=== PATIENT | male | born 1965 | race Caucasian/White ===

== ENCOUNTER → 2017-01-24 | Outpatient (CLI) | payer OTHER ==
--- NOTE | 2017-01-24 23:42 | MR ---
EXAMINATION TYPE: MR abdomen wo/w con DATE OF EXAM: 01/24/2017 COMPARISON: NONE HISTORY: ENCOUNTER FOR EXAMINATION POTENTIAL DONOR, RENAL MASS, INDETERMINATE , NORMAL RENAL FUNCTION CONTRAST: Standard multiplanar, multisequence MRI departmental protocol utilizing 18 mL intravenous MultiHance gadolinium contrast. FINDINGS: Liver shows no focal defect. Bile ducts are not dilated. Spleen has normal size and contour . There is no sign of a pancreatic mass. Gallbladder is somewhat contracted. There is no sign of retr operitoneal adenopathy. There is no sign of ascites. The kidneys have normal size and contour. There is no hydronephrosis. There are rounded fluid signal foci in both kidneys. There is an 8 mm cyst in the upper pole right kidney there is a 10 mm cyst in t he lower pole right kidney. There is a 10 mm cyst in the upper pole left kidney. There is an adjacent 8 mm cyst upper pole left kidney. There are other smaller cysts in both kidneys that measure up to 5 mm. There is no sign of a solid renal mass. There is no adrenal mass. The remainder of exam is unrem arkable. I see no pathologic enhancement. IMPRESSION: The exam shows bilateral multiple relatively small renal cortical cysts. No evidence of a solid renal mass.
== END | disposition home or self-care (01) ==
LOC: RADMRIMAIN 19:28
PROVIDERS: ATTEND Internal Medicine
DX: N28.1 Cyst of kidney, acquired (principal)
CPT/HCPCS: 74183; A9577

== ENCOUNTER 2018-01-17 08:24 | Day surgery (SDC) | payer BC, OTHER ==
[2018-01-16 08:55] VITALS: BMI 26.4
[~2018-01-17 08:24] MED LIST: LACTATED RINGERS 1,000 ML IV SCH
[2018-01-17] MEDS ORDERED: LIDOCAINE 1% 20 ML VIAL (10MG/ML) FOR IV START INTRADERMA ONE (08:36)
[2018-01-17 08:38] VITALS: RESP 16; TEMP 98.1
[2018-01-17] MEDS ORDERED: PROPOFOL 10 MG/ML 20 ML VIAL IV ONE (09:23)
--- NOTE | 2018-01-17 09:40 | P.PCN ---
Date of Procedure: 01/17/18 Procedure(s) Performed: BRIEF HISTORY: Patient is a 52-year-old pleasant pleasant white male scheduled for an elective colonoscopy as a part of screening for colorectal neoplasia. PROCEDURE PERFORMED: Colonoscopy with snare polypectomy. PREOPERATIVE DIAGNOSIS: Screening for colon cancer. IV sedation per Anesthesia. PROCEDURE: After informed consent was obtained, the patient, was brought into the endoscopy unit. IV sedation was administered by Anesthesia under continuous monitoring. Digital rectal examination was normal. Initially the Olympus CF- 160 flexible video colonoscope was then inserted in the rectum, gradually advanced into the cecum without any difficulty. Careful examination was performed as the scope was gradually being withdrawn. Ileocecal valve and the appendiceal orifice were visualized and appeared normal. Prep was excellent. Mucosa of the cecum, ascending colon, transverse colon, descending colon, sigmoid colon,appeared normal. In the rectal sigmoid colon at 20 cm from the anal verge there was a 1 cm broad-based polyp removed by snare polypectomy. Rectum appeared normal. Retroflexion was performed in the rectum and no lesions were seen. The patient tolerated the procedure well. IMPRESSION: 1 cm broad-based rectosigmoid polyp status post polypectomy Rest of the colon appeared normal RECOMMENDATIONS: Findings of this examination were discussed with the patient with as well as his family. He was advised to follow with the biopsy results. If the biopsy shows a tubular adenoma, he can have a repeat colonoscopy in 3 years.
[2018-01-17 10:03] VITALS: BP 116/76; PULSE 76
== END 2018-01-17 10:28 | disposition home or self-care (01) ==
LOC: ORWHC2ENDO 08:24
PROVIDERS: ATTEND Internal Medicine Gastroenterology
DX: Z12.11 Encounter for screening for malignant neoplasm of colon (principal); K63.5 Polyp of colon; Z91.030 Bee allergy status
CPT/HCPCS: 88305; 45385; J2704

== ENCOUNTER → 2019-08-08 | Outpatient (CLI) | payer BC ==
--- NOTE | 2019-08-08 14:37 | CONS ---
CONSULTATION DATE OF SERVICE: 08/08/2019 A 53-year-old gentleman who has been evaluated in the [facility] for possible obstructive sleep apnea-hypopnea syndrome. 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 Subsequently, his sleep schedule may change with relationship to his work schedule. He goes to bed at 6 am and gets up at noon when he is working. On the time when he is not working, he goes to bed at 10 pm and gets up around 7 a.m. No problems with falling asleep. No TV in bedroom. He usually sleeps on the back position with very loud snoring according to his . He wakes up from sleep 2 times with nocturia and dry mouth. During the day, he has problems with memory and difficulties to pay attention. [place] Sleepiness Scale is 7. PAST MEDICAL HISTORY: Positive for a left knee problems. PAST SURGICAL HISTORY: Left knee surgery for torn meniscus in 2014 and nephrectomy. The patient does is not sure what side for donation of the kidney in 2017. MEDICATIONS: Vitamin D3, fish oil, vitamin C, Osteo Bi-Flex. SOCIAL HISTORY: Positive for smoking about 1 pack a day for around 25 years, quit around 8 years ago, but presently sometimes smokes about 1 cigarette a day. Alcohol consumption very rarely. FAMILY HISTORY: Snoring. REVIEW OF SYSTEMS: Snoring, awakenings from sleep. PHYSICAL EXAM: gentleman without distress, BP 129/82, HR 89, RR 16, height 6,0, weight 206.8, body mass index 27.9, temperature 97.9, oxygen saturation at room air 98%. OROPHARYNX: Extremely low position of soft palate. Mallampati 4. NOSE: Asymmetric. Some restriction of nasal breathing; possibly nasal septum deviation. NECK: Supple, no JVD. Thyroid is not palpable. LUNGS: Clear to percussion and to auscultation. Good air exchange. No wheezing or rhonchi. HEART: S1, S2 regular. No murmurs, gallops, or rubs. ABDOMEN: Soft and nontender. Bowel sounds are present. No organomegaly appreciated. EXTREMITIES: No clubbing or cyanosis. BLUEPRINT DUPLICATOR: Awake, alert, and oriented X3. Cranial nerves 2 to 7 intact. There is no fasciculation or atrophy. noted. No focal deficits observed. IMPRESSION: 1. Snoring, awakening from sleep with nocturia, extremely low position of soft palate, Mallampati 4. Some restriction of nasal breathing, wide neck 17 inches in circumference, obstructive sleep apnea-hypopnea syndrome. 2. Loud snoring. 3. Swing-shift worker. 4. Isometric nose, possibly nasal septum deviation. 5. Status post nephrectomy for donation of kidney. 6. Status post left knee surgery for torn meniscus, 2014. PLAN: 1. Home sleep apnea test for evaluation of patient's breathing during sleep. 2. CPAP/BiPAP titration if sleep study confirms obstructive sleep apnea-hypopnea syndrome. 3. Preferable position during sleep on the side. 4. No driving if patient feels any sleepiness. 5. I will see patient for follow up visit to explain results of testing and following plan. Thank you very much for referring this patient for consultation. Sincerely, Vipin De La Garza MD, PhD, FAASM Diplomat of [employer] [employer] [employer] [facility] MMODL / IJN: [id number] /
== END | disposition home or self-care (01) ==
LOC: SLEEP 13:17
PROVIDERS: ATTEND Internal Medicine
DX: G47.33 Obstructive sleep apnea (adult) (pediatric) (principal); Z98.890 Other specified postprocedural states; Z90.5 Acquired absence of kidney
CPT/HCPCS: 99211

== ENCOUNTER 2019-09-24 07:58 | Inpatient (IN) | payer BC ==
[2019-09-24] MEDS ORDERED: HYDROmorphone 0.5 MG/0.5 ML SYRINGE IVP STA (08:12)
[2019-09-24] MEDS ORDERED: SODIUM CHLORIDE 0.9% 1,000 ML IV STA (08:12)
--- NOTE | 2019-09-24 08:14 | ED ---
General Adult HPI - General Chief complaint: Abdominal Pain Stated complaint: acute appendicitis Time Seen by Provider: 09/24/19 08:00 Source: patient, RN notes reviewed, old records reviewed Mode of arrival: ambulatory Limitations: no limitations - History of Present Illness Initial comments: This is a 53-year-old male who presents emergency department with past medical history significant for pancreatitis. Patient comes in today stating for 2 days he's had epigastric abdominal pain feels like his pain continues 8 years ago. Patient states she's not a drinker and is never had any gallbladder issues. Patient denies any fever chills per patient denies any nausea vomiting per patient any diarrhea per patient denies any chest pain difficulty breathing shortness of breath. - Related Data Home Medications Medication Instructions Recorded Confirmed Ascorbic Acid [Vitamin C] 500 mg PO DAILY 01/16/18 01/17/18 Cholecalciferol [Vitamin D3] 2,000 unit PO DAILY 01/16/18 01/17/18 Fish Oil/Dha/Epa [Fish Oil 1,200 1 each PO DAILY 01/16/18 01/17/18 mg Fish Oil] Multivitamins, Thera [Multivitamin 1 tab PO DAILY 01/16/18 01/17/18 (formulary)] Allergies Allergy/AdvReac Type Severity Reaction Status Date / Time venom-honey bee Allergy Unknown Verified 09/24/19 08:04 [bee venom (honey bee)] Childhood Review of Systems ROS Statement: Those systems with pertinent positive or pertinent negative responses have been documented in the HPI. ROS Other: All systems not noted in ROS Statement are negative. Past Medical History Past Medical History: No Reported History Additional Past Medical History / Comment(s): one kidney donated History of Any Multi-Drug Resistant Organisms: None Reported Past Surgical History: Orthopedic Surgery Additional Past Surgical History / Comment(s): nephrectomy-unsure which one, left knee surgergy Past Anesthesia/Blood Transfusion Reactions: No Reported Reaction Past Psychological History: No Psychological Hx Reported Smoking Status: Former smoker Past Alcohol Use History: Rare - Past Family History Brother(s) Family Medical History: Cancer General Exam - General Exam Comments Initial Comments: GENERAL: Patient is well-developed and well-nourished. Patient is nontoxic and well- hydrated and is in moderate distress. ENT: Neck is soft and supple. No significant lymphadenopathy is noted. Oropharynx is clear. Moist mucous membranes. Neck has full range of motion without eliciting any pain. EYES: The sclera were anicteric and conjunctiva were pink and moist. Extraocular movements were intact and pupils were equal round and reactive to light. Eyelids were unremarkable. PULMONARY: Unlabored respirations. Good breath sounds bilaterally. No audible rales rhonchi or wheezing was noted. CARDIOVASCULAR: There is a regular rate and rhythm without any murmurs gallops or rubs. ABDOMEN: Patient has epigastric and right upper quadrant abdominal pain SKIN: Skin is clear with no lesions or rashes and otherwise unremarkable. NEUROLOGIC: Patient is alert and oriented x3. Cranial nerves II through XII are grossly intact. Motor and sensory are also intact. Normal speech, volume and content. Symmetrical smile. MUSCULOSKELETAL: Normal extremities with adequate strength and full range of motion. No lower extremity swelling or edema. No calf tenderness. LYMPHATICS: No significant lymphadenopathy is noted PSYCHIATRIC: Normal psychiatric evaluation. Limitations: no limitations Course Vital Signs 09/24/19 07:59 Temperature 98.0 F Pulse Rate 83 Respiratory 18 Rate Blood Pressure 162/95 O2 Sat by Pulse 98 Oximetry Medical Decision Making - Medical Decision Making EKG shows normal sinus rhythm at 71 bpm WA interval is 136 dresses 88 QT interval 38 QTC is 421. Patient's EKG shows no ST segment elevation or depression. Patient was feeling much better after the medications were given. Ultrasound showed no acute cholecystitis - Lab Data Result diagrams: 09/24/19 08:30 09/24/19 08:30 Lab Results 09/24/19 09/24/19 Range/Units 08:30 08:30 WBC 15.3 H (3.8-10.6) k/uL RBC 5.40 (4.30-5.90) m/uL Hgb 16.8 (13.0-17.5) gm/dL Hct 48.4 (39.0-53.0) % MCV 89.6 (80.0-100.0) fL MCH 31.0 (25.0-35.0) pg MCHC 34.6 (31.0-37.0) g/dL RDW 12.3 (11.5-15.5) % Plt Count 295 (150-450) k/uL Neutrophils % 84 % Lymphocytes % 7 % Monocytes % 5 % Eosinophils % 2 % Basophils % 1 % Neutrophils # 12.8 H (1.3-7.7) k/uL Lymphocytes # 1.1 (1.0-4.8) k/uL Monocytes # 0.8 (0-1.0) k/uL Eosinophils # 0.2 (0-0.7) k/uL Basophils # 0.1 (0-0.2) k/uL Sodium 135 L (137-145) mmol/L Potassium 4.6 (3.5-5.1) mmol/L Chloride 102 (98-107) mmol/L Carbon Dioxide 22 (22-30) mmol/L Anion Gap 11 mmol/L BUN 14 (9-20) mg/dL Creatinine 0.90 (0.66-1.25) mg/dL Est GFR (CKD-EPI)AfAm >90 (>60 ml/min/1.73 sqM) Est GFR (CKD-EPI)NonAf >90 (>60 ml/min/1.73 sqM) Glucose 118 H (74-99) mg/dL Calcium 9.5 (8.4-10.2) mg/dL Total Bilirubin 1.3 (0.2-1.3) mg/dL AST 27 (17-59) U/L ALT 25 (4-49) U/L Alkaline Phosphatase 107 (38-126) U/L Total Protein 7.8 (6.3-8.2) g/dL Albumin 4.3 (3.5-5.0) g/dL Amylase 1706 H* (30-110) U/L Lipase (23-300) U/L Disposition Clinical Impression: Pancreatitis Disposition: ADMITTED IP TO THIS HOSP Referrals: Benjamin De MD [Primary Care Provider] - 1-2 days Time of Disposition: 09:39
[2019-09-24 08:58] LABS: ALT 25 U/L (4-49); AST 27 U/L (17-59); African American GFR (CKD) >90 (>60 ml/min/1.73 sqM); Albumin 4.3 g/dL (3.5-5.0); Alkaline Phosphatase 107 U/L (38-126); Anion Gap 11 mmol/L; Basophils # (A) 0.1 k/uL (0-0.2); Basophils % (A) 1 %; Blood Urea Nitrogen 14 mg/dL (9-20); Calcium 9.5 mg/dL (8.4-10.2); Carbon Dioxide 22 mmol/L (22-30); Chloride 102 mmol/L (98-107); Eosinophils # (A) 0.2 k/uL (0-0.7); Eosinophils % (A) 2 %; Glucose 118 mg/dL (74-99); HCT 48.4 % (39.0-53.0); HGB 16.8 gm/dL (13.0-17.5); Lymphocytes # (A) 1.1 k/uL (1.0-4.8); Lymphocytes % (A) 7 %; MCHC 34.6 g/dL (31.0-37.0); MCV 89.6 fL (80.0-100.0); Mean Platelet Volume 6.9; Monocytes # (A) 0.8 k/uL (0-1.0); Monocytes % (A) 5 %; Neutrophils # (A) 12.8 k/uL (1.3-7.7); Neutrophils % (A) 84 %; Non-African American GFR(CKD) >90 (>60 ml/min/1.73 sqM); Platelet Count 295 k/uL (150-450); Potassium 4.6 mmol/L (3.5-5.1); RDW 12.3 % (11.5-15.5); Sodium 135 mmol/L (137-145); Total Bilirubin 1.3 mg/dL (0.2-1.3); Total Protein 7.8 g/dL (6.3-8.2); WBC 15.3 k/uL (3.8-10.6)
--- NOTE | 2019-09-24 09:28 | US ---
EXAMINATION TYPE: US gallbladder DATE OF EXAM: 09/24/2019 COMPARISON: MRI abdomen January 24, 2017 CLINICAL HISTORY: Right upper quadrant abdominal pain . Pain. EXAM MEASUREMENTS: Liver Length: 18.2 cm Gallbladder Wall: 0.3 cm CBD: 0.4 cm Right Kidney: 10.8 x 5.6 x 5.4 cm Limited due to overlying bowel gas Pancreas: Head and tail obscured by bowel gas. Main pancreatic duct = 4.3 mm. Body appears echogen ic. Liver: Appears slightly enlarged Gallbladder: wnl Evidence for sonographic Robles's sign: neg CBD: wnl Right Kidney: No hydronephrosis or masses seen Visualized pancreas is slightly heterogeneous with pancreatic duct mildly dilated at 4 mm towards the proximal body. Portions are obscured by overlying bowel gas. Prominent right hepatic lobe redemonstr ated. Liver is heterogeneous without intrahepatic ductal dilatation. Evaluation for focal masses subo ptimal due to the heterogeneity. No surrounding ascites. Gallbladder appears within normal limits. Li mited images right kidney show no hydronephrosis. Tiny thin-walled cysts on MRI less well-seen on ult rasound images. IMPRESSION: 1. No gallstones or ultrasound evidence for acute cholecystitis. 2. Mild diffuse fatty infiltration of liver is suspected. Correlate clinically. 3. Mild the minimal dilatation of visualized portion of the pancreatic duct in the proximal body. Adv ise pancreatic protocol contrast-enhanced CT or MRI to rule out pancreatic head mass.
[2019-09-24] MEDS ORDERED: SODIUM CHLORIDE 0.9% 1,000 ML IV ONE (09:40)
[2019-09-24] MEDS ORDERED: ONDANSETRON 4 MG/2 ML VIAL IVP PRN (09:41)
[2019-09-24 09:42] LABS: Amylase 1724 U/L (30-110)
[2019-09-24 12:26] LABS: Appearance,Urine Clear (Clear); Bilirubin,Urine Negative (Negative); Blood,Urine Small (Negative); Color,Urine Yellow; Glucose,Urine (UA) Negative (Negative); Ketones,Urine 1+ (Negative); Leukocyte Esterase,Urine Negative (Negative); Mucus,Urine Rare /hpf; Nitrite,Urine Negative (Negative); Protein,Urine 1+ (Negative); RBC,Urine 25 /hpf (0-5); Specific Gravity,Urine 1.018 (1.001-1.035); Urobilinogen,Urine <2.0 mg/dL (<2.0); WBC,Urine 1 /hpf (0-5)
[2019-09-24] MEDS ORDERED: IOPAMIDOL CONTRAST (ORAL USE) VIAL PO PRN (12:51)
[2019-09-24] MEDS: HYDROmorphone 0.5 MG/0.5 ML SYRINGE IVP PRN ×3 (13:04→22:22)
--- NOTE | 2019-09-24 16:36 | CT ---
EXAMINATION TYPE: CT abdomen pelvis w con DATE OF EXAM: 09/24/2019 COMPARISON: Gallbladder ultrasound earlier today. MRI abdomen January 24, 2017 HISTORY: pancreatitis CT DLP: 966.2 mGycm, Automated Exposure Control for Dose Reduction was Utilized. CONTRAST: CT scan of the abdomen and pelvis is performed with oral water and with IV Contrast, patient injected with 100 mL of Isovue 300. FINDINGS: LUNG BASES: Left greater than right bibasilar linear scarring and/or atelectasis LIVER/GB: Liver is heterogeneously hypodense suggesting mild diffuse fatty infiltration. PANCREAS: Pancreas shows visualized duct which is measured upper limits of normal. There is mild diff use prominence with mild to moderate diffuse surrounding fluid and fat stranding. No well-formed flui d collection. No areas of nonenhancement. SPLEEN: No significant abnormality is seen. ADRENALS: Nonspecific slight nodular thickening to left adrenal gland. KIDNEYS: Left kidney is surgically absent. Right kidney shows a few scattered simple thin-walled cyst s throughout. BOWEL: No significant abnormality is seen. PROSTATE/SEMINAL VESICLES: No gross abnormality seen. LYMPH NODES: No greater than 1cm abdominal or pelvic lymph nodes are appreciated. OSSEOUS STRUCTURES: Moderate disc space narrowing and vacuum disc phenomenon lumbosacral junction. OTHER: There is ventral wall hernia near umbilicus containing fat and tiny mesenteric vessels, cortic al scars superior to this is noted in the midline of the anterior abdomen. IMPRESSION: CT findings consistent with a fairly moderate uncomplicated acute pancreatitis. No suspic ious pancreatic masses.
[2019-09-24] MEDS: SODIUM CHLORIDE 0.9% 1,000 ML IV SCH (17:27)
--- NOTE | 2019-09-24 18:30 | CONS ---
CONSULTATION DATE OF DICTATION: 09/24/2019 REASON FOR CONSULTATION: Acute recurrent pancreatitis. HISTORY OF PRESENT ILLNESS: The patient is a 53-year-old pleasant white male who was admitted to the hospital when he presented with severe epigastric pain that started on Monday morning. The pain continued to progressively get worse. He became nauseated and came into the emergency room and subsequently was admitted to the hospital with acute pancreatitis. The patient had a similar episode in July of 2018 and was admitted to [facility] for one week. He has no history of alcohol use. He did have ultrasound of the gallbladder done in the past, which was negative for any gallstones. No family history of acute pancreatitis. During this hospitalization he was noted to have elevated amylase and lipase at 1724 and 9666 consistent with acute pancreatitis. Serum transaminases are within normal limits. PAST MEDICAL HISTORY: Acute pancreatitis in July of 2018. PAST SURGICAL HISTORY: Nephrectomy. HOME MEDICATIONS: Medications at home include vitamin C, vitamin D3, fish oil and multivitamin. SOCIAL HISTORY: No smoking. No alcohol use. FAMILY HISTORY: Unremarkable. REVIEW OF SYSTEMS: CARDIOPULMONARY: No chest pain or shortness of breath. GENITOURINARY: No dysuria or hematuria. MUSCULOSKELETAL: Unremarkable. SKIN: Unremarkable. ENDOCRINE: Unremarkable. PSYCHIATRIC: Unremarkable. NEUROLOGY: Unremarkable. ENT/VISION: Unremarkable. CONSTITUTIONAL: No recent weight loss. No fever, chills, night sweats. HEMATOLOGY: Unremarkable. PHYSICAL EXAMINATION: He appears comfortable. No apparent distress. VITAL SIGNS: Stable. Blood pressure 150/96, pulse rate 80, temperature 96. HEENT examination unremarkable. Conjunctivae pink. Sclerae anicteric. Oral cavity no lesions. NECK: No JVD or lymph node enlargement. CHEST: Clear to auscultation. HEART: Regular rate and rhythm. ABDOMEN: Soft. Bowel sounds are positive. Mild tenderness in the epigastric area. EXTREMITIES: No pedal edema. SKIN: No rashes. NEUROLOGIC: Alert and oriented x3. No focal deficits. LABS/IMAGING: WBC 15.3, hemoglobin 16.8, platelets normal. Basic metabolic panel is within normal limits. Amylase 1724, lipase 9664. ALT, AST, T-bilirubin and alkaline phosphatase are normal. Ultrasound of the abdomen was done this morning that showed slightly dilated pancreatic duct. No gallstones. CT of the abdomen was recommended, which was done this afternoon and revealed findings consistent with fairly moderate uncomplicated acute pancreatitis. No suspicious pancreatic masses or ductal dilation seen. IMPRESSION: Acute recurrent pancreatitis, this being the second episode. The last episode was in July of 2018, at which time he had a hospitalization of one week. No history of alcohol use. Gallbladder ultrasound does not show any evidence of gallstones. His serum transaminases are normal, which makes it unlikely we are dealing with biliary pancreatitis. We will investigate him for autoimmune pancreatitis and also for metabolic causes. RECOMMENDATIONS: 1. N.p.o. 2. Aggressive IV hydration. 3. Repeat labs in the morning. 4. Obtain serum triglycerides and IgG4 levels. 5. The patient will be scheduled for endoscopic ultrasound of the pancreas on an outpatient basis to investigate the etiology. The plan was discussed with him. He is agreeable to it. Thank you for this consultation. MMODL / IJN: [id number] /
[2019-09-24] MEDS: PANTOPRAZOLE 40 MG/10 ML VIAL IVP SCH (20:43)
[2019-09-24] MEDS ORDERED: ENOXAPARIN 40 MG/0.4 ML SYRINGE SQ SCH (23:45)
--- NOTE | 2019-09-24 23:45 | P.HPIM ---
History of Present Illness H&P Date: 09/24/19 Chief Complaint: Abdominal pain History of presenting complaint: This is a very pleasant 53-year-old patient of Dr. griffiths. Normally in fairly good health. Back in July 2018 did have an episode of pancreatitis of [facility]. Patient does complete a course of antibiotics for pneumonia. Now presents with increasing abdominal pain that progressively bec lupe worse in the upper abdomen. No nausea vomiting no fever no chills. Normally has 1 or 2 bowel movements a day. Pain is localized to the upper abdomen did not radiate. No obvious exacerbating or relieving factors. Review of systems: GEN.: Tired EYES: None HEENT: None NECK: None RESPIRATORY: None CARDIOVASCULAR: None GASTROINTESTINAL: As above GENITOURINARY: None MUSCULOSKELETAL: None LYMPHATICS: None HEMATOLOGICAL: None PSYCHIATRY: None NEUROLOGICAL: None. Past medical history to include: Patient has snoring but not been diagnosed with LACHO, no arthritis no reflux Social history: Patient smoked for about 30 years stopped in 2010. Alcohol rarely. 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 . Physical examination: VITAL SIGNS: 98, 83, 18, 162/95, 98% room air GENERAL: BMI 27.8, laying in bed not in distress]. EYES: Pupils equal. Conjunctiva normal. HEENT: External appearance of nose and ears normal, oral cavity grossly normal. NECK: JVD not raised; masses not palpable. HEART: First and second heart sounds are normal; no edema. LUNGS: Respiratory rate normal; clear to auscultation. ABDOMEN: Soft, epigastric tenderness, no guarding or rigidity, liver spleen not palpable, no masses palpable. PSYCH: Alert and oriented x3; mood and affect normal. NEUROLOGICAL: Cranial nerves grossly intact; no facial asymmetry, power and sensation grossly intact. LYMPHATICS: No lymph nodes palpable in the axilla and neck INVESTIGATIONS, reviewed in the clinical context: White count 15.3 hemoglobin 16.8 potassium 4.6 creatinine 0.90 Amylase 1724, lipase 9664 Abdominal ultrasound-no gallstones, mild diffuse fatty infiltration of the liver, minimally titrated pancreatic duct EKG tracing personally reviewed by me-normal sinus rhythm Assessment: -Likely idiopathic pancreatitis could be viral. Patient has no obvious gallstones and no history of any alcoholism. -Leukocytosis from pancreatitis Plan: GI was consulted. Patient put on IV fluids. Was made nothing by mouth. Patient's less significant tenderness. If better by tomorrow morning. The patient clear liquids. Repeat pancreatic enzymes in the morning. Lovenox for DVT prophylaxis. Care was discussed in detail with the patient question were answered. Past Medical History Past Medical History: No Reported History, GERD/Reflux, Pneumonia Additional Past Medical History / Comment(s): Recently diagnosed 09/18/19 with bronchial pneumonia, 08/13/18 pancreatitis, being worked up for LACHO, bilateral knees worn cartlidge-receives injections. History of Any Multi-Drug Resistant Organisms: None Reported Past Surgical History: Orthopedic Surgery Additional Past Surgical History / Comment(s): L nephrectomy (donor), L knee surgery for meniscus tear, L thumb injury with tendon repair, colonoscopy, bilateral eye lasik surgery for vision correction. Past Anesthesia/Blood Transfusion Reactions: No Reported Reaction Smoking Status: Former smoker - Past Family History Brother(s) Family Medical History: Cancer Father Family Medical History: COPD Additional Family Medical History / Comment(s): Father lived to be 89yrs old. He was a smoker. Mother Family Medical History: CVA/TIA Additional Family Medical History / Comment(s): Mother has heart issues and CVA. She is 89yrs old. Medications and Allergies Home Medications Medication Instructions Recorded Confirmed Type Famotidine [Pepcid] 20 mg PO BID 09/24/19 09/24/19 History Glycopyrrolate/Formoterol Fum 2 puff INHALATION RT-BID 09/24/19 09/24/19 History [Bevespi Aerosphere Inhaler] Levofloxacin [Levaquin] 500 mg PO DAILY 09/24/19 09/24/19 History Magnesium Citrate [Citrate of 296 ml PO ONCE 09/24/19 09/24/19 History Magnesia] Psyllium Husk [Metamucil] 0.4 gm PO DAILY 09/24/19 09/24/19 History Allergies Allergy/AdvReac Type Severity Reaction Status Date / Time venom-honey bee Allergy Unknown Verified 09/24/19 08:04 [bee venom (honey bee)] Childhood Physical Exam Vitals: Vital Signs Temp Pulse Resp BP Pulse Ox 09/24/19 10:44 18 09/24/19 09:52 80 18 150/96 96 09/24/19 07:59 98.0 F 83 18 162/95 98 Intake and Output 09/23/19 09/24/19 09/24/19 22:59 06:59 14:59 Other: Voiding Method Toilet Weight 92.986 kg Results CBC & Chem 7: 09/24/19 08:30 09/24/19 08:30 Labs: Abnormal Lab Results - Last 24 Hours (Table) 09/24/19 09/24/19 Range/Units 08:30 08:30 WBC 15.3 H (3.8-10.6) k/uL Neutrophils # 12.8 H (1.3-7.7) k/uL Sodium 135 L (137-145) mmol/L Glucose 118 H (74-99) mg/dL Amylase 1724 H* (30-110) U/L Lipase 9664 H (23-300) U/L Thrombosis Risk Factor Assmnt - Choose All That Apply Any of the Below Risk Factors Present?: Yes Each Factor Represents 1 point: Age 41-60 years, Obesity (BMI >25) Other Risk Factors: No Other congenital or acquired thrombophilia - If yes, enter type in comment: No Thrombosis Risk Factor Assessment Total Risk Factor Score: 2 Thrombosis Risk Factor Assessment Level: Low Risk
[2019-09-25] MEDS: HYDROmorphone 0.5 MG/0.5 ML SYRINGE IVP PRN (03:16)
[2019-09-25] MEDS: SODIUM CHLORIDE 0.9% 1,000 ML IV SCH ×3 (03:18→13:57)
[2019-09-25 08:06] LABS: Cholesterol 169 mg/dL (<200); HDL Cholesterol 56 mg/dL (40-60); LDL Cholesterol,Calculated 92 mg/dL (0-99); Triglycerides 107 mg/dL (<150)
[2019-09-25 08:23] LABS: Amylase 364 U/L (30-110)
[2019-09-25] MEDS ORDERED: ACETAMINOPHEN TAB 325 MG TAB PO PRN (08:27)
[2019-09-25] MEDS ORDERED: ENOXAPARIN 40 MG/0.4 ML SYRINGE SQ SCH (09:00)
[2019-09-25] MEDS: PANTOPRAZOLE 40 MG/10 ML VIAL IVP SCH (10:14)
[2019-09-25 11:27] LABS: IgG Subclass 3 12.6 mg/dL (11.0-85.0); IgG Subclass 4 36.8 mg/dL (3.0-175.0)
[2019-09-25 12:31] VITALS: BP 149/77; PULSE 74; RESP 16; TEMP 98.3
--- NOTE | 2019-09-30 21:15 | P.DS ---
Providers Date of admission: 09/24/19 09:40 Expected date of discharge: 09/25/19 Attending physician: Gurdeep Tracy Consults: 09/24/19 09:40 Consult Physician Urgent Consulting Provider: Brittanie Silveira Consult Reason/Comments: Acute pancreatitis Do you want consulting provider notified?: Yes Primary care physician: Benjamin De [facility] Course: Chief Complaint: Abdominal pain History of presenting complaint: This is a very pleasant 53-year-old patient of Dr. de. Normally in fairly good health. Back in July 2018 did have an episode of pancreatitis of [facility]. Patient does complete a course of antibiotics for pneumonia. Now presents with increasing abdominal pain that progressively became worse in the upper abdomen. No nausea vomiting no fever no chills. Normally has 1 or 2 bowel movements a day. Pain is localized to the upper abdomen did not radiate. No obvious exacerbating or relieving factors. Admit callum with with acute pancreatitis. Patient was made nothing by mouth. Given IV fluids. Improved. Before discharge started tolerating a diet. Consultation: Dr. Noemí Silveira from GI Physical examination: VITAL SIGNS: 37.5, 70, 18, 149/77, 98% on room air GENERAL: Laying in bed, comfortable EYES: Pupils equal. Conjunctiva normal. HEENT: External appearance of nose and ears normal, oral cavity grossly normal. NECK: JVD not raised; masses not palpable. HEART: First and second heart sounds are normal; no edema. LUNGS: Respiratory rate normal; clear to auscultation. ABDOMEN: Soft, no tenderness, no guarding or rigidity, liver spleen not palpable, no masses palpable. PSYCH: Alert and oriented x3; mood and affect normal. INVESTIGATIONS, reviewed in the clinical context: Amylase 364, lipase 639 Previous testing White count 15.3 hemoglobin 16.8 potassium 4.6 creatinine 0.90 Amylase 1724, lipase 9664 Abdominal ultrasound-no gallstones, mild diffuse fatty infiltration of the liver, minimally titrated pancreatic duct EKG tracing personally reviewed by me-normal sinus rhythm Assessment: -Likely idiopathic pancreatitis could be viral. Patient has no obvious gallstones and no history of any alcoholism. -Leukocytosis from pancreatitis -Ketonuria from decreased by mouth intake Disposition: Home Plan - Discharge Summary Discharge Rx Participant: No New Discharge Prescriptions: Continue Famotidine [Pepcid] 20 mg PO BID Psyllium Husk [Metamucil] 0.4 gm PO DAILY Glycopyrrolate/Formoterol Fum [Bevespi Aerosphere Inhaler] 2 puff INHALATION RT-BID Discontinued Magnesium Citrate [Citrate of Magnesia] 296 ml PO ONCE Levofloxacin [Levaquin] 500 mg PO DAILY Discharge Medication List Famotidine [Pepcid] 20 mg PO BID 09/24/19 [History] Glycopyrrolate/Formoterol Fum [Bevespi Aerosphere Inhaler] 2 puff INHALATION RT- BID 09/24/19 [History] Psyllium Husk [Metamucil] 0.4 gm PO DAILY 09/24/19 [History] Follow up Appointment(s)/Referral(s): Brittanie Silveira MD [STAFF PHYSICIAN] - 10/09/19 4:00 pm Benjamin De MD [Primary Care Provider] - 09/27/19 2:00 pm Patient Instructions/Handouts: Pancreatitis (DC), Low Fat Diet (DC) Activity/Diet/Wound Care/Special Instructions: Low fat diet Discharge later today if tolerates lunch. Discharge Disposition: HOME SELF-CARE
== END 2019-09-25 15:12 | disposition home or self-care (01) | DRG 440 ==
LOC: EC 07:58 → 5NMEDONC 09:40
PROVIDERS: ADMIT Hospitalist; ATTEND Hospitalist
DX: K85.90 Acute pancreatitis without necrosis or infection, unspecified (principal); K86.1 Other chronic pancreatitis; Z87.891 Personal history of nicotine dependence; Z90.5 Acquired absence of kidney; Z91.030 Bee allergy status; Z87.01 Personal history of pneumonia (recurrent); Z82.3 Family history of stroke; Z82.5 Family history of asthma and other chronic lower respiratory diseases; Z80.9 Family history of malignant neoplasm, unspecified
CPT/HCPCS: 36415; 74177; 76705; 80053; 80061; 81001; 82150; 82787; 83690; 85025; 93005; 96361; 96374; 99285

== ENCOUNTER → 2020-03-02 | Outpatient (CLI) | payer BC ==
--- NOTE | 2020-03-02 22:26 | MR ---
EXAMINATION TYPE: MR MRCP DATE OF EXAM: 03/02/2020 COMPARISON: CT abdomen and pelvis September 24, 2019. MRI abdomen January 24, 2017. HISTORY: chronic pancreatitis. Two bouts over last 14months Standard multiplanar, multisequence MRI departmental protocol Multiplanar, multisequence images of the abdomen were acquired. Thin and thick slice MRCP imaging per formed on MRI scanner. FINDINGS: Liver/gallbladder/pancreas/biliary system: The liver remains normal in size without concerning solid or cystic mass. Gallbladder folds within normal limits without intraluminal gallstones. Pancreas size slightly diminished from most recent CT felt upper limits of normal in size. No concerning new solid or cystic mass identified. MRCP imaging shows no suspicious intrahepatic or extrahepatic biliary dil atation. No suspicious pancreatic ductal dilatation. There is persistent thin-walled cyst or cystic lesion adjacent to the pancreas measuring 12 mm axial image 17 series 501 adjacent to the SMA and uncinate process. This lesion appears to communication to a side minor pancreatic duct which has direct communication to the main pancreatic duct seen best on MRCP imaging. Lesion not within are surrounded by pancreatic tissue. Other: Simple-appearing thin-walled cysts scattered throughout the right kidney redemonstrated. Left kidney surgically absent. Lung bases are clear. Adrenal glands and spleen within normal limits. No frederick spicious bowel dilatation. No abdominal ascites. Visualized osseous structures are intact. IMPRESSION: MRCP imaging demonstrates 1.2 cm thin-walled cyst with ductal communication to the main p ancreatic duct favoring pseudocyst with complication as appears adjacent to the uncinate process of t he pancreas.
== END | disposition home or self-care (01) ==
LOC: RADMRIMAIN 15:17
PROVIDERS: ATTEND Internal Medicine
DX: K86.2 Cyst of pancreas (principal); K86.1 Other chronic pancreatitis
CPT/HCPCS: 74181

== ENCOUNTER 2020-03-10 07:56 | Inpatient (IN) | payer BC ==
[2020-03-10] MEDS ORDERED: SODIUM CHLORIDE 0.9% 500 ML 500 ML IV STA (08:10)
--- NOTE | 2020-03-10 08:24 | ED ---
General Adult HPI - General Chief complaint: Abdominal Pain Stated complaint: abd pain Time Seen by Provider: 03/10/20 08:02 Source: patient, RN notes reviewed, old records reviewed Mode of arrival: ambulatory Limitations: no limitations - History of Present Illness Initial comments: 55-year-old male history of pancreatitis presenting for evaluation of epigastric abdominal pain. Patient is otherwise quite healthy. He reports over the past 24 hours he developed an epigastric pain which is similar to previous episodes of pancreatitis. No vomiting. He had a normal bowel movement today. No dysuria or hematuria. He is currently following with gastroenterology regarding this recurrent pancreatitis. He does state that he had an MRCP approximately one week ago, he is uncertain of the results of this test. He denies heavy alcohol consumption, states he had 2 beers 48 hours ago. No history of gallstones. - Related Data Home Medications Medication Instructions Recorded Confirmed Ascorbic Acid [Vitamin C] 500 mg PO DAILY 03/10/20 03/10/20 Glucosamine/Chondr Zayas A Sod [Osteo 1 tab PO DAILY 03/10/20 03/10/20 Bi-Flex Caplet] Multivitamins, Thera [Multivitamin 1 tab PO DAILY 03/10/20 03/10/20 (formulary)] [place]-3 Fatty Acids/Fish Oil [Fish 1 cap PO DAILY 03/10/20 03/10/20 Oil 1,000 mg Softgel] Allergies Allergy/AdvReac Type Severity Reaction Status Date / Time venom-honey bee Allergy Unknown Verified 03/10/20 08:43 [bee venom (honey bee)] Childhood Review of Systems ROS Statement: Those systems with pertinent positive or pertinent negative responses have been documented in the HPI. ROS Other: All systems not noted in ROS Statement are negative. Past Medical History Past Medical History: GERD/Reflux, Pneumonia Additional Past Medical History / Comment(s): Recently diagnosed 09/18/19 with bronchial pneumonia, 08/13/18 pancreatitis, being worked up for LACHO, bilateral knees worn cartlidge-receives injections. History of Any Multi-Drug Resistant Organisms: None Reported Past Surgical History: Orthopedic Surgery Additional Past Surgical History / Comment(s): L nephrectomy (donor), L knee surgery for meniscus tear, L thumb injury with tendon repair, colonoscopy, bilateral eye lasik surgery for vision correction. Past Anesthesia/Blood Transfusion Reactions: No Reported Reaction Past Psychological History: No Psychological Hx Reported Smoking Status: Current some day smoker Past Alcohol Use History: Occasional Past Drug Use History: None Reported - Past Family History Brother(s) Family Medical History: Cancer Father Family Medical History: COPD Additional Family Medical History / Comment(s): Father lived to be 89yrs old. He was a smoker. Mother Family Medical History: CVA/TIA Additional Family Medical History / Comment(s): Mother has heart issues and CVA. She is 89yrs old. General Exam Limitations: no limitations General appearance: alert, in no apparent distress Head exam: Present: atraumatic, normocephalic Eye exam: Present: normal appearance, PERRL ENT exam: Present: normal exam Neck exam: Present: normal inspection. Absent: tenderness, meningismus Respiratory exam: Present: normal lung sounds bilaterally. Absent: respiratory distress, wheezes Cardiovascular Exam: Present: regular rate, normal rhythm GI/Abdominal exam: Present: soft, tenderness (Minimal epigastric tenderness). Absent: distended, guarding, rebound Extremities exam: Present: normal inspection, normal capillary refill. Absent: pedal edema, calf tenderness Neurological exam: Present: alert, oriented X3, CN II-XII intact. Absent: motor sensory deficit Psychiatric exam: Present: normal affect, normal mood Skin exam: Present: warm, dry, intact. Absent: cyanosis, diaphoretic Course Vital Signs 03/10/20 03/10/20 07:59 09:10 Temperature 98.1 F Pulse Rate 70 61 Respiratory 16 18 Rate Blood Pressure 159/91 121/75 O2 Sat by Pulse 98 98 Oximetry Medical Decision Making - Medical Decision Making 54-year-old male presenting for evaluation of epigastric abdominal pain, history of pancreatitis. Patient has stable vitals, he has tenderness in the epigastrium. Normal CBC, CMP unremarkable, amylase and lipase are critically high. Given the severity of enzyme elevation patient will be admitted for IV fluids, kept nothing by mouth, will be evaluated by gastroenterology. - Lab Data Result diagrams: 03/10/20 08:14 03/10/20 08:14 Lab Results 03/10/20 03/10/20 03/10/20 Range/Units 08:14 08:14 08:14 WBC 8.3 (3.8-10.6) k/uL RBC 5.07 (4.30-5.90) m/uL Hgb 16.2 (13.0-17.5) gm/dL Hct 46.2 (39.0-53.0) % MCV 91.0 (80.0-100.0) fL MCH 31.9 (25.0-35.0) pg MCHC 35.0 (31.0-37.0) g/dL RDW 12.6 (11.5-15.5) % Plt Count 267 (150-450) k/uL Neutrophils % 68 % Lymphocytes % 16 % Monocytes % 5 % Eosinophils % 8 % Basophils % 1 % Neutrophils # 5.7 (1.3-7.7) k/uL Lymphocytes # 1.3 (1.0-4.8) k/uL Monocytes # 0.5 (0-1.0) k/uL Eosinophils # 0.6 (0-0.7) k/uL Basophils # 0.1 (0-0.2) k/uL PT 9.7 (9.0-12.0) sec INR 0.9 (<1.2) APTT 24.8 (22.0-30.0) sec Sodium 137 (137-145) mmol/L Potassium 4.4 (3.5-5.1) mmol/L Chloride 106 (98-107) mmol/L Carbon Dioxide 21 L (22-30) mmol/L Anion Gap 10 mmol/L BUN 24 H (9-20) mg/dL Creatinine 0.94 (0.66-1.25) mg/dL Est GFR (CKD-EPI)AfAm >90 (>60 ml/min/1.73 sqM) Est GFR (CKD-EPI)NonAf >90 (>60 ml/min/1.73 sqM) Glucose 106 H (74-99) mg/dL Calcium 8.9 (8.4-10.2) mg/dL Total Bilirubin 0.6 (0.2-1.3) mg/dL AST 38 (17-59) U/L ALT 28 (4-49) U/L Alkaline Phosphatase 114 (38-126) U/L Troponin I (0.000-0.034) ng/mL Total Protein 7.3 (6.3-8.2) g/dL Albumin 4.5 (3.5-5.0) g/dL Amylase 3239 H* (30-110) U/L Lipase >79144 H (23-300) U/L Urine Color Urine Appearance (Clear) Urine pH (5.0-8.0) Ur Specific [place] (1.001-1.035) Urine Protein (Negative) Urine Glucose (UA) (Negative) Urine Ketones (Negative) Urine Blood (Negative) Urine Nitrite (Negative) Urine Bilirubin (Negative) Urine Urobilinogen (<2.0) mg/dL Ur Leukocyte Esterase (Negative) Urine RBC (0-5) /hpf Urine WBC (0-5) /hpf Urine Bacteria (None) /hpf Urine Mucus (None) /hpf 03/10/20 03/10/20 Range/Units 08:14 08:22 WBC (3.8-10.6) k/uL RBC (4.30-5.90) m/uL Hgb (13.0-17.5) gm/dL Hct (39.0-53.0) % MCV (80.0-100.0) fL MCH (25.0-35.0) pg MCHC (31.0-37.0) g/dL RDW (11.5-15.5) % Plt Count (150-450) k/uL Neutrophils % % Lymphocytes % % Monocytes % % Eosinophils % % Basophils % % Neutrophils # (1.3-7.7) k/uL Lymphocytes # (1.0-4.8) k/uL Monocytes # (0-1.0) k/uL Eosinophils # (0-0.7) k/uL Basophils # (0-0.2) k/uL PT (9.0-12.0) sec INR (<1.2) APTT (22.0-30.0) sec Sodium (137-145) mmol/L Potassium (3.5-5.1) mmol/L Chloride (98-107) mmol/L Carbon Dioxide (22-30) mmol/L Anion Gap mmol/L BUN (9-20) mg/dL Creatinine (0.66-1.25) mg/dL Est GFR (CKD-EPI)AfAm (>60 ml/min/1.73 sqM) Est GFR (CKD-EPI)NonAf (>60 ml/min/1.73 sqM) Glucose (74-99) mg/dL Calcium (8.4-10.2) mg/dL Total Bilirubin (0.2-1.3) mg/dL AST (17-59) U/L ALT (4-49) U/L Alkaline Phosphatase (38-126) U/L Troponin I <0.012 (0.000-0.034) ng/mL Total Protein (6.3-8.2) g/dL Albumin (3.5-5.0) g/dL Amylase (30-110) U/L Lipase (23-300) U/L Urine Color Yellow Urine Appearance Clear (Clear) Urine pH 5.5 (5.0-8.0) Ur Specific [place] 1.017 (1.001-1.035) Urine Protein Negative (Negative) Urine Glucose (UA) Negative (Negative) Urine Ketones Negative (Negative) Urine Blood Trace H (Negative) Urine Nitrite Negative (Negative) Urine Bilirubin Negative (Negative) Urine Urobilinogen <2.0 (<2.0) mg/dL Ur Leukocyte Esterase Negative (Negative) Urine RBC 1 (0-5) /hpf Urine WBC <1 (0-5) /hpf Urine Bacteria Rare H (None) /hpf Urine Mucus Rare H (None) /hpf Disposition Clinical Impression: Pancreatitis Disposition: ADMITTED IP TO THIS [facility] Condition: Stable Is patient prescribed a controlled substance at d/c from ED?: No Referrals: Benjamin De MD [Primary Care Provider] - 1-2 days Decision to Admit Reason: Admit from EC Decision Date: 03/10/20 Decision Time: 09:46
[2020-03-10 08:33] LABS: Basophils # (A) 0.1 k/uL (0-0.2); Basophils % (A) 1 %; Eosinophils # (A) 0.6 k/uL (0-0.7); Eosinophils % (A) 8 %; HCT 46.2 % (39.0-53.0); HGB 16.2 gm/dL (13.0-17.5); Lymphocytes # (A) 1.3 k/uL (1.0-4.8); Lymphocytes % (A) 16 %; MCH 31.9 pg (25.0-35.0); Mean Platelet Volume 7.1; Monocytes # (A) 0.5 k/uL (0-1.0); Monocytes % (A) 5 %; Neutrophils # (A) 5.7 k/uL (1.3-7.7); Neutrophils % (A) 68 %; Platelet Count 267 k/uL (150-450); RBC 5.07 m/uL (4.30-5.90); RDW 12.6 % (11.5-15.5); WBC 8.3 k/uL (3.8-10.6)
--- NOTE | 2020-03-10 08:38 | XR ---
KUB HISTORY: Abdominal pain Frontal KUB and 2 images Lung bases are clear. Surgical clips present in left upper and lower quadrants. No evident bowel obst ruction or pneumoperitoneum. Degenerative disc changes are present in the visualized spine. Possible vascular calcifications within the pelvis. IMPRESSION: Nonspecific bowel gas pattern. Postop changes.
[2020-03-10 08:41] LABS: Appearance,Urine Clear (Clear); Bacteria,Urine Rare /hpf; Bilirubin,Urine Negative (Negative); Blood,Urine Trace (Negative); Color,Urine Yellow; Glucose,Urine (UA) Negative (Negative); Ketones,Urine Negative (Negative); Leukocyte Esterase,Urine Negative (Negative); Mucus,Urine Rare /hpf; Nitrite,Urine Negative (Negative); PH, Urine 5.5 (5.0-8.0); Protein,Urine Negative (Negative); RBC,Urine 1 /hpf (0-5); Specific Gravity,Urine 1.017 (1.001-1.035); Urobilinogen,Urine <2.0 mg/dL (<2.0); WBC,Urine <1 /hpf (0-5)
[2020-03-10 08:46] LABS: INR 0.9 (<1.2); Prothrombin Time 9.7 sec (9.0-12.0)
[2020-03-10 08:47] LABS: Partial Thromboplastin Time 24.8 sec (22.0-30.0)
[2020-03-10 08:56] LABS: ALT 28 U/L (4-49); AST 38 U/L (17-59); African American GFR (CKD) >90 (>60 ml/min/1.73 sqM); Albumin 4.5 g/dL (3.5-5.0); Alkaline Phosphatase 114 U/L (38-126); Anion Gap 10 mmol/L; Blood Urea Nitrogen 24 mg/dL (9-20); Calcium 8.9 mg/dL (8.4-10.2); Carbon Dioxide 21 mmol/L (22-30); Chloride 106 mmol/L (98-107); Glucose 106 mg/dL (74-99); Non-African American GFR(CKD) >90 (>60 ml/min/1.73 sqM); Potassium 4.4 mmol/L (3.5-5.1); Sodium 137 mmol/L (137-145); Total Bilirubin 0.6 mg/dL (0.2-1.3); Total Protein 7.3 g/dL (6.3-8.2)
[2020-03-10 09:34] LABS: Amylase 3239 U/L (30-110)
[2020-03-10] MEDS ORDERED: NALOXONE 0.4 MG/ML 1 ML VIAL IV PRN (09:43)
[2020-03-10] MEDS ORDERED: MORPHINE SULFATE 4 MG/ML SYRINGE IV PRN (09:43)
[2020-03-10] MEDS: SODIUM CHLORIDE 0.9% 1,000 ML IV SCH ×2 (10:12→20:20)
[2020-03-10] MEDS ORDERED: MORPHINE SULFATE 2 MG/ML SYRINGE IV PRN (12:29)
[2020-03-10] MEDS: ONDANSETRON 4 MG/2 ML VIAL IVP PRN ×2 (12:37→20:30)
--- NOTE | 2020-03-10 12:41 | US ---
EXAMINATION TYPE: US gallbladder DATE OF EXAM: 03/10/2020 COMPARISON: US, CT 09/24/2019 CLINICAL HISTORY: pancreatitis. Pancreatitis, pain EXAM MEASUREMENTS: Liver Length: 17.9 cm Gallbladder Wall: 0.2 cm CBD: 0.3 cm Right Kidney: 11.8 x 5.4 x 6.0 cm Pancreas: Body wnl, head and tail obscured by overlying bowel gas Liver: Upper limits for size, difficult to penetrate Gallbladder: wnl Evidence for sonographic Robles's sign: No CBD: wnl Right Kidney: wnl IMPRESSION: Findings consistent with hepatic steatosis. Some limitations of the exam.
--- NOTE | 2020-03-10 13:14 | P.HPIM ---
History of Present Illness H&P Date: 03/10/20 Chief Complaint: Abdominal pain This is a 54-year-old male with history of idiopathic recurrent acute pancreatitis who presented to the emergency room with epigastric pain. Patient said that his pain started all of a sudden last night and he was anywhere between 7-10 out of 10 in severity. He denies any radiation. No nausea or vomiting. He is having normal bowel movement. He was evaluated in the ER and was found to have a lipase greater than 20,000. He is currently admitted to the hospital for further management. Patient denies any alcohol use. He is not sure if he has been evaluated for hypertriglyceridemia or autoimmune pancreatitis. He recently had an MRCP showing a small pseudocyst. He is currently following with GI in the clinic in that regard. Review of Systems Review of system: 14 points review of systems were obtained and were negative except to what were mentioned in the HPI. Past Medical History Past Medical History: GERD/Reflux, Pneumonia Additional Past Medical History / Comment(s): Recently diagnosed 09/18/19 with bronchial pneumonia, 08/13/18 pancreatitis, being worked up for LACHO, bilateral knees worn cartlidge-receives injections. History of Any Multi-Drug Resistant Organisms: None Reported Past Surgical History: Orthopedic Surgery Additional Past Surgical History / Comment(s): L nephrectomy (donor), L knee surgery for meniscus tear, L thumb injury with tendon repair, colonoscopy, bilateral eye lasik surgery for vision correction. Past Anesthesia/Blood Transfusion Reactions: No Reported Reaction Smoking Status: Current some day smoker - Past Family History Brother(s) Family Medical History: Cancer Father Family Medical History: COPD Additional Family Medical History / Comment(s): Father lived to be 89yrs old. He was a smoker. Mother Family Medical History: CVA/TIA Additional Family Medical History / Comment(s): Mother has heart issues and CVA. She is 89yrs old. Medications and Allergies Home Medications Medication Instructions Recorded Confirmed Type Ascorbic Acid [Vitamin C] 500 mg PO DAILY 03/10/20 03/10/20 History Glucosamine/Chondr Zayas A Sod [Osteo 1 tab PO DAILY 03/10/20 03/10/20 History Bi-Flex Caplet] Multivitamins, Thera [Multivitamin 1 tab PO DAILY 03/10/20 03/10/20 History (formulary)] [place]-3 Fatty Acids/Fish Oil [Fish 1 cap PO DAILY 03/10/20 03/10/20 History Oil 1,000 mg Softgel] Allergies Allergy/AdvReac Type Severity Reaction Status Date / Time venom-honey bee Allergy Unknown Verified 03/10/20 08:43 [bee venom (honey bee)] Childhood Physical Exam Vitals: Vital Signs Temp Pulse Pulse Resp BP BP Pulse Ox 03/10/20 11:05 97.7 F 67 16 121/85 96 03/10/20 09:10 61 18 121/75 98 03/10/20 07:59 98.1 F 70 16 159/91 98 Intake and Output 03/09/20 03/10/20 03/10/20 22:59 06:59 14:59 Other: Weight 90.718 kg General: The patient is awake and alert, in no distress Eye: there is normal conjunctiva bilaterally. Neck: The neck is supple, there is no JVD. Cardiovascular: Normal S1-S2, no S3-S4, no murmurs. Respiratory: Lungs clear to auscultation bilaterally Gastrointestinal: Abdomen is soft, there is mild tenderness to palpation in the epigastric area Musculoskeletal: There is no pedal edema. Neurological:. Speech is normal. Skin: Skin is warm and dry Results CBC & Chem 7: 03/10/20 08:14 03/10/20 08:14 Labs: Abnormal Lab Results - Last 24 Hours (Table) 03/10/20 03/10/20 Range/Units 08:14 08:22 Carbon Dioxide 21 L (22-30) mmol/L BUN 24 H (9-20) mg/dL Glucose 106 H (74-99) mg/dL Amylase 3239 H* (30-110) U/L Lipase >95935 H (23-300) U/L Urine Blood Trace H (Negative) Urine Bacteria Rare H (None) /hpf Urine Mucus Rare H (None) /hpf Assessment and Plan Assessment: 1. Acute pancreatitis, recurrent unknown etiology. Patient denies alcohol abuse. Triglyceride level was normal in September during last episode. No history of gallstones. Repeat ultrasound done in the ER awaiting report. Awaiting GI evaluation. Continue IV fluid hydration, nothing by mouth, pain control with IV morphine as needed. Recent MRCP showed small pseudocyst 2. DVT prophylaxis with subcu heparin
[2020-03-10] MEDS: HEPARIN SODIUM,PORCINE 5,000 UNIT/ML 1 ML VIAL SQ SCH (20:25)
--- NOTE | 2020-03-11 01:55 | CONS ---
CONSULTATION DATE OF DICTATION: 03/10/2020. REASON FOR CONSULTATION: Acute recurrent pancreatitis. HISTORY OF PRESENT ILLNESS: The patient is a 54-year-old pleasant white male admitted to the hospital with acute onset of severe epigastric pain that started last night. The pain continued to progressively get worse associated with some nausea but no emesis, came into the emergency room, was noted to have elevated lipase more than 20,000. The patient had 2 other episodes of acute pancreatitis. The first one was 14 months ago and the second one was 3 months ago. He did have workup done including workup for autoimmune pancreatitis, which was negative. The patient was seen at [facility] and recently had an MRCP done on outpatient basis a week ago that revealed a small pancreatic pseudocyst. He is feeling much better this morning. Abdominal pain has improved. No nausea, no vomiting. No fever, chills, night sweats. PAST MEDICAL HISTORY: GERD, acute recurrent pancreatitis, degenerative joint disease. PAST SURGICAL HISTORY: Left knee surgery, left nephrectomy was a kidney donor, colonoscopy in the past, LASIK surgery. MEDICATIONS: Medications at home include vitamin C, Osteo Bi-Flex, multivitamin, fish oil. ALLERGIES: BEE VENOM. FAMILY HISTORY: Father had COPD. Mother had CVA. SOCIAL HISTORY: Chronic smoker. No alcohol use. REVIEW OF SYSTEMS: CARDIOPULMONARY: No chest pain, shortness of breath. GENITOURINARY: No dysuria or hematuria. MUSCULOSKELETAL: Unremarkable. SKIN: Unremarkable. ENDOCRINE: Unremarkable. PSYCHIATRIC: Unremarkable. NEUROLOGY: Unremarkable. ENT/VISION: Unremarkable. CONSTITUTIONAL: No recent weight loss. No fever, chills, or night sweats. PHYSICAL EXAMINATION: He appears comfortable. No apparent distress. Vital signs are stable. Blood pressure is 121/85, pulse rate is 67, temperature 97.7. HEENT EXAMINATION: Unremarkable. Conjunctivae pink. Sclerae anicteric. Oral cavity no lesions. NECK: No JVD or lymph node enlargement. CHEST: Clear to auscultation. HEART: Regular rate and rhythm. ABDOMEN: Soft. There was tenderness in the epigastric area. Bowel sounds are positive. No organomegaly. EXTREMITIES: No pedal edema. SKIN: No rashes. NEUROLOGIC: Alert and oriented x3. No focal deficits. Ultrasound of the abdomen done today did not show any evidence of gallstones. There was evidence of hepatic steatosis. LABS: Labs at the time of admission to the hospital: WBC 8.3, hemoglobin 16.2, platelets normal. Amylase 3239, lipase more than 20,000. ALT, AST, T-bilirubin and alkaline phosphatase are within normal limits. IMPRESSION: 1. Acute recurrent pancreatitis this being the third episode. The patient presented with severe epigastric pain, nausea, vomiting. Lipase more than 20,000. Serum transaminases are within normal limits. Ultrasound of the abdomen did not show evidence of gallstones. The patient has no history of alcohol abuse. During his previous episode of pancreatitis in September of this year, he did have workup and fasting triglycerides, serum IgG4 levels are all within normal limits. Recently he was seen at [facility] for further evaluation of acute recurrent pancreatitis. He was scheduled for an MRCP that was done a week ago that showed a small pancreatic pseudocyst. RECOMMENDATION: 1. Continue symptomatic and supportive care. 2. Aggressive IV hydration. 3. Pain medications, as needed. 4. Repeat labs in the morning. If they are improving he can be started on clear liquid diet tomorrow. 5. Following discharge from the hospital, he can follow up with the pancreatic specialist at [facility]. Thank you for this consultation. MMODL / IJN: [id number] /
[2020-03-11] MEDS: ACETAMINOPHEN TAB 325 MG TAB PO PRN ×2 (03:42→23:21)
[2020-03-11] MEDS: SODIUM CHLORIDE 0.9% 1,000 ML IV SCH ×4 (03:47→23:22)
[2020-03-11 08:35] LABS: ALT 24 U/L (4-49); AST 34 U/L (17-59); African American GFR (CKD) >90 (>60 ml/min/1.73 sqM); Albumin 3.9 g/dL (3.5-5.0); Alkaline Phosphatase 92 U/L (38-126); Anion Gap 5 mmol/L; Blood Urea Nitrogen 15 mg/dL (9-20); Calcium 8.7 mg/dL (8.4-10.2); Carbon Dioxide 26 mmol/L (22-30); Chloride 107 mmol/L (98-107); Glucose 77 mg/dL (74-99); Non-African American GFR(CKD) >90 (>60 ml/min/1.73 sqM); Potassium 4.7 mmol/L (3.5-5.1); Sodium 138 mmol/L (137-145); Total Protein 6.6 g/dL (6.3-8.2)
[2020-03-11 08:36] LABS: Amylase 673 U/L (30-110)
[2020-03-11 08:37] LABS: Basophils # (A) 0.1 k/uL (0-0.2); Basophils % (A) 1 %; Eosinophils # (A) 0.6 k/uL (0-0.7); Eosinophils % (A) 11 %; HCT 46.3 % (39.0-53.0); HGB 15.2 gm/dL (13.0-17.5); Lymphocytes # (A) 1.5 k/uL (1.0-4.8); Lymphocytes % (A) 30 %; MCHC 32.9 g/dL (31.0-37.0); MCV 94.3 fL (80.0-100.0); Mean Platelet Volume 7.3; Monocytes # (A) 0.3 k/uL (0-1.0); Monocytes % (A) 5 %; Neutrophils # (A) 2.5 k/uL (1.3-7.7); Neutrophils % (A) 49 %; Platelet Count 235 k/uL (150-450); RBC 4.91 m/uL (4.30-5.90); RDW 12.6 % (11.5-15.5)
[2020-03-11] MEDS: HEPARIN SODIUM,PORCINE 5,000 UNIT/ML 1 ML VIAL SQ SCH ×2 (08:47→20:06)
--- NOTE | 2020-03-11 11:47 | P.PN ---
Subjective Progress Note Date: 03/11/20 Patient is doing better today. Abdominal pain is improved significantly. No nausea or vomiting. Objective - Vital Signs Vital signs: Vital Signs Temp 97.6 F 03/11/20 04:10 Pulse 54 L 03/11/20 04:10 Resp 16 03/11/20 04:10 BP 123/69 03/11/20 04:10 Pulse Ox 96 03/11/20 04:10 Intake & Output 03/10/20 03/11/20 03/11/20 18:59 06:59 18:59 Intake Total 0 Balance 0 Weight 90.718 kg Intake: Oral 0 Other: Voiding Method Urinal # Voids 3 - Exam General: The patient is awake and alert, in no distress Eye: there is normal conjunctiva bilaterally. Neck: The neck is supple, there is no JVD. Cardiovascular: Normal S1-S2, no S3-S4, no murmurs. Respiratory: Lungs clear to auscultation bilaterally Gastrointestinal: Abdomen is soft, nontender Musculoskeletal: There is no pedal edema. Neurological:. Speech is normal. Skin: Skin is warm and dry - Labs CBC & Chem 7: 03/11/20 07:27 03/11/20 07:27 Labs: Abnormal Lab Results - Last 24 Hours (Table) 03/11/20 Range/Units 07:27 Amylase 673 H* (30-110) U/L Lipase 1857 H (23-300) U/L Assessment and Plan Assessment: 1. Acute pancreatitis, recurrent unknown etiology. Patient denies alcohol abuse. Triglyceride level was normal in September during last episode. No history of gallstones. Autoimmune pancreatitis workup negative in the past. Repeat ultrasound done in the ER showed no acute findings. Seen and evaluated by GI. Started on clear liquids today for lunch. pain control with IV morphine as needed. Recent MRCP showed small pseudocyst 2. DVT prophylaxis with subcu heparin
--- NOTE | 2020-03-11 16:09 | PN ---
PROGRESS NOTE DATE OF DICTATION: 03/11/2020 This patient is a 54-year-old pleasant white male admitted to the hospital with acute recurrent pancreatitis. He is feeling much better. Has some epigastric discomfort but overall feeling much better compared to yesterday. Nausea and vomiting have resolved. PHYSICAL EXAMINATION: Blood pressure is 123/69, pulse rate 54, temperature 97.6. HEENT examination unremarkable. Conjunctivae pink. Sclerae anicteric. Oral cavity no lesions. NECK: No JVD or lymph node enlargement. CHEST: Clear to auscultation. HEART: Regular rate and rhythm. ABDOMEN: Mild tenderness in the epigastric area. Bowel sounds are positive. No organomegaly. EXTREMITIES: No pedal edema. SKIN: No rashes. NEUROLOGIC: Alert and oriented x3. No focal deficits. LABS: Labs from today show WBC 5, hemoglobin 15.2, platelets normal. Amylase and lipase are down to 673 and 1857, respectively. Total bilirubin and alkaline phosphatase are within normal limits. ALT and AST are normal. IMPRESSION: Acute recurrent pancreatitis, this being the third episode. Etiology remains unclear. All workup so far has been negative. Amylase and lipase are gradually improving. Abdominal pain has improved. RECOMMENDATIONS: 1. Start him on a clear liquid diet. 2. Continue pain medications as needed. 3. If his labs continue to improve, he can be advanced to a low-fat diet tomorrow and can be discharged home with outpatient followup at the [facility], which has already been scheduled. Thank you for this consultation. MMMAEL / LEATHAN: [id number] /
[2020-03-11 20:35] VITALS: RESP 18
[2020-03-12] MEDS: HEPARIN SODIUM,PORCINE 5,000 UNIT/ML 1 ML VIAL SQ SCH (07:39)
[2020-03-12 08:00] LABS: Basophils # (A) 0.1 k/uL (0-0.2); Basophils % (A) 1 %; Eosinophils # (A) 0.5 k/uL (0-0.7); Eosinophils % (A) 12 %; HCT 45.4 % (39.0-53.0); HGB 15.4 gm/dL (13.0-17.5); Lymphocytes # (A) 1.3 k/uL (1.0-4.8); Lymphocytes % (A) 35 %; MCH 31.2 pg (25.0-35.0); MCHC 33.9 g/dL (31.0-37.0); MCV 92.2 fL (80.0-100.0); Mean Platelet Volume 7.2; Monocytes # (A) 0.3 k/uL (0-1.0); Monocytes % (A) 7 %; Neutrophils # (A) 1.6 k/uL (1.3-7.7); Neutrophils % (A) 41 %; Platelet Count 258 k/uL (150-450); RBC 4.93 m/uL (4.30-5.90); RDW 12.5 % (11.5-15.5); WBC 3.8 k/uL (3.8-10.6)
[2020-03-12 08:21] LABS: ALT 29 U/L (4-49); AST 37 U/L (17-59); African American GFR (CKD) >90 (>60 ml/min/1.73 sqM); Alkaline Phosphatase 88 U/L (38-126); Amylase 199 U/L (30-110); Anion Gap 6 mmol/L; Blood Urea Nitrogen 12 mg/dL (9-20); Calcium 8.9 mg/dL (8.4-10.2); Carbon Dioxide 26 mmol/L (22-30); Chloride 106 mmol/L (98-107); Glucose 95 mg/dL (74-99); Non-African American GFR(CKD) >90 (>60 ml/min/1.73 sqM); Potassium 4.7 mmol/L (3.5-5.1); Sodium 138 mmol/L (137-145); Total Bilirubin 0.9 mg/dL (0.2-1.3); Total Protein 6.8 g/dL (6.3-8.2)
[2020-03-12 11:44] VITALS: BP 139/88; PULSE 60; TEMP 97.5
--- NOTE | 2020-03-12 13:18 | P.DS ---
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 In the ER patient was found to have elevated lipase. Patient was admitted for management of acute pancreatitis. In past admissions patient has had extensive workup done for his pancreatitis. Patient denies alcohol abuse. His triglycerides within normal limits. Autoimmune panel was also within normal limits. MRCP showed small pseudocyst. During this admission patient was started on IV fluids. Once his pain improved he was started on a diet. At the time of discharge patient was able to tolerate a diet. Patient was told to follow-up at [facility] for further workup to find the etiology office pancreatitis. I spent greater than 30 minutes completing all discharge tasks Patient Condition at Discharge: Stable Plan - Discharge Summary Discharge Rx Participant: Yes New Discharge Prescriptions: Continue Multivitamins, Thera [Multivitamin (formulary)] 1 tab PO DAILY Ascorbic Acid [Vitamin C] 500 mg PO DAILY [place]-3 Fatty Acids/Fish Oil [Fish Oil 1,000 mg Softgel] 1 cap PO DAILY Glucosamine/Chondr Zayas A Sod [Osteo Bi-Flex Caplet] 1 tab PO DAILY Discharge Medication List Ascorbic Acid [Vitamin C] 500 mg PO DAILY 03/10/20 [History] Glucosamine/Chondr Zayas A Sod [Osteo Bi-Flex Caplet] 1 tab PO DAILY 03/10/20 [History] Multivitamins, Thera [Multivitamin (formulary)] 1 tab PO DAILY 03/10/20 [History] [place]-3 Fatty Acids/Fish Oil [Fish Oil 1,000 mg Softgel] 1 cap PO DAILY 03/10/20 [History] Follow up Appointment(s)/Referral(s): Benjamin De MD [Primary Care Provider] - 1-2 days (patient requesting to call and make his own appointment) Patient Instructions/Handouts: Pancreatitis (DC) Discharge Disposition: HOME SELF-CARE
--- NOTE | 2020-03-12 17:24 | PN ---
PROGRESS NOTE DATE OF DICTATION: 03/12/2020 Patient is a 54-year-old pleasant white male admitted to the hospital with acute recurrent pancreatitis. He is feeling much better. Amylase and lipase have improved. He is on a low-fat diet, tolerating well, and he wants to be discharged home. PHYSICAL EXAMINATION: Appears comfortable. VITAL SIGNS: Stable. Blood pressure 133/75, temperature 97.7 and pulse rate 55. HEENT examination unremarkable. Conjunctivae pink. Sclerae anicteric. Oral cavity no lesions. NECK: No JVD or lymph node enlargement. CHEST: Clear to auscultation. HEART: Regular rate and rhythm. ABDOMEN: Soft. Very minimal tenderness in the epigastric area. Rest of the abdomen benign. EXTREMITIES: No pedal edema. NEUROLOGIC: Alert and oriented x3. No focal deficits. LABS: CBC with differential count is within normal limits. Amylase 199, lipase 214. IMPRESSION: Acute recurrent pancreatitis, this being the third episode. Patient being evaluated at [facility]. He recently had an MRCP done a week ago that showed a small cyst in the pancreatic head. In the past he did have workup with IgG4 levels are that were normal. Serum fasting triglycerides were normal. No history of alcohol use. RECOMMENDATIONS: 1. Continue with low-fat diet. 2. He can be discharged home today. 3. He was advised to follow up at [facility]. 4. Follow up in the office after all workup is done. Thank you for this consultation. SAMUELL / LEATHAN: [id number] /
== END 2020-03-12 13:19 | disposition home or self-care (01) | DRG 439 ==
LOC: EC 07:56 → 5NMEDONC 09:43
PROVIDERS: ADMIT Internal Medicine; ATTEND Internal Medicine
DX: K85.90 Acute pancreatitis without necrosis or infection, unspecified (principal); K86.3 Pseudocyst of pancreas; K86.1 Other chronic pancreatitis; F17.200 Nicotine dependence, unspecified, uncomplicated; K21.9 Gastro-esophageal reflux disease without esophagitis; M19.90 Unspecified osteoarthritis, unspecified site; Z11.59 Encounter for screening for other viral diseases; Z52.4 Kidney donor; Z87.01 Personal history of pneumonia (recurrent); Z91.030 Bee allergy status; Z82.3 Family history of stroke; Z82.5 Family history of asthma and other chronic lower respiratory diseases; Z80.9 Family history of malignant neoplasm, unspecified
CPT/HCPCS: 36415; 74018; 76705; 80053; 81001; 82150; 83690; 84484; 85025; 85610; 85730; 96360; 99285

== ENCOUNTER 2020-05-10 00:26 | Inpatient (IN) | payer BC ==
[2020-05-10] MEDS ORDERED: SODIUM CHLORIDE 0.9% 1,000 ML IV STA ×2 (00:54)
[2020-05-10] MEDS ORDERED: MORPHINE SULFATE 4 MG/ML SYRINGE IV STA (00:54)
[2020-05-10] MEDS ORDERED: ONDANSETRON 4 MG/2 ML VIAL IVP STA (00:54)
[2020-05-10] MEDS ORDERED: PANTOPRAZOLE 40 MG/10 ML VIAL IVP STA (00:54)
[2020-05-10] MEDS ORDERED: SODIUM CHLORIDE 0.9% 500 ML 500 ML IV STA (00:54)
--- NOTE | 2020-05-10 00:55 | ED ---
Abdominal Pain HPI - General Chief Complaint: Abdominal Pain Stated Complaint: Pancreatitis Time Seen by Provider: 05/10/20 00:50 Source: patient, RN notes reviewed, old records reviewed Mode of arrival: ambulatory Limitations: no limitations - History of Present Illness Initial Comments: This is a 54-year-old male DF for evaluation of abdominal pain. Epigastric right upper quadrant abdominal pain. Patient has a history of pain sectors. Patient had upper GI with no complication being pancreatitis. Patient was seen at [facility] for prior surgery, no recent other travel history or sick contacts denies any alcohol abuse. No fevers MD Complaint: abdominal pain -: hour(s) Location: RUQ, epigastric Radiation: epigastric Migration to: bilateral flank Severity: moderate Severity scale (1-10): 7 Quality: stabbing, sharp Consistency: constant Improves With: nothing Worsens With: nothing Context: recent surgery/procedure Associated Symptoms: nausea - Related Data Home Medications Medication Instructions Recorded Confirmed Ascorbic Acid [Vitamin C] 500 mg PO DAILY 03/10/20 03/10/20 Glucosamine/Chondr Zayas A Sod [Osteo 1 tab PO DAILY 03/10/20 03/10/20 Bi-Flex Caplet] Multivitamins, Thera [Multivitamin 1 tab PO DAILY 03/10/20 03/10/20 (formulary)] [place]-3 Fatty Acids/Fish Oil [Fish 1 cap PO DAILY 03/10/20 03/10/20 Oil 1,000 mg Softgel] Allergies Allergy/AdvReac Type Severity Reaction Status Date / Time venom-honey bee Allergy Unknown Verified 05/10/20 00:49 [bee venom (honey bee)] Childhood Review of Systems ROS Statement: Those systems with pertinent positive or pertinent negative responses have been documented in the HPI. ROS Other: All systems not noted in ROS Statement are negative. Past Medical History Past Medical History: Pneumonia Additional Past Medical History / Comment(s): Recently diagnosed 09/18/19 with bronchial pneumonia, 08/13/18 pancreatitis ( 4 times ), being worked up for LACHO, bilateral knees worn cartlidge-receives injections. History of Any Multi-Drug Resistant Organisms: None Reported Past Surgical History: Orthopedic Surgery Additional Past Surgical History / Comment(s): L nephrectomy (donor), L knee surgery for meniscus tear, L thumb injury with tendon repair, colonoscopy, bilat eral eye lasik surgery for vision correction. ERCP Past Anesthesia/Blood Transfusion Reactions: No Reported Reaction Past Psychological History: No Psychological Hx Reported Smoking Status: Former smoker Past Alcohol Use History: None Reported Past Drug Use History: None Reported - Past Family History Brother(s) Family Medical History: Cancer Father Family Medical History: COPD Additional Family Medical History / Comment(s): Father lived to be 89yrs old. He was a smoker. Mother Family Medical History: CVA/TIA Additional Family Medical History / Comment(s): Mother has heart issues and CVA. She is 89yrs old. General Exam Limitations: no limitations General appearance: alert, in no apparent distress Head exam: Present: atraumatic, normocephalic, normal inspection Eye exam: Present: normal appearance, PERRL, EOMI. Absent: scleral icterus, conjunctival injection, periorbital swelling ENT exam: Present: normal exam, mucous membranes moist Neck exam: Present: normal inspection. Absent: tenderness, meningismus, lymphadenopathy Respiratory exam: Present: normal lung sounds bilaterally. Absent: respiratory distress, wheezes, rales, rhonchi, stridor Cardiovascular Exam: Present: regular rate, normal rhythm, normal heart sounds. Absent: systolic murmur, diastolic murmur, rubs, gallop, clicks GI/Abdominal exam: Present: soft, tenderness (epigastric), normal bowel sounds. Absent: distended, guarding, rebound, rigid Extremities exam: Present: normal inspection, full ROM, normal capillary refill. Absent: tenderness, pedal edema, joint swelling, calf tenderness Back exam: Present: normal inspection Neurological exam: Present: alert, oriented X3, CN II-XII intact Psychiatric exam: Present: normal affect, normal mood Skin exam: Present: warm, dry, intact, normal color. Absent: rash Course Vital Signs 05/10/20 05/10/20 00:44 02:00 Temperature 98.6 F Pulse Rate 73 60 Respiratory 18 18 Rate Blood Pressure 156/72 134/70 O2 Sat by Pulse 100 99 Oximetry - Reevaluation(s) Reevaluation #1: 05/10/20 00:55 Medical record is reviewed Reevaluation #2: 05/10/20 03:02 Patient has pain that is controlled Medical Decision Making - Medical Decision Making 54 male DF for evaluation of severe pain. Patient's pain is well-controlled, will admit for acute pancreatitis secondary to procedure - Lab Data Result diagrams: 05/10/20 01:06 05/10/20 01:06 Lab Results 05/10/20 05/10/20 05/10/20 Range/Units 01:06 01:06 01:06 WBC 9.8 (3.8-10.6) k/uL RBC 5.23 (4.30-5.90) m/uL Hgb 15.9 (13.0-17.5) gm/dL Hct 47.1 (39.0-53.0) % MCV 90.0 (80.0-100.0) fL MCH 30.3 (25.0-35.0) pg MCHC 33.7 (31.0-37.0) g/dL RDW 12.0 (11.5-15.5) % Plt Count 251 (150-450) k/uL Neutrophils % 76 % Lymphocytes % 12 % Monocytes % 5 % Eosinophils % 5 % Basophils % 1 % Neutrophils # 7.4 (1.3-7.7) k/uL Lymphocytes # 1.2 (1.0-4.8) k/uL Monocytes # 0.5 (0-1.0) k/uL Eosinophils # 0.5 (0-0.7) k/uL Basophils # 0.1 (0-0.2) k/uL Sodium 138 (137-145) mmol/L Potassium 4.7 (3.5-5.1) mmol/L Chloride 103 (98-107) mmol/L Carbon Dioxide 27 (22-30) mmol/L Anion Gap 8 mmol/L BUN 27 H (9-20) mg/dL Creatinine 1.22 (0.66-1.25) mg/dL Est GFR (CKD-EPI)AfAm 79 (>60 ml/min/1.73 sqM) Est GFR (CKD-EPI)NonAf 68 (>60 ml/min/1.73 sqM) Glucose 109 H (74-99) mg/dL Plasma Lactic Acid Tenzin 0.8 (0.7-2.0) mmol/L Calcium 9.5 (8.4-10.2) mg/dL Total Bilirubin 0.9 (0.2-1.3) mg/dL AST 41 (17-59) U/L ALT 26 (4-49) U/L Alkaline Phosphatase 91 (38-126) U/L Total Protein 7.6 (6.3-8.2) g/dL Albumin 4.6 (3.5-5.0) g/dL Amylase 4837 H* (30-110) U/L Lipase >63116 H (23-300) U/L - Radiology Data Radiology results: report reviewed (X-ray KUB is negative for acute disease), image reviewed Disposition Clinical Impression: Pancreatitis, Abdominal pain, Acute pancreatitis Disposition: ADMITTED IP TO THIS [facility] Condition: Good Is patient prescribed a controlled substance at d/c from ED?: No Referrals: Benjamin De MD [REFERRING] - 1-2 days
[2020-05-10 01:19] LABS: Basophils # (A) 0.1 k/uL (0-0.2); Basophils % (A) 1 %; Eosinophils # (A) 0.5 k/uL (0-0.7); Eosinophils % (A) 5 %; HCT 47.1 % (39.0-53.0); HGB 15.9 gm/dL (13.0-17.5); Lymphocytes # (A) 1.2 k/uL (1.0-4.8); Lymphocytes % (A) 12 %; MCH 30.3 pg (25.0-35.0); MCHC 33.7 g/dL (31.0-37.0); Mean Platelet Volume 6.9; Monocytes # (A) 0.5 k/uL (0-1.0); Monocytes % (A) 5 %; Neutrophils # (A) 7.4 k/uL (1.3-7.7); Neutrophils % (A) 76 %; Platelet Count 251 k/uL (150-450); RBC 5.23 m/uL (4.30-5.90); WBC 9.8 k/uL (3.8-10.6)
[2020-05-10 01:39] LABS: ALT 26 U/L (4-49); AST 41 U/L (17-59); African American GFR (CKD) 79 (>60 ml/min/1.73 sqM); Albumin 4.6 g/dL (3.5-5.0); Alkaline Phosphatase 91 U/L (38-126); Anion Gap 8 mmol/L; Blood Urea Nitrogen 27 mg/dL (9-20); Calcium 9.5 mg/dL (8.4-10.2); Carbon Dioxide 27 mmol/L (22-30); Chloride 103 mmol/L (98-107); Glucose 109 mg/dL (74-99); Non-African American GFR(CKD) 68 (>60 ml/min/1.73 sqM); Potassium 4.7 mmol/L (3.5-5.1); Sodium 138 mmol/L (137-145); Total Bilirubin 0.9 mg/dL (0.2-1.3); Total Protein 7.6 g/dL (6.3-8.2)
--- NOTE | 2020-05-10 01:39 | XR ---
EXAMINATION TYPE: XR KUB DATE OF EXAM: 05/10/2020 COMPARISON: 03/10/2020 HISTORY: Pain TECHNIQUE: 2 views upright FINDINGS: There is no sign of intestinal obstruction or pneumoperitoneum. Fecal pattern is normal. Th ere are no pathologic calcifications. Lung bases are clear. There is no evidence of abdominal mass. IMPRESSION: Nonacute abdomen. No change.
[2020-05-10 02:28] LABS: Amylase 4837 U/L (30-110)
[2020-05-10] MEDS ORDERED: ONDANSETRON 4 MG/2 ML VIAL IVP PRN (03:00)
[2020-05-10] MEDS ORDERED: SODIUM CHLORIDE 0.9% 1,000 ML IV ONE (03:08)
[2020-05-10] MEDS: MORPHINE SULFATE 4 MG/ML SYRINGE IVP PRN ×3 (03:42→19:47)
[2020-05-10] MEDS: PANTOPRAZOLE 40 MG/10 ML VIAL IVP SCH (08:36)
[2020-05-10] MEDS: LACTATED RINGERS 1,000 ML IV SCH ×3 (13:16→23:22)
[2020-05-10] MEDS: ENOXAPARIN 40 MG/0.4 ML SYRINGE SQ SCH (13:16)
--- NOTE | 2020-05-10 17:19 | P.HPIM ---
History of Present Illness H&P Date: 05/10/20 Chief Complaint: Abdominal pain History of presenting complaint: This is a very pleasant 54-year-old patient of Dr. griffiths. Patient prior to today, his had 3 bouts of pancreatitis. Patient underwent endoscopic ultrasound and he was to [place] 2 days ago. Grossly no obvious abnormality was found. Patient came home doing okay. Last night patient started having increasing progressive epigastric pain. Progressed to become rather severe. Patient had nausea followed by vomiting. No fever no chills. Became with severe. Decided to come to the ER. Patient found to have acute pancreatitis. With amylase of 4837, lipase greater than 20,000. Started IV fluids. Nothing by mouth given pain medications but to bedrest. Review of systems: GEN.: Tired EYES: None HEENT: None NECK: None RESPIRATORY: None CARDIOVASCULAR: None GASTROINTESTINAL: As above GENITOURINARY: None MUSCULOSKELETAL: None LYMPHATICS: None HEMATOLOGICAL: None PSYCHIATRY: None NEUROLOGICAL: None. Past medical history to include: Patient has snoring but not been diagnosed with LACHO, no arthritis no reflux, recurrent pancreatitis Social history: Patient smoked for about 30 years stopped in 2010. Alcohol rarely. 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 . Physical examination: VITAL SIGNS: 97.7, 60, 18, 117/72, 98% room air GENERAL: BMI 27.1, laying in bed, tired EYES: Pupils equal. Conjunctiva normal. HEENT: External appearance of nose and ears normal, oral cavity grossly normal. NECK: JVD not raised; masses not palpable. HEART: First and second heart sounds are normal; no edema. LUNGS: Respiratory rate normal; clear to auscultation. ABDOMEN: Soft, epigastric tenderness, no guarding or rigidity, liver spleen not palpable, no masses palpable. PSYCH: Alert and oriented x3; mood and affect normal. NEUROLOGICAL: Cranial nerves grossly intact; no facial asymmetry, power and sensation grossly intact. LYMPHATICS: No lymph nodes palpable in the axilla and neck INVESTIGATIONS, reviewed in the clinical context: White count 9.8 hemoglobin 15.9 platelets 251 potassium 4.7 creatinine 1.22 Amylase 43 7, lipase greater than 20,000 EKG tracing personally reviewed by me-normal sinus rhythm KUB-unremarkable Recent endoscopic ultrasound was to [place] reportedly negative Assessment: -Acute recurrent severe pancreatitis -workup in [facility] at [facility]. Plan: Patient's admitted nothing by mouth. Started IV fluids. Lovenox for DVT prophylaxis. We'll start the patient on clear liquids this evening. Advance to full liquids in the morning as tolerated. Repeat labs in the morning. Care was discussed with the patient. Questions answered. Past Medical History Past Medical History: Pneumonia Additional Past Medical History / Comment(s): Recently diagnosed 09/18/19 with bronchial pneumonia, 08/13/18 pancreatitis ( 4 times ), being worked up for LACHO, bilateral knees worn cartlidge-receives injections. History of Any Multi-Drug Resistant Organisms: None Reported Past Surgical History: Orthopedic Surgery Additional Past Surgical History / Comment(s): L nephrectomy (donor), L knee surgery for meniscus tear, L thumb injury with tendon repair, colonoscopy, bilateral eye lasik surgery for vision correction. ERCP Past Anesthesia/Blood Transfusion Reactions: No Reported Reaction Past Psychological History: No Psychological Hx Reported Additional Psychological History / Comment(s): Pt resides with his spouse. He is independent. Smoking Status: Former smoker Past Alcohol Use History: None Reported Additional Past Alcohol Use History / Comment(s): Pt started smoking in 1979 and basically quit in 2010 but will occasionally bum a cigarettewhen out with frie nds. Past Drug Use History: None Reported - Past Family History Brother(s) Family Medical History: Cancer Father Family Medical History: COPD Additional Family Medical History / Comment(s): Father lived to be 89yrs old. He was a smoker. Mother Family Medical History: CVA/TIA Additional Family Medical History / Comment(s): Mother has heart issues and CVA. She is 89yrs old. Medications and Allergies Home Medications Medication Instructions Recorded Confirmed Type Ascorbic Acid [Vitamin C] 500 mg PO DAILY 03/10/20 05/10/20 History Glucosamine/Chondr Zayas A Sod [Osteo 1 tab PO DAILY 03/10/20 05/10/20 History Bi-Flex Caplet] Multivitamins, Thera [Multivitamin 1 tab PO DAILY 03/10/20 05/10/20 History (formulary)] [place]-3 Fatty Acids/Fish Oil [Fish 1 cap PO DAILY 03/10/20 05/10/20 History Oil 1,000 mg Softgel] Allergies Allergy/AdvReac Type Severity Reaction Status Date / Time venom-honey bee Allergy Unknown Verified 05/10/20 07:35 [bee venom (honey bee)] Childhood Physical Exam Vitals: Vital Signs Temp Pulse Pulse Resp BP BP Pulse Ox 05/10/20 05:00 97.7 F 60 18 117/72 98 05/10/20 03:00 98.0 F 58 L 18 125/65 99 05/10/20 02:00 60 18 134/70 99 05/10/20 00:44 98.6 F 73 18 156/72 100 Intake and Output 05/09/20 05/10/20 05/10/20 22:59 06:59 14:59 Other: # Voids 1 Weight 90.764 kg Results CBC & Chem 7: 05/10/20 01:06 05/10/20 01:06 Labs: Abnormal Lab Results - Last 24 Hours (Table) 05/10/20 Range/Units 01:06 BUN 27 H (9-20) mg/dL Glucose 109 H (74-99) mg/dL Amylase 4837 H* (30-110) U/L Lipase >48133 H (23-300) U/L Thrombosis Risk Factor Assmnt - Choose All That Apply Any of the Below Risk Factors Present?: Yes Each Factor Represents 1 point: Age 41-60 years, Obesity (BMI >25) Thrombosis Risk Factor Assessment Total Risk Factor Score: 2 Thrombosis Risk Factor Assessment Level: Low Risk
[2020-05-10] MEDS ORDERED: ACETAMINOPHEN TAB 325 MG TAB PO PRN (21:59)
[2020-05-11] MEDS: PANTOPRAZOLE 40 MG/10 ML VIAL IVP SCH (09:06)
[2020-05-11] MEDS: ENOXAPARIN 40 MG/0.4 ML SYRINGE SQ SCH (09:07)
[2020-05-11] MEDS: LACTATED RINGERS 1,000 ML IV SCH ×2 (09:09→15:47)
[2020-05-11 11:08] LABS: Amylase 1450 U/L (23-121)
[2020-05-11 11:51] VITALS: BP 130/79; PULSE 64; RESP 17; TEMP 97.9
[2020-05-11 13:03] LABS: ALT 19 U/L (4-49); AST 31 U/L (17-59); African American GFR (CKD) >90 (>60 ml/min/1.73 sqM); Albumin 3.9 g/dL (3.5-5.0); Albumin/Globulin Ratio 1.4; Alkaline Phosphatase 82 U/L (38-126); Anion Gap 7 mmol/L; Blood Urea Nitrogen 14 mg/dL (9-20); Carbon Dioxide 28 mmol/L (22-30); Chloride 102 mmol/L (98-107); Globulin 2.8 g/dL; Glucose 78 mg/dL (74-99); Non-African American GFR(CKD) >90 (>60 ml/min/1.73 sqM); Potassium 4.4 mmol/L (3.5-5.1); Sodium 137 mmol/L (137-145); Total Bilirubin 0.8 mg/dL (0.2-1.3); Total Protein 6.7 g/dL (6.3-8.2)
[2020-05-11 13:29] LABS: Amylase 660 U/L (30-110)
--- NOTE | 2020-05-11 16:49 | P.DS ---
Providers Date of admission: 05/10/20 03:01 Expected date of discharge: 05/11/20 Attending physician: Gurdeep Tracy Primary care physician: Benjamin De [facility] Course: Chief Complaint: Abdominal pain History of presenting complaint: This is a very pleasant 54-year-old patient of Dr. de. Patient prior to today, his had 3 bouts of pancreatitis. Patient underwent endoscopic ultrasound and he was to [place] 2 days ago. Grossly no obvious abnormality was found. Patient came home doing okay. Last night patient started having increasing progressive epigastric pain. Progressed to become rather severe. Patient had nausea followed by vomiting. No fever no chills. Became with severe. Decided to come to the ER. Patient found to have acute pancreatitis. With amylase of 4837, lipase greater than 20,000. Started IV fluids. Nothing by mouth given pain medications but to bedrest. Today-doing much better. No nausea vomiting. No abdominal pain. Tolerating full liquids. Pancreatic enzymes have come down significantly. Keen to go home. Patient to go home on full liquid diet advanced to low-fat as tolerated. Follow-up plan with his physicians at [place] Physical examination: VITAL SIGNS: 97.9, 64, 17, 130/79, 97% room air GENERAL: Sitting on bed, comfortable eating EYES: Pupils equal. Conjunctiva normal. HEENT: External appearance of nose and ears normal, oral cavity grossly normal. NECK: JVD not raised; masses not palpable. HEART: First and second heart sounds are normal; no edema. LUNGS: Respiratory rate normal; clear to auscultation. ABDOMEN: Soft, no tenderness, no guarding or rigidity, liver spleen not palpable, no masses palpable. PSYCH: Alert and oriented x3; mood and affect normal. INVESTIGATIONS, reviewed in the clinical context: Potassium 4.4 creatinine 0.96 amylase 660, lipase 1263 Admission testing White count 9.8 hemoglobin 15.9 platelets 251 potassium 4.7 creatinine 1.22 Amylase 43 7, lipase greater than 20,000 EKG tracing personally reviewed by me-normal sinus rhythm KUB-unremarkable Recent endoscopic ultrasound was to [place] reportedly negative Assessment: -Acute severe pancreatitis secondary to endoscopic ultrasound procedure on the pancreas. Disposition: Home Patient Condition at Discharge: Stable Plan - Discharge Summary New Discharge Prescriptions: No Action Multivitamins, Thera [Multivitamin (formulary)] 1 tab PO DAILY Ascorbic Acid [Vitamin C] 500 mg PO DAILY [place]-3 Fatty Acids/Fish Oil [Fish Oil 1,000 mg Softgel] 1 cap PO DAILY Glucosamine/Chondr Zayas A Sod [Osteo Bi-Flex Caplet] 1 tab PO DAILY Discharge Medication List Ascorbic Acid [Vitamin C] 500 mg PO DAILY 03/10/20 [History] Glucosamine/Chondr Zayas A Sod [Osteo Bi-Flex Caplet] 1 tab PO DAILY 03/10/20 [History] Multivitamins, Thera [Multivitamin (formulary)] 1 tab PO DAILY 03/10/20 [History] [place]-3 Fatty Acids/Fish Oil [Fish Oil 1,000 mg Softgel] 1 cap PO DAILY 03/10/20 [History] Follow up Appointment(s)/Referral(s): Sherry Drummond dr [Other] - 1 Week Benjamin De MD [REFERRING] - 1-2 days Activity/Diet/Wound Care/Special Instructions: low fat - full liqiuds advance as tolerated
== END 2020-05-11 17:19 | disposition home or self-care (01) | DRG 440 ==
LOC: EC 00:26 → 6NMEDSUR 03:01
PROVIDERS: ADMIT Hospitalist; ATTEND Hospitalist
DX: K85.90 Acute pancreatitis without necrosis or infection, unspecified (principal); G47.33 Obstructive sleep apnea (adult) (pediatric); E66.9 Obesity, unspecified; Z68.27 Body mass index [BMI] 27.0-27.9, adult; Z79.899 Other long term (current) drug therapy; Z90.5 Acquired absence of kidney; Z98.890 Other specified postprocedural states; Z87.01 Personal history of pneumonia (recurrent); Z87.891 Personal history of nicotine dependence; Z87.828 Personal history of other (healed) physical injury and trauma; Z91.030 Bee allergy status; Z82.5 Family history of asthma and other chronic lower respiratory diseases; Z82.3 Family history of stroke; Z80.9 Family history of malignant neoplasm, unspecified
CPT/HCPCS: 36415; 74018; 80053; 82150; 83605; 83690; 85025; 96361; 96374; 96375; 99285

== ENCOUNTER 2020-08-16 10:48 | Inpatient (IN) | payer BC ==
[2020-08-16] MEDS ORDERED: SODIUM CHLORIDE 0.9% 1,000 ML IV ONE (11:07)
--- NOTE | 2020-08-16 11:10 | ED ---
General Adult HPI - General Chief complaint: Abdominal Pain Stated complaint: Abd Pain Time Seen by Provider: 08/16/20 11:02 Source: patient, RN notes reviewed, old records reviewed Mode of arrival: ambulatory Limitations: no limitations - History of Present Illness Initial comments: 54-year-old male patient to ED for evaluation. Patient has history of pa ncreatitis. Patient reports that he does not drink alcohol per the current thought why he is having recurrent pancreatitis is that he has sludge in gallbladder which occasionally will migrate down. Patient is being followed by [facility] and is scheduled to have a cholecystectomy performed in early August. For the last 2 days he has been having some very mild epigastric discomfort. Patient reports that is not severe however he states he normally waits too long and by the time he presents to hospital he is in significant distress. He requests to have his lipase checked. His symptoms are similar to his early pancreatitis of the past. Systemic: Pt denies fatigue, fever/chills, rash. Pt denies weakness, night sweats, weight loss. Neuro: Pt denies headache, visual disturbances, syncope or pre-syncope. HEENT: Pt denies ocular discharge or irritation, otalgia, rhinorrhea, ph aryngitis or notable lymphadenopathy. Cardiopulmonary: Pt denies chest pain, SOB, heart palpitations, dyspnea on exertion. Abdominal/GI: Pt denies n/v/d. : Pt denies dysuria, burning w/ urination, frequency/urgency. Denies new onset urinary or bowel incontinence. MSK: Pt denies myalgia, loss of strength or function in extremities. Neuro: Pt denies new onset weakness, paresthesias. - Related Data Home Medications Medication Instructions Recorded Confirmed Ascorbic Acid [Vitamin C] 500 mg PO DAILY 03/10/20 08/16/20 Glucosamine/Chondr Zayas A Sod [Osteo 1 tab PO DAILY 03/10/20 08/16/20 Bi-Flex Caplet] Multivitamins, Thera [Multivitamin 1 tab PO DAILY 03/10/20 08/16/20 (formulary)] [place]-3 Fatty Acids/Fish Oil [Fish 1 cap PO DAILY 03/10/20 08/16/20 Oil 1,000 mg Softgel] Acetaminophen [Tylenol] 500 mg PO Q4-6H PRN 08/16/20 08/16/20 Cholecalciferol [Vitamin D3 (25 1,000 unit PO DAILY 08/16/20 08/16/20 Mcg = 1000 Iu)] Allergies Allergy/AdvReac Type Severity Reaction Status Date / Time venom-honey bee Allergy Unknown Verified 08/16/20 12:37 [bee venom (honey bee)] Childhood Review of Systems ROS Statement: Those systems with pertinent positive or pertinent negative responses have been documented in the HPI. ROS Other: All systems not noted in ROS Statement are negative. Past Medical History Past Medical History: Pneumonia Additional Past Medical History / Comment(s): Recently diagnosed 09/18/19 with bronchial pneumonia, 08/13/18 pancreatitis ( 4 times ), being worked up for LACHO, bilateral knees worn cartlidge-receives injections. History of Any Multi-Drug Resistant Organisms: None Reported Past Surgical History: Orthopedic Surgery Additional Past Surgical History / Comment(s): L nephrectomy (donor), L knee surgery for meniscus tear, L thumb injury with tendon repair, colonoscopy, bilateral eye lasik surgery for vision correction. ERCP Past Anesthesia/Blood Transfusion Reactions: No Reported Reaction Past Psychological History: No Psychological Hx Reported Smoking Status: Former smoker Past Alcohol Use History: None Reported Past Drug Use History: None Reported - Past Family History Brother(s) Family Medical History: Cancer Father Family Medical History: COPD Additional Family Medical History / Comment(s): Father lived to be 89yrs old. He was a smoker. Mother Family Medical History: CVA/TIA Additional Family Medical History / Comment(s): Mother has heart issues and CVA. She is 89yrs old. General Exam - General Exam Comments Initial Comments: Constitutional: NAD, AOX3, Pt has pleasant affect. HEENT: NC/AT, trachea midline, neck supple, no lymphadenopathy. External ears appear normal, without discharge. Mucous membranes moist. Eyes PERRLA, EOM intact. There is no scleral icterus. No pallor noted. Cardiopulmonary: RRR, no murmurs, rubs or gallops, no JVD noted. Lungs CTAB in anterior and posterior blackman. No peripheral edema. Abdominal exam: Abdomen soft and non-distended. Abdomen mildly tender to palpation in epigastric region. No hepatosplenomegaly. No ecchymosis Neuro: CN II-XII grossly intact. No nuchal rigidity. MSK: Full active ROM in upper and lower extremities, 5/5 stregnth. Limitations: no limitations Course Vital Signs 08/16/20 10:58 Temperature 98.6 F Pulse Rate 76 Respiratory 18 Rate Blood Pressure 159/88 O2 Sat by Pulse 98 Oximetry Medical Decision Making - Medical Decision Making 54-year-old male patient to ED for evaluation of very mild epigastric discomfort. Symptoms are consistent patient's pancreatitis in the past. Patient denies alcohol user. Vital signs stable, afebrile. Physical exam did not epigastric tenderness. Laboratory investigations confirmed pancreatitis. KUB displayed mild stool in the right side. Patient nothing by mouth will be admitted , discomfort is minimal this time. Case discussed with Dr. Long. Admitting physician Dr. Kowalski accepts case. - Lab Data Result diagrams: 08/16/20 11:12 08/16/20 11:12 Lab Results 08/16/20 08/16/20 08/16/20 Range/Units 11:12 11:12 11:30 WBC 11.7 H (3.8-10.6) k/uL RBC 5.37 (4.30-5.90) m/uL Hgb 16.8 (13.0-17.5) gm/dL Hct 47.9 (39.0-53.0) % MCV 89.1 (80.0-100.0) fL MCH 31.3 (25.0-35.0) pg MCHC 35.2 (31.0-37.0) g/dL RDW 12.4 (11.5-15.5) % Plt Count 265 (150-450) k/uL MPV 6.7 Neutrophils % 76 % Lymphocytes % 11 % Monocytes % 6 % Eosinophils % 4 % Basophils % 1 % Neutrophils # 8.9 H (1.3-7.7) k/uL Lymphocytes # 1.3 (1.0-4.8) k/uL Monocytes # 0.7 (0-1.0) k/uL Eosinophils # 0.5 (0-0.7) k/uL Basophils # 0.1 (0-0.2) k/uL Sodium 138 (137-145) mmol/L Potassium 4.1 (3.5-5.1) mmol/L Chloride 103 (98-107) mmol/L Carbon Dioxide 27 (22-30) mmol/L Anion Gap 8 mmol/L BUN 19 (9-20) mg/dL Creatinine 1.02 (0.66-1.25) mg/dL Est GFR (CKD-EPI)AfAm >90 (>60 ml/min/1.73 sqM) Est GFR (CKD-EPI)NonAf 84 (>60 ml/min/1.73 sqM) Glucose 101 H (74-99) mg/dL Calcium 10.0 (8.4-10.2) mg/dL Total Bilirubin 0.6 (0.2-1.3) mg/dL AST 35 (17-59) U/L ALT 30 (4-49) U/L Alkaline Phosphatase 98 (38-126) U/L Total Protein 8.0 (6.3-8.2) g/dL Albumin 4.6 (3.5-5.0) g/dL Amylase 3579 H* (30-110) U/L Lipase >93550 H (23-300) U/L Urine Color Light Yellow Urine Appearance Clear (Clear) Urine pH 6.0 (5.0-8.0) Ur Specific [place] 1.011 (1.001-1.035) Urine Protein Negative (Negative) Urine Glucose (UA) Negative (Negative) Urine Ketones Negative (Negative) Urine Blood Negative (Negative) Urine Nitrite Negative (Negative) Urine Bilirubin Negative (Negative) Urine Urobilinogen <2.0 (<2.0) mg/dL Ur Leukocyte Esterase Negative (Negative) Disposition Clinical Impression: Pancreatitis Disposition: ADMITTED IP TO THIS [facility] Condition: Serious Is patient prescribed a controlled substance at d/c from ED?: No Referrals: Benjamin De MD [Primary Care Provider] - 1-2 days
[2020-08-16 11:22] LABS: Basophils # (A) 0.1 k/uL (0-0.2); Basophils % (A) 1 %; Eosinophils # (A) 0.5 k/uL (0-0.7); Eosinophils % (A) 4 %; HCT 47.9 % (39.0-53.0); HGB 16.8 gm/dL (13.0-17.5); Lymphocytes # (A) 1.3 k/uL (1.0-4.8); Lymphocytes % (A) 11 %; MCH 31.3 pg (25.0-35.0); MCHC 35.2 g/dL (31.0-37.0); MCV 89.1 fL (80.0-100.0); Mean Platelet Volume 6.7; Monocytes # (A) 0.7 k/uL (0-1.0); Monocytes % (A) 6 %; Neutrophils # (A) 8.9 k/uL (1.3-7.7); Neutrophils % (A) 76 %; Platelet Count 265 k/uL (150-450); RBC 5.37 m/uL (4.30-5.90); RDW 12.4 % (11.5-15.5); WBC 11.7 k/uL (3.8-10.6)
--- NOTE | 2020-08-16 11:31 | XR ---
EXAMINATION TYPE: XR KUB DATE OF EXAM: 08/16/2020 Comparison: 05/10/2020 Clinical History: 54-year-old male abdominal pain Findings: Lung bases are clear. No evidence for free intraperitoneal air. No dilated small bowel or fluid levels. Surgical clip noted in the left paramedian epigastric region. Mild stool within the right side of the abdomen. Small pelvic phleboliths redemonstrated. Impression: No evidence for free air or bowel obstruction. Mild stool within the right side of the abdomen.
[2020-08-16 11:34] LABS: ALT 30 U/L (4-49); AST 35 U/L (17-59); African American GFR (CKD) >90 (>60 ml/min/1.73 sqM); Albumin 4.6 g/dL (3.5-5.0); Alkaline Phosphatase 98 U/L (38-126); Anion Gap 8 mmol/L; Blood Urea Nitrogen 19 mg/dL (9-20); Carbon Dioxide 27 mmol/L (22-30); Chloride 103 mmol/L (98-107); Glucose 101 mg/dL (74-99); Non-African American GFR(CKD) 84 (>60 ml/min/1.73 sqM); Potassium 4.1 mmol/L (3.5-5.1); Sodium 138 mmol/L (137-145); Total Bilirubin 0.6 mg/dL (0.2-1.3)
[2020-08-16 11:36] LABS: Appearance,Urine Clear (Clear); Bilirubin,Urine Negative (Negative); Blood,Urine Negative (Negative); Color,Urine Light Yellow; Glucose,Urine (UA) Negative (Negative); Ketones,Urine Negative (Negative); Leukocyte Esterase,Urine Negative (Negative); Nitrite,Urine Negative (Negative); Protein,Urine Negative (Negative); Specific Gravity,Urine 1.011 (1.001-1.035); Urobilinogen,Urine <2.0 mg/dL (<2.0)
[2020-08-16 12:27] LABS: Amylase 3579 U/L (30-110)
[2020-08-16 12:39] LABS: Lipase >20000 U/L (23-300)
[2020-08-16] MEDS ORDERED: SODIUM CHLORIDE 0.9% 500 ML 500 ML IV ONE (12:43)
[2020-08-16] MEDS ORDERED: ONDANSETRON 4 MG/2 ML VIAL IVP PRN (12:45)
[2020-08-16] MEDS ORDERED: NALOXONE 0.4 MG/ML 1 ML VIAL IV PRN (12:45)
[2020-08-16] MEDS: SODIUM CHLORIDE 0.9% 1,000 ML IV SCH ×2 (12:54→16:36)
[2020-08-16] MEDS ORDERED: MORPHINE SULFATE 4 MG/ML SYRINGE IVP STA (12:56)
--- NOTE | 2020-08-16 13:47 | US ---
EXAMINATION TYPE: US gallbladder DATE OF EXAM: 08/16/2020 COMPARISON: 03/10/2020 CLINICAL HISTORY: 54-year-old male with Pancreatitis, pt states scheduled for GB removal Aug 28 TECHNIQUE: Multiple sonographic images of the right upper quadrant are obtained. FINDINGS: EXAM MEASUREMENTS: Liver Length: 18.0 cm Gallbladder Wall: 0.2 cm CBD: 0.4 cm Right Kidney: 12.0 x 5.1 x 5.2 cm Pancreas: Obscured by bowel gas Liver: Mildly enlarged, slightly heterogeneous appearance may be on a technical basis. Heterogeneous Gallbladder: There may be some layering sludge. No abnormal distention, wall thickening, pericholecy stic fluid, or shadowing calculi. Evidence for sonographic Robles's sign: No CBD: wnl Right Kidney: wnl IMPRESSION: 1. There may be some gallbladder sludge. No ancillary findings of acute or chronic cholecystitis. 2. Mild hepatomegaly at 18.0 cm. 3. No biliary ductal dilatation. 4. The pancreas is obscured and not assessed.
--- NOTE | 2020-08-16 14:41 | P.HPIM ---
History of Present Illness H&P Date: 08/16/20 Chief Complaint: CC: Abdominal pain found to have acute pancreatitis Patient is a 54-year-old male with a past medical history of recurrent pancreatitis who presents to the ED with abdominal pain consistent with his previous episodes of pancreatitis. Patient states that about a week ago he had Ag's and over the holidays he may have been eating food that was high in fat. Patient denies any alcohol. He states that he was worked up at [facility] for the etiology of his pancreatitis. He was told that due to gallbladder sludge may be causing him to have these recurrent episodes of pancreatitis. He states that he is scheduled for a cholecystectomy on August 27 at [facility]. Patient states that he would like to get over this episode of acute pancreatitis and then follow-up at [facility] for cholecystectomy. In the ED patient's amylase and lipase were elevated. Review of Systems 10 ROS reviewed and are negative except as noted in HPI Past Medical History Past Medical History: Pneumonia Additional Past Medical History / Comment(s): Recently diagnosed 09/18/19 with bronchial pneumonia, 08/13/18 pancreatitis ( 4 times ), being worked up for LACHO, bilateral knees worn cartlidge-receives injections. History of Any Multi-Drug Resistant Organisms: None Reported Past Surgical History: Orthopedic Surgery Additional Past Surgical History / Comment(s): L nephrectomy (donor), L knee surgery for meniscus tear, L thumb injury with tendon repair, colonoscopy, bilateral eye lasik surgery for vision correction. ERCP Past Anesthesia/Blood Transfusion Reactions: No Reported Reaction Past Psychological History: No Psychological Hx Reported Smoking Status: Former smoker Past Alcohol Use History: None Reported Past Drug Use History: None Reported - Past Family History Brother(s) Family Medical History: Cancer Father Family Medical History: COPD Additional Family Medical History / Comment(s): Father lived to be 89yrs old. He was a smoker. Mother Family Medical History: CVA/TIA Additional Family Medical History / Comment(s): Mother has heart issues and CVA. She is 89yrs old. Medications and Allergies Home Medications Medication Instructions Recorded Confirmed Type Ascorbic Acid [Vitamin C] 500 mg PO DAILY 03/10/20 08/16/20 History Glucosamine/Chondr Zayas A Sod [Osteo 1 tab PO DAILY 03/10/20 08/16/20 History Bi-Flex Caplet] Multivitamins, Thera [Multivitamin 1 tab PO DAILY 03/10/20 08/16/20 History (formulary)] [place]-3 Fatty Acids/Fish Oil [Fish 1 cap PO DAILY 03/10/20 08/16/20 History Oil 1,000 mg Softgel] Acetaminophen [Tylenol] 500 mg PO Q4-6H PRN 08/16/20 08/16/20 History Cholecalciferol [Vitamin D3 (25 1,000 unit PO DAILY 08/16/20 08/16/20 History Mcg = 1000 Iu)] Allergies Allergy/AdvReac Type Severity Reaction Status Date / Time venom-honey bee Allergy Unknown Verified 08/16/20 12:37 [bee venom (honey bee)] Childhood Physical Exam Osteopathic Statement: *. No significant issues noted on an osteopathic structural exam other than those noted in the History and Physical/Consult. Vitals: Vital Signs Temp Pulse Resp BP Pulse Ox 08/16/20 10:58 98.6 F 76 18 159/88 98 Intake and Output 08/15/20 08/16/20 08/16/20 22:59 06:59 14:59 Other: Weight 90.718 kg General: [Alert and oriented, well nourished, no acute distress]. Eye: [PERRL, EOMI, normal conjunctiva]. HENT: [Normocephalic, clear tympanic membranes, normal hearing, moist oral mucosa, no scleral icterus, no sinus tenderness]. Neck: [Supple, non-tender, no carotid bruits, no JVD, no lymphadenopathy]. Lungs: [Clear to auscultation and percussion, non-labored respiration]. Heart: [Normal rate, regular rhythm, no murmur, gallop or edema]. Abdomen: [Soft, tenderness to palpate in the epigastric area, non-distended, normal bowel sounds, no masses]. Musculoskeletal: [Normal range of motion and strength, no tenderness or swelling]. Skin: [Skin is warm, dry and pink, no rashes or lesions]. Neurologic: [Awake, alert, and oriented X3, CN II-XII intact]. Psychiatric: [Cooperative, appropriate mood and affect]. Results CBC & Chem 7: 08/16/20 11:12 08/16/20 11:12 Labs: Abnormal Lab Results - Last 24 Hours (Table) 08/16/20 08/16/20 Range/Units 11:12 11:12 WBC 11.7 H (3.8-10.6) k/uL Neutrophils # 8.9 H (1.3-7.7) k/uL Glucose 101 H (74-99) mg/dL Amylase 3579 H* (30-110) U/L Lipase >99620 H (23-300) U/L Assessment and Plan Assessment: Acute recurrent pancreatitis likely due to gallbladder sludge -Nothing by mouth -Aggressive IV fluids -Pain control -Right upper quadrant ultrasound shows gallbladder sludge and no bile duct dilation -Patient states he is scheduled for cholecystectomy at [facility] on August 27 and he would like to get this procedure done over there -Trend lipase daily CODE STATUS:full code DVT prophylaxis: mechanical Discussed with: Patient, ER, rn Anticipated length of stay < than [address]: home A total of 75 minutes was spent on the care of this complex patient more than 50% of the time was spent in counseling and care coordination.
[2020-08-16] MEDS: MORPHINE SULFATE 4 MG/ML SYRINGE IV PRN ×2 (16:34→23:37)
[2020-08-17] MEDS: SODIUM CHLORIDE 0.9% 1,000 ML IV SCH (01:38)
[2020-08-17 06:37] LABS: Basophils # (A) 0.1 k/uL (0-0.2); Basophils % (A) 1 %; Eosinophils # (A) 0.5 k/uL (0-0.7); Eosinophils % (A) 8 %; HCT 43.6 % (39.0-53.0); HGB 14.8 gm/dL (13.0-17.5); Lymphocytes # (A) 1.6 k/uL (1.0-4.8); Lymphocytes % (A) 24 %; MCH 31.2 pg (25.0-35.0); MCHC 34.1 g/dL (31.0-37.0); MCV 91.6 fL (80.0-100.0); Mean Platelet Volume 6.8; Monocytes # (A) 0.4 k/uL (0-1.0); Monocytes % (A) 6 %; Neutrophils # (A) 3.9 k/uL (1.3-7.7); Neutrophils % (A) 59 %; Platelet Count 223 k/uL (150-450); RBC 4.76 m/uL (4.30-5.90); RDW 12.4 % (11.5-15.5); WBC 6.6 k/uL (3.8-10.6)
[2020-08-17 07:32] VITALS: RESP 17
[2020-08-17] MEDS ORDERED: ACETAMINOPHEN TAB 325 MG TAB PO PRN (08:01)
[2020-08-17 10:08] LABS: African American GFR (CKD) 99.8 (60.0-200.0); Albumin 3.9 g/dL (3.80-4.90); Albumin/Globulin Ratio 1.77 (1.60-3.17); Anion Gap 3.7 mmol/L (4.00-12.00); Calcium 8.5 mg/dL (8.7-10.3); Carbon Dioxide 29.3 mmol/L (21.6-31.8); Globulin 2.2 g/dL (1.6-3.3); Non-African American GFR(CKD) 86.2 (60.0-200.0); Potassium 4.3 mmol/L (3.5-5.5); Total Bilirubin 0.8 mg/dL (0.2-1.2); Total Protein 6.1 g/dL (6.2-8.2)
[2020-08-17 14:35] VITALS: BP 129/80; PULSE 65; TEMP 97.8
--- NOTE | 2020-08-17 14:51 | P.DS ---
Providers Date of admission: 08/16/20 12:58 Expected date of discharge: 08/17/20 Attending physician: Kimberly Wang DO Primary care physician: Benjamin De MD Hospital Course: Patient is 54-year-old male with a PMH of recurrent pancreatitis who had presented to the emergency room with complaints of epigastric abdominal pain, consistent with his previous episodes of pancreatitis. The patient had reported that he had not been compliant to his dietary restrictions and had been consuming large amounts of fatty food over the week prior to presentation. The patient also reported that he has been following at [facility] for his pancreatitis, which is believed to be secondary to biliary sludge, for which he is scheduled to undergo cholecystectomy on August 28/2021. The patient was admitted to the medicine service and was seen on the day of discharge at the bedside. He reported complete resolution of his pain, rated 0 out of 10 at the time of interview. The patient was also started on a full liquid diet which was tolerated very well with no pain. The patient is eager to be discharged and noted that he is going to adhere to his dietary restrictions until his cholecystectomy at [facility]. Strongly advised the patient on the importance of his follow-up and the dangers of recurrent episodes of pancreatitis. The patient's lipase improved significantly from greater than 20,000 to 1347. The patient verbalized understanding. The patient is eager, and ready for discharge to home. Physical Examination General: Non-toxic, in no acute distress, appears stated age, normal weight HEENT: NC/AT, anicteric sclerae, moist conjunctiva, no lid-lag, PERRLA Cardiovascular: S1/S2 wnl, no murmurs, rubs, or gallops Lungs: Clear to auscultation, normal respiratory effort, no accessory muscle use Abdominal: Soft, non-tender, non-distended, no guarding, rebound, or rigidity Skin: Warm, dry Extremities: No edema or contractures Psychiatric: Alert and oriented to person, place and time, appropriate affect Neuro: CN II-XII grossly intact, Strength 5/5 in all 4 extremities, Speech intact, Sensation to light touch grossly intact throughout Discharge diagnosis: Acute pancreatitis; leukocytosis, resolved A total of 35 minutes of time were spent preparing this complex discharge summary. Patient Condition at Discharge: Stable Plan - Discharge Summary Discharge Rx Participant: No New Discharge Prescriptions: Continue Multivitamins, Thera [Multivitamin (formulary)] 1 tab PO DAILY Ascorbic Acid [Vitamin C] 500 mg PO DAILY [place]-3 Fatty Acids/Fish Oil [Fish Oil 1,000 mg Softgel] 1 cap PO DAILY Glucosamine/Chondr Zayas A Sod [Osteo Bi-Flex Caplet] 1 tab PO DAILY Cholecalciferol [Vitamin D3 (25 Mcg = 1000 Iu)] 1,000 unit PO DAILY Acetaminophen [Tylenol] 500 mg PO Q4-6H PRN PRN Reason: Pain Or Fever > 100.5 Discharge Medication List Ascorbic Acid [Vitamin C] 500 mg PO DAILY 03/10/20 [History] Glucosamine/Chondr Zayas A Sod [Osteo Bi-Flex Caplet] 1 tab PO DAILY 03/10/20 [History] Multivitamins, Thera [Multivitamin (formulary)] 1 tab PO DAILY 03/10/20 [History] [place]-3 Fatty Acids/Fish Oil [Fish Oil 1,000 mg Softgel] 1 cap PO DAILY 03/10/20 [History] Acetaminophen [Tylenol] 500 mg PO Q4-6H PRN 08/16/20 [History] Cholecalciferol [Vitamin D3 (25 Mcg = 1000 Iu)] 1,000 unit PO DAILY 08/16/20 [History] Follow up Appointment(s)/Referral(s): Benjamin De MD [Primary Care Provider] - 1-2 days Discharge Disposition: HOME SELF-CARE
== END 2020-08-17 16:05 | disposition home or self-care (01) | DRG 440 ==
LOC: EC 10:48 → 4SSUR 12:58
PROVIDERS: ADMIT Internal Medicine; ATTEND Internal Medicine
DX: K85.90 Acute pancreatitis without necrosis or infection, unspecified (principal); K86.1 Other chronic pancreatitis; K82.8 Other specified diseases of gallbladder; Z90.5 Acquired absence of kidney; Z52.4 Kidney donor; Z91.030 Bee allergy status; Z87.01 Personal history of pneumonia (recurrent); Z87.891 Personal history of nicotine dependence; Z82.5 Family history of asthma and other chronic lower respiratory diseases; Z82.3 Family history of stroke; Z82.49 Family history of ischemic heart disease and other diseases of the circulatory system; Z98.890 Other specified postprocedural states
CPT/HCPCS: 36415; 74018; 76705; 80053; 81003; 82150; 83690; 85025; 96361; 96374; 99285

== ENCOUNTER 2021-07-17 19:43 | Observation (INO) | payer BC ==
[2021-07-17] MEDS ORDERED: PANTOPRAZOLE 40 MG/10 ML VIAL IVP STA (23:10)
[2021-07-17] MEDS ORDERED: SODIUM CHLORIDE 0.9% 1,000 ML IV STA ×2 (23:10)
[2021-07-17] MEDS ORDERED: MORPHINE SULFATE 4 MG/ML SYRINGE IV STA (23:16)
[2021-07-17] MEDS ORDERED: ONDANSETRON 4 MG/2 ML VIAL IVP STA (23:16)
[2021-07-17 23:58] LABS: Basophils # (A) 0.1 k/uL (0-0.2); Basophils % (A) 1 %; Eosinophils # (A) 0.6 k/uL (0-0.7); Eosinophils % (A) 6 %; HCT 45.2 % (39.0-53.0); HGB 16.1 gm/dL (13.0-17.5); Lymphocytes # (A) 1.5 k/uL (1.0-4.8); Lymphocytes % (A) 16 %; MCH 31.3 pg (25.0-35.0); MCHC 35.7 g/dL (31.0-37.0); MCV 87.7 fL (80.0-100.0); Mean Platelet Volume 7.3; Monocytes # (A) 0.6 k/uL (0-1.0); Monocytes % (A) 6 %; Neutrophils # (A) 6.8 k/uL (1.3-7.7); Neutrophils % (A) 69 %; Platelet Count 240 k/uL (150-450); RBC 5.15 m/uL (4.30-5.90); WBC 9.8 k/uL (3.8-10.6)
--- NOTE | 2021-07-17 23:58 | ED ---
Abdominal Pain HPI - General Chief Complaint: Abdominal Pain Stated Complaint: Abdominal Pain Time Seen by Provider: 07/17/21 22:53 Source: patient, RN notes reviewed, old records reviewed Mode of arrival: ambulatory Limitations: no limitations - History of Present Illness Initial Comments: This is a 55-year-old male DF for evaluation. Patient has a for evaluation of nausea vomiting abdominal pain. History of pancreatitis has had his gallbladder removed with sudden [place] contacts. Patient's pain is severe in nature with nausea vomiting. No other complaints no fevers. Denies drugs or alcohol. MD Complaint: abdominal pain -: hour(s) Location: epigastric Radiation: epigastric Migration to: bilateral flank Severity: severe Severity scale (1-10): 10 Consistency: constant Improves With: nothing Worsens With: nothing Associated Symptoms: nausea, vomiting Treatments Prior to Arrival: NSAIDs - Related Data Home Medications Medication Instructions Recorded Confirmed Ascorbic Acid [Vitamin C] 500 mg PO DAILY 03/10/20 08/16/20 Glucosamine/Chondr Zayas A Sod [Osteo 1 tab PO DAILY 03/10/20 08/16/20 Bi-Flex Caplet] Multivitamins, Thera [Multivitamin 1 tab PO DAILY 03/10/20 08/16/20 (formulary)] [place]-3 Fatty Acids/Fish Oil [Fish 1 cap PO DAILY 03/10/20 08/16/20 Oil 1,000 mg Softgel] Acetaminophen [Tylenol] 500 mg PO Q4-6H PRN 08/16/20 08/16/20 Cholecalciferol [Vitamin D3 (25 1,000 unit PO DAILY 08/16/20 08/16/20 Mcg = 1000 Iu)] Allergies Allergy/AdvReac Type Severity Reaction Status Date / Time venom-honey bee Allergy Unknown Verified 07/17/21 20:13 [bee venom (honey bee)] Childhood Review of Systems ROS Statement: Those systems with pertinent positive or pertinent negative responses have been documented in the HPI. ROS Other: All systems not noted in ROS Statement are negative. Past Medical History Past Medical History: Pneumonia Additional Past Medical History / Comment(s): bronchial pneumonia, 08/13/18 pancreatitis ( 4 times ), being worked up for LACHO, bilateral knees worn cartlidge-receives injections. History of Any Multi-Drug Resistant Organisms: None Reported Past Surgical History: Orthopedic Surgery Additional Past Surgical History / Comment(s): L nephrectomy (donor), L knee surgery for meniscus tear, L thumb injury with tendon repair, colonoscopy, bilateral eye lasik surgery for vision correction. ERCP Past Anesthesia/Blood Transfusion Reactions: No Reported Reaction Past Psychological History: No Psychological Hx Reported Smoking Status: Former smoker Past Alcohol Use History: None Reported Past Drug Use History: None Reported - Past Family History Father Family Medical History: COPD Additional Family Medical History / Comment(s): Father lived to be 89yrs old. He was a smoker. Mother Family Medical History: CVA/TIA Additional Family Medical History / Comment(s): Mother has heart issues and CVA. She is 89yrs old. General Exam Limitations: no limitations General appearance: alert, in no apparent distress, anxious Head exam: Present: atraumatic, normocephalic, normal inspection Eye exam: Present: normal appearance, PERRL, EOMI. Absent: scleral icterus, conjunctival injection, periorbital swelling ENT exam: Present: normal exam, mucous membranes moist Neck exam: Present: normal inspection. Absent: tenderness, meningismus, lymphadenopathy Respiratory exam: Present: normal lung sounds bilaterally. Absent: respiratory distress, wheezes, rales, rhonchi, stridor Cardiovascular Exam: Present: regular rate, normal rhythm, normal heart sounds. Absent: systolic murmur, diastolic murmur, rubs, gallop, clicks GI/Abdominal exam: Present: soft, tenderness (Severe epigastric tenderness), normal bowel sounds. Absent: distended, guarding, rebound, rigid Extremities exam: Present: normal inspection, full ROM, normal capillary refill. Absent: tenderness, pedal edema, joint swelling, calf tenderness Back exam: Present: normal inspection Neurological exam: Present: alert, oriented X3, CN II-XII intact Psychiatric exam: Present: normal affect, normal mood Skin exam: Present: warm, dry, intact, normal color. Absent: rash Course Vital Signs 07/17/21 07/18/21 07/18/21 20:09 00:42 02:47 Temperature 98.5 F Pulse Rate 85 70 78 Respiratory 20 18 17 Rate Blood Pressure 146/84 179/105 142/72 O2 Sat by Pulse 99 98 98 Oximetry - Reevaluation(s) Reevaluation #1: 07/18/21 03:50 Record is reviewed Reevaluation #2: 07/18/21 03:50 symptoms are improved although still with nausea and recurrent pain Reevaluation #3: 07/18/21 03:51 Patient is informed of results and questions have been answered - Consultations Consultation #1: Spoke with Sound Dr. Almazan agreed to admit this patient Medical Decision Making - Medical Decision Making 55 male to the emergency department was severe recurrent pancreatitis. Patient will be admitted for abdominal pain, pain control and IV hydration and nothing by mouth status - Lab Data Result diagrams: 07/17/21 23:29 07/17/21 23:29 Lab Results 07/17/21 07/17/21 Range/Units 23:29 23:29 WBC 9.8 (3.8-10.6) k/uL RBC 5.15 (4.30-5.90) m/uL Hgb 16.1 (13.0-17.5) gm/dL Hct 45.2 (39.0-53.0) % MCV 87.7 (80.0-100.0) fL MCH 31.3 (25.0-35.0) pg MCHC 35.7 (31.0-37.0) g/dL RDW 12.0 (11.5-15.5) % Plt Count 240 (150-450) k/uL MPV 7.3 Neutrophils % 69 % Lymphocytes % 16 % Monocytes % 6 % Eosinophils % 6 % Basophils % 1 % Neutrophils # 6.8 (1.3-7.7) k/uL Lymphocytes # 1.5 (1.0-4.8) k/uL Monocytes # 0.6 (0-1.0) k/uL Eosinophils # 0.6 (0-0.7) k/uL Basophils # 0.1 (0-0.2) k/uL Sodium 135 L (137-145) mmol/L Potassium 4.2 (3.5-5.1) mmol/L Chloride 103 (98-107) mmol/L Carbon Dioxide 25 (22-30) mmol/L Anion Gap 7 mmol/L BUN 17 (9-20) mg/dL Creatinine 0.91 (0.66-1.25) mg/dL Est GFR (CKD-EPI)AfAm >90 (>60 ml/min/1.73 sqM) Est GFR (CKD-EPI)NonAf >90 (>60 ml/min/1.73 sqM) Glucose 91 (74-99) mg/dL Calcium 9.2 (8.4-10.2) mg/dL Total Bilirubin 0.8 (0.2-1.3) mg/dL AST 38 (17-59) U/L ALT 29 (4-49) U/L Alkaline Phosphatase 95 (38-126) U/L Total Protein 7.6 (6.3-8.2) g/dL Albumin 4.3 (3.5-5.0) g/dL Amylase 2299 H* (30-110) U/L Lipase 7725 H (23-300) U/L Serum Alcohol <10 mg/dL Disposition Clinical Impression: Pancreatitis, Acute pancreatitis, Abdominal pain Disposition: ADMITTED IP TO THIS HOSP Condition: Good Is patient prescribed a controlled substance at d/c from ED?: No
[2021-07-18 00:08] LABS: ALT 29 U/L (4-49); AST 38 U/L (17-59); African American GFR (CKD) >90 (>60 ml/min/1.73 sqM); Albumin 4.3 g/dL (3.5-5.0); Alcohol <10 mg/dL; Alkaline Phosphatase 95 U/L (38-126); Anion Gap 7 mmol/L; Blood Urea Nitrogen 17 mg/dL (9-20); Calcium 9.2 mg/dL (8.4-10.2); Carbon Dioxide 25 mmol/L (22-30); Chloride 103 mmol/L (98-107); Glucose 91 mg/dL (74-99); Non-African American GFR(CKD) >90 (>60 ml/min/1.73 sqM); Potassium 4.2 mmol/L (3.5-5.1); Sodium 135 mmol/L (137-145); Total Bilirubin 0.8 mg/dL (0.2-1.3); Total Protein 7.6 g/dL (6.3-8.2)
[2021-07-18] MEDS ORDERED: HYDROmorphone 1 MG/ML 1 ML SYRINGE IVP STA ×2 (00:37→01:50)
[2021-07-18 00:43] LABS: Amylase 2299 U/L (30-110)
[2021-07-18 01:06] LABS: Lipase 7725 U/L (23-300)
[2021-07-18] MEDS ORDERED: NALOXONE 0.4 MG/ML 1 ML VIAL IV PRN (01:54)
[2021-07-18] MEDS ORDERED: HYDROmorphone 1 MG/ML 1 ML SYRINGE IVP PRN (01:54)
[2021-07-18] MEDS ORDERED: LORazepam 2 MG/ML INJ IV PRN (01:54)
[2021-07-18] MEDS ORDERED: ONDANSETRON 4 MG/2 ML VIAL IVP PRN (01:54)
[2021-07-18] MEDS: SODIUM CHLORIDE 0.9% 1,000 ML IV SCH ×3 (02:00→16:24)
--- NOTE | 2021-07-18 05:01 | P.HPIM ---
History of Present Illness H&P Date: 07/18/21 Chief Complaint: Abdominal pain 55-year-old male with history of gallbladder sludge status post cholecystectomy August 2020, recurrent pancreatitis Patient is to have recurrent episodes of pancreatitis with heavy meals however since he had his cholecystectomy done in August 2020 he hadn't had any episodes of acute pancreatitis. Today July 17 he woke up having some abdominal discomfort he thought he might be having gastritis he went about his day normally however he noticed that the pain was getting worse until it got really severe by around dinnertime feeling nauseous with pain sharp and severe in the epigastric region radiating straight to the back 7 out of 10 in severity for which she decided to come in for evaluation upon arrival to the ED he reports that the pain got worse and he started throwing up. He denies any GI bleeding denies any fevers or chills denies any trauma to the abdomen denies any changes in his medication denies any recent travel denies any upper respiratory infection symptoms denies any changes in his bowel habits or urinary habits He's been eating normal food since surgery and he's been fine In the ED blood work showed elevated lipase and amylase with clinical picture fits recurrent acute pancreatitis Review of Systems Pertinent positives as noted in HPI. All other systems were reviewed and are negative Past Medical History Past Medical History: Pneumonia Additional Past Medical History / Comment(s): bronchial pneumonia, 08/13/18 pancreatitis ( 4 times ), being worked up for LACHO, bilateral knees worn cartlidge-receives injections. History of Any Multi-Drug Resistant Organisms: None Reported Past Surgical History: Orthopedic Surgery Additional Past Surgical History / Comment(s): L nephrectomy (donor), L knee surgery for meniscus tear, L thumb injury with tendon repair, colonoscopy, bilateral eye lasik surgery for vision correction. ERCP Past Anesthesia/Blood Transfusion Reactions: No Reported Reaction Past Psychological History: No Psychological Hx Reported Smoking Status: Former smoker Past Alcohol Use History: None Reported Past Drug Use History: None Reported - Past Family History Father Family Medical History: COPD Additional Family Medical History / Comment(s): Father lived to be 89yrs old. He was a smoker. Mother Family Medical History: CVA/TIA Additional Family Medical History / Comment(s): Mother has heart issues and CVA. She is 89yrs old. Medications and Allergies Home Medications Medication Instructions Recorded Confirmed Type Ascorbic Acid [Vitamin C] 500 mg PO DAILY 07/21/20 12/27/20 History Glucosamine/Chondr Zayas A Sod [Osteo 1 tab PO DAILY 03/10/20 08/16/20 History Bi-Flex Caplet] Multivitamins, Thera [Multivitamin 1 tab PO DAILY 03/10/20 08/16/20 History (formulary)] [place]-3 Fatty Acids/Fish Oil [Fish 1 cap PO DAILY 03/10/20 08/16/20 History Oil 1,000 mg Softgel] Acetaminophen [Tylenol] 500 mg PO Q4-6H PRN 08/16/20 08/16/20 History Cholecalciferol [Vitamin D3 (25 1,000 unit PO DAILY 08/16/20 08/16/20 History Mcg = 1000 Iu)] Allergies Allergy/AdvReac Type Severity Reaction Status Date / Time venom-honey bee Allergy Unknown Verified 07/17/21 20:13 [bee venom (honey bee)] Childhood Physical Exam Vitals: Vital Signs Temp Pulse Resp BP Pulse Ox 07/18/21 02:47 78 17 142/72 98 07/18/21 00:42 70 18 179/105 98 07/17/21 20:09 98.5 F 85 20 146/84 99 Intake and Output 07/17/21 07/17/21 07/18/21 14:59 22:59 06:59 Other: Weight 90.718 kg Constitutional: No acute distress, conversant, pleasant Eyes: Anicteric sclerae, moist conjunctiva, Pupils equal round reactive to light ENMT: NC/AT Oropharynx clear, no erythema, or exudates Neck: Supple, FROM, no masses, or JVD No carotid bruits No thyromegaly Lungs: Clear to auscultation Clear to percussion Normal respiratory effort, no accessory muscle use Cardiovascular: Heart regular in rate and rhythm, No murmurs, gallops, or rubs No peripheral edema Abdominal: Soft Tenderness to deep palpation of the epigastric region with voluntary guarding, no rebound or rigidity Abdomen moving with respiration Normoactive bowel sounds No hepatomegaly, No splenomegaly No palpable mass No abdominal wall hernia noted Skin: Normal temperature, tone, texture, turgor No induration No subcutaneous nodules No rash, lesions No ulcers Extremities: No digital cyanosis No clubbing Pedal pulses intact and symmetrical Radial pulses intact and symmetrical No calf tenderness Psychiatric: Alert and oriented to person, place and time Appropriate affect fair judgement Neuro Muscles Strength 5/5 in all 4 extremities Sensation to light touch grossly present throughout Cranial nerves II-XII grossly intact No focal sensory deficits Lymphatics: no palpable cervical or supraclavicular , or inguinal lymph nodes Results CBC & Chem 7: 07/17/21 23:29 07/17/21 23:29 Labs: Abnormal Lab Results - Last 24 Hours (Table) 07/17/21 Range/Units 23:29 Sodium 135 L (137-145) mmol/L Amylase 2299 H* (30-110) U/L Lipase 7725 H (23-300) U/L Assessment and Plan Assessment: Acute recurrent pancreatitis unknown underlying cause Check liver ultrasound patient status post cholecystectomy for history of low blood of sludge Check IgG subtype 4, check lipid profile for triglyceride Nothing by mouth IV fluid hydration aggressive Pain control with opiates Supportive care Monitor vital signs Monitor hemoglobin and renal function DVT prophylaxis heparin subcu 3 times a day Patient is full code Anticipated length of stay more than 2 midnights
[2021-07-18] MEDS: HEPARIN SODIUM,PORCINE/PF 5,000 UNIT/0.5 ML SYRINGE SQ SCH ×3 (09:03→23:21)
[2021-07-18] MEDS: PANTOPRAZOLE 40 MG/10 ML VIAL IV SCH (09:03)
[2021-07-18 11:55] LABS: Chol/HDL Ratio 4.99 Ratio; LDL Cholesterol,Calculated 135.7 mg/dL (0.0-131.0)
--- NOTE | 2021-07-18 13:19 | US ---
EXAMINATION TYPE: US liver DATE OF EXAM: 07/18/2021 COMPARISON: 08/16/2020 gallbladder ultrasound CLINICAL HISTORY: s/p cholecystectomy, recurrent pancreatitis. EXAM MEASUREMENTS: Liver Length: 17.5 cm Gallbladder Wall: Surgically absent CBD: 0.7 cm Right Kidney: 12.5 x 5.6 x 5.5 cm Pancreas: Obscured by bowel gas Liver: upper limits of normal in size Gallbladder: Surgically absent Evidence for sonographic Robles's sign: No CBD: wnl Right Kidney: No renal collecting system dilatation or shadowing calculi. Heterogeneous hepatic parenchyma with mild increase in echogenicity. Cannot exclude small hepatic mas ses. IMPRESSION: 1. Nonvisualized pancreas due to bowel gas. 2. Heterogeneous hepatic parenchyma mildly increased in echogenicity. 3. Surgically absent gallbladder. Overall limited evaluation, CT of the abdomen and pelvis with contrast is recommended.
[2021-07-19] MEDS: SODIUM CHLORIDE 0.9% 1,000 ML IV SCH ×2 (02:36→14:40)
[2021-07-19 05:47] LABS: Basophils % (A) 1 %; Eosinophils # (A) 0.5 k/uL (0-0.7); Eosinophils % (A) 11 %; HCT 44.1 % (39.0-53.0); HGB 15.2 gm/dL (13.0-17.5); Lymphocytes # (A) 1.4 k/uL (1.0-4.8); Lymphocytes % (A) 31 %; MCH 31.6 pg (25.0-35.0); MCHC 34.6 g/dL (31.0-37.0); MCV 91.5 fL (80.0-100.0); Mean Platelet Volume 7.1; Monocytes # (A) 0.3 k/uL (0-1.0); Monocytes % (A) 6 %; Neutrophils # (A) 2.2 k/uL (1.3-7.7); Neutrophils % (A) 47 %; Platelet Count 239 k/uL (150-450); RBC 4.82 m/uL (4.30-5.90); RDW 12.6 % (11.5-15.5); WBC 4.6 k/uL (3.8-10.6)
[2021-07-19] MEDS: HEPARIN SODIUM,PORCINE/PF 5,000 UNIT/0.5 ML SYRINGE SQ SCH ×2 (08:53→17:01)
[2021-07-19] MEDS: PANTOPRAZOLE 40 MG/10 ML VIAL IV SCH (08:53)
[2021-07-19 11:02] LABS: African American GFR (CKD) 102.9 (60.0-200.0); Albumin 3.8 g/dL (3.8-4.9); Albumin/Globulin Ratio 1.64 (1.60-3.17); Anion Gap 12.6 mmol/L (10.00-18.00); BUN/Creat Ratio 15.15 Ratio (12.00-20.00); Blood Urea Nitrogen 14.7 mg/dL (9.0-27.0); Calcium 8.5 mg/dL (8.7-10.3); Carbon Dioxide 21.2 mmol/L (20.0-27.5); Globulin 2.3 g/dL (1.6-3.3); Magnesium 1.7 mg/dL (1.5-2.4); Non-African American GFR(CKD) 88.8 (60.0-200.0); Phosphorus 2.2 mg/dL (2.4-5.1); Potassium 4.4 mmol/L (3.5-5.5); Total Bilirubin 0.8 mg/dL (0.30-1.20); Total Protein 6.2 g/dL (6.2-8.2)
[2021-07-19 13:03] VITALS: BP 145/69; PULSE 71; RESP 15; TEMP 98.4
--- NOTE | 2021-07-19 13:18 | P.PN ---
<Remi Adams - Last Filed: 07/19/21 12:57> Subjective Progress Note Date: 07/19/21 Hospital course: Patient is a 55-year-old male with history of gallbladder sludge status post c holecystectomy August 2020 and recurrent pancreatitis. Patient presented to the emergency department on 07/17/21 with a chief complaint of abdominal pain. Patient reports waking to sudden onset severe epigastric pain and nausea which was shortly after followed by episodes of vomiting. Patient was found to have acute pancreatitis with amylase of 2299 and lipase of 7725. Patient was made NPO and started on aggressive IV fluid hydration. Patient admitted under our services. Physical exam: Patient seen and fully evaluated at the bedside this morning. Lipase significantly improving from previous 7725 down to 175 this morning. Patient reports pain has significantly improved and has been tolerating ice chips and clear liquids throughout the night. We will advance diet to full liquid and monitor how patient tolerates with plans to further advance to a low-fat diet again as patient tolerates. Patient with transaminitis this morning with AST of 100, ALT of 157, and alkaline phosphatase of 140. Labs otherwise stable. Vital signs unremarkable. Patient denies having any chest pain, palpitations, shortness of breath, nausea, vomiting, or any other complaints at this time. Vital signs reviewed and stable. General: Nontoxic, no distress and appears stated age. Derm: Skin warm and dry, normal coloration for ethnicity. Head: Atraumatic, normocephalic and symmetric. Eyes: EOMs intact, no lid lag, and anicteric sclera Mouth: no lip lesions, mucus membranes moist Cardiovascular: regular rate and rhythm with normal S1S2, no murmur, positive posterior tibial pulses bilaterally, and cap refill < 2 seconds. Lungs: Respirations even, regular, and unlabored on room air. Lungs CTA bilaterally, no rhonchi, no rales, no wheezing, and no accessory muscle usage. Abdominal: soft, nontender to palpation, no guarding, no appreciable organomegaly Ext: ROM intact. No gross muscle atrophy, no edema, no contractures Neuro: Speech clear, face symmetrical and CN II-XII grossly intact with no noted focal neuro deficits Psych: Alert and oriented to person, place, time, and situation. Appropriate and pleasant affect. Assessment and Plan of Care: Acute recurrent pancreatitis of unknown underlying cause Transaminitis -Amylase 2002 199, lipase 7725 -AST 100, ALT 157, and alkaline phosphatase of 140. -Liver ultrasound revealing nonvisualized pancreas secondary to bowel gases, heterogenous hepatic parenchyma with mildly increased and echogenicity, and surgically absent gallbladder -CT abdomen and pelvis with contrast to be completed. -Lipid profile revealing hypertriglyceridemia with triglycerides of 193, elevated total cholesterol of 218, an elevated LDL of 135.7 -Check IgG subtype 4 -Patient tolerated clear liquid diet we will Advance diet to full liquid at this time -Symptomatic care and pain management CODE STATUS: Full code DVT prophylaxis: heparin Discussed with: patient and RN Anticipated discharge date: Clinical course to determine Anticipated discharge place: home A total of 40 minutes was spent on the care of this complex patient more than 50% of the time was spent in counseling and care coordination. Objective - Vital Signs Vital signs: Vital Signs Temp 97.6 F 07/19/21 04:22 Pulse 69 07/19/21 04:22 Resp 18 07/19/21 04:22 BP 135/73 07/19/21 04:22 Pulse Ox 98 07/19/21 04:22 Intake & Output 07/18/21 07/19/21 07/19/21 18:59 06:59 18:59 Intake Total 0 Balance 0 Weight 90.718 kg Intake: Oral 0 Other: # Voids 1 2 - Labs CBC & Chem 7: 07/19/21 04:54 07/19/21 04:54 Labs: Abnormal Lab Results - Last 24 Hours (Table) 07/17/21 07/19/21 Range/Units 23:29 04:54 Glucose 60 L (70-110) mg/dL Calcium 8.5 L (8.7-10.3) mg/dL Phosphorus 2.2 L (2.4-5.1) mg/dL AST 100 H (14-35) U/L ALT 157 H (10-49) U/L Alkaline Phosphatase 140 H (41-126) U/L Triglycerides 193.00 H (0.00-149.00) mg/dL Cholesterol 218.00 H (0.00-200.00) mg/dL LDL Cholesterol, Calc 135.7 H (0.0-131.0) mg/dL Lipase 175 H (14-60) U/L <Kimberly Wang - Last Filed: 07/19/21 13:39> Subjective Remi Adams NP rendered care for this patient independently, reviewed the findings and plan as documented in the note above. I did not physically speak with or examine the patient on this date. Objective - Vital Signs Vital signs: Vital Signs Temp 98.4 F 07/19/21 12:20 Pulse 71 07/19/21 12:20 Resp 15 07/19/21 12:20 BP 145/69 07/19/21 12:20 Pulse Ox 97 07/19/21 12:20 Intake & Output 07/18/21 07/19/21 07/19/21 18:59 06:59 18:59 Intake Total 0 Balance 0 Weight 90.718 kg Intake: Oral 0 Other: # Voids 1 2 - Labs CBC & Chem 7: 07/19/21 04:54 07/19/21 04:54 Labs: Abnormal Lab Results - Last 24 Hours (Table) 07/19/21 Range/Units 04:54 Glucose 60 L (70-110) mg/dL Calcium 8.5 L (8.7-10.3) mg/dL Phosphorus 2.2 L (2.4-5.1) mg/dL AST 100 H (14-35) U/L ALT 157 H (10-49) U/L Alkaline Phosphatase 140 H (41-126) U/L Lipase 175 H (14-60) U/L
--- NOTE | 2021-07-19 18:55 | P.DS ---
<Remi Adams - Last Filed: 07/19/21 18:54> Providers Expected date of discharge: 07/19/21 Hospital Course: Discharge Diagnosis: Acute recurrent pancreatitis of unknown underlying cause Transaminitis Heterogenous hepatic parenchyma, follow up outpatient with gastroenterology Hospital Course: Patient is a 55-year-old male with history of gallbladder sludge status post cholecystectomy August 2020 and recurrent pancreatitis. Patient presented to the emergency department on 07/17/21 with a chief complaint of abdominal pain. Patient reports waking to sudden onset severe epigastric pain and nausea which was shortly after followed by episodes of vomiting. Patient was found to have acute pancreatitis with amylase of 2299 and lipase of 7725. Patient was made NPO and started on aggressive IV fluid hydration. Patient admitted under our services. After aggressive IV hydration and patient's pain significantly improved and lipase decreased from 7725 down to 175. Patient tolerating clear liquid diet and was advanced to full liquid diet and tolerated well. Patient then advanced to low-fat diet and again tolerated well with no return of pain/discomfort and/or nausea and vomiting. Patient did undergo a liver ultrasound revealing nonvisualized pancreas secondary to bowel gases, heterogenous hepatic parenchyma with mildly increased and echogenicity, and surgically absent gallbladder. A CT abdomen and pelvis with contrast was completed. Patient very anxious regarding discharge and requesting to be discharged home prior to results of computed tomography scan. Patient informed that these results are not available and adamant regarding discharge. Patient instructed he will need to follow up with his primary care doctor to obtain these results. Patient verbalized understanding and stable for discharge home at this time. Patient to follow-up as recommended with PCP as well as gastroenterology. Please refer to progress note written earlier today to review a full detailed assessment. A total of 35 minutes of time were spent preparing this complex discharge summary. Assessment: I agree with the documented assessment and plan by our JEWELS, Remi Adams, as detailed in the note with the following changes: none. Patient Condition at Discharge: Good Plan - Discharge Summary Discharge Rx Participant: No New Discharge Prescriptions: Continue Ascorbic Acid [Vitamin C] 500 mg PO DAILY [place]-3 Fatty Acids/Fish Oil [Fish Oil 1,000 mg Softgel] 1 cap PO DAILY Glucosamine/Chondr Zayas A Sod [Osteo Bi-Flex Caplet] 1 tab PO DAILY Cholecalciferol [Vitamin D3 (25 Mcg = 1000 Iu)] 25 mcg PO DAILY Multivit-Min/Folic/Vit K/Lycop [Men's Multivitamin Tablet] 1 tab PO DAILY Discharge Medication List Ascorbic Acid [Vitamin C] 500 mg PO DAILY 03/10/20 [History] Glucosamine/Chondr Zayas A Sod [Osteo Bi-Flex Caplet] 1 tab PO DAILY 03/10/20 [History] [place]-3 Fatty Acids/Fish Oil [Fish Oil 1,000 mg Softgel] 1 cap PO DAILY 03/10/20 [History] Cholecalciferol [Vitamin D3 (25 Mcg = 1000 Iu)] 25 mcg PO DAILY 08/16/20 [History] Multivit-Min/Folic/Vit K/Lycop [Men's Multivitamin Tablet] 1 tab PO DAILY 07/18/21 [History] Follow up Appointment(s)/Referral(s): Brittanie Silveira MD [STAFF PHYSICIAN] - 1 Week (recurrent pancreatitis ) Benjamin De MD [Primary Care Provider] - 1-2 days Patient Instructions/Handouts: Pancreatitis (DC), Acute Abdominal Pain (DC) Activity/Diet/Wound Care/Special Instructions: Activity: As tolerated. Take breaks as needed. Diet: Low fat Heart healthy and carb consistent diet. Avoid salts, or foods with hidden salts such as canned or boxed foods and frozen dinners. Special Instructions: Take all of your medications as directed and remember to keep all of your doctor's appointments and follow-up as needed. We will discharge you home as you have requested, despite not having CT resullts. Therefore, it is very important for you to follow up outpatient with your primary doctor., Dr. De, as discussed for to obtain these results as they are not available at the time of your discharge. Thank you for allowing us to participate in your care, it was truly a pleasure having you for our patient!!! Discharge Disposition: HOME SELF-CARE <Duc Mack - Last Filed: 07/19/21 22:13> Providers Date of admission: 07/18/21 01:54 Attending physician: Lashonda Bustos MD Primary care physician: Benjamin De
--- NOTE | 2021-07-19 20:04 | CT ---
EXAMINATION TYPE: CT abdomen pelvis w con DATE OF EXAM: 07/19/2021 COMPARISON: CT abdomen pelvis 09/24/2019 HISTORY: Liver US unable to rule out hepatic mass. Elevated liver enzymes. CT DLP: 806.6 mGycm Automated exposure control for dose reduction was used. TECHNIQUE: Helical acquisition of images was performed from the lung bases through the pelvis. CONTRAST: Performed without Oral Contrast and with IV Contrast, patient injected with 100 mL of Isovue M300. FINDINGS: LUNG BASES: No significant abnormality is appreciated. LIVER/GB: Noncirrhotic morphology. No intrahepatic or extrahepatic biliary ductal dilatation. The por krishna veins are patent. The gallbladder is absent. PANCREAS: No significant abnormality is seen. SPLEEN: No significant abnormality is seen. ADRENALS: No significant abnormality is seen. KIDNEYS: Left nephrectomy. Subcentimeter hypodensities of the right kidney are indeterminate. Bladde r is unremarkable. FREE AIR: No free air is visualized. RETROPERITONEAL ADENOPATHY: None visualized REPRODUCTIVE ORGANS: No significant abnormality is seen URINARY BLADDER: No significant abnormality is seen. PELVIC ADENOPATHY: None visualized. OSSEOUS STRUCTURES: No significant abnormality is seen. BOWEL: No significant abnormality is seen. OTHER: Metallic clips overlying the left psoas muscle. IMPRESSION: * NO ACUTE PROCESS IN THE ABDOMEN. * NO CT EVIDENCE OF A HEPATIC MASS.
[2021-07-23 10:25] LABS: IgG Subclass 1 879.6 mg/dL (382.40-928.60); IgG Subclass 2 265.9 mg/dL (241.80-700.30); IgG Subclass 3 24.4 mg/dL (21.82-176.00); IgG Subclass 4 30.5 mg/dL (3.92-86.40)
== END 2021-07-19 19:05 | disposition home or self-care (01) ==
LOC: EC 19:43 → 5NMEDONC 07-18 01:54 → INTOOBSV 07-18 01:54 → 5NMEDONC 07-18 13:11 → UNDODISIN 07-19 19:05
PROVIDERS: ADMIT Internal Medicine; ATTEND Internal Medicine
DX: K85.90 Acute pancreatitis without necrosis or infection, unspecified (principal); K86.1 Other chronic pancreatitis; E78.1 Pure hyperglyceridemia; M24.19 Other articular cartilage disorders, other specified site; Z20.822 Contact with and (suspected) exposure to COVID-19; Z79.899 Other long term (current) drug therapy; Z91.030 Bee allergy status; Z87.01 Personal history of pneumonia (recurrent); Z90.49 Acquired absence of other specified parts of digestive tract; Z90.5 Acquired absence of kidney; Z87.891 Personal history of nicotine dependence; Z98.890 Other specified postprocedural states; Z82.5 Family history of asthma and other chronic lower respiratory diseases; Z82.3 Family history of stroke; Z82.49 Family history of ischemic heart disease and other diseases of the circulatory system
CPT/HCPCS: 96376 ×3; 96361 ×3; 96372 ×3; 96374; 96375; 99285 ×2; 36415; 80061; 80053 ×2; 82150; 83690 ×2; 83735; 84100; 85025 ×2; 82787; 80320; 87635; 76705; 74177; G0378 ×2; J2270; J2405; J1170; C9113 ×2; Q9967; J1644 ×2

== ENCOUNTER 2021-12-30 13:11 | Emergency (ER) | payer BC ==
[2021-12-30 15:20] VITALS: RESP 18
[2021-12-30 15:57] LABS: Basophils # (A) 0.1 k/uL (0-0.2); Basophils % (A) 1 %; Eosinophils # (A) 0.2 k/uL (0-0.7); Eosinophils % (A) 4 %; HGB 14.9 gm/dL (13.0-17.5); Lymphocytes # (A) 1.4 k/uL (1.0-4.8); Lymphocytes % (A) 23 %; MCV 91.4 fL (80.0-100.0); Mean Platelet Volume 7.1; Monocytes # (A) 0.4 k/uL (0-1.0); Monocytes % (A) 6 %; Neutrophils # (A) 3.8 k/uL (1.3-7.7); Neutrophils % (A) 64 %; Platelet Count 299 k/uL (150-450); RBC 4.82 m/uL (4.30-5.90); RDW 13.3 % (11.5-15.5)
[2021-12-30 16:09] LABS: ALT 28 U/L (4-49); AST 40 U/L (17-59); African American GFR (CKD) >90 (>60 ml/min/1.73 sqM); Albumin 4.7 g/dL (3.5-5.0); Alkaline Phosphatase 117 U/L (38-126); Anion Gap 9 mmol/L; Blood Urea Nitrogen 15 mg/dL (9-20); Calcium 9.2 mg/dL (8.4-10.2); Carbon Dioxide 25 mmol/L (22-30); Chloride 102 mmol/L (98-107); Glucose 71 mg/dL (74-99); Lipase 710 U/L (23-300); Non-African American GFR(CKD) 84 (>60 ml/min/1.73 sqM); Potassium 4.9 mmol/L (3.5-5.1); Sodium 136 mmol/L (137-145); Total Bilirubin 1.4 mg/dL (0.2-1.3); Total Protein 7.7 g/dL (6.3-8.2)
[2021-12-30 16:27] LABS: Amylase 470 U/L (30-110)
[2021-12-30] MEDS ORDERED: SODIUM CHLORIDE 0.9% 2,000 ML IV STA (19:56)
--- NOTE | 2021-12-30 20:01 | ED ---
General Adult HPI - General Chief complaint: Abdominal Pain Stated complaint: Pancreatitis Time Seen by Provider: 12/30/21 19:35 Source: patient Mode of arrival: ambulatory Limitations: no limitations - History of Present Illness Initial comments: This 56-year-old male with past medical history of chronic pancreatitis presents emergency Department after being sent here by his primary care provider for pancreatitis. Patient states he has experienced episodes of acute pancreatitis for many years. Patient states he is now realizing greasy and fatty meals are would bring on his abdominal pain/pancreatitis. Patient states he had a greasy breakfast on Monday morning and began to experience abdominal pain on Monday night. Patient states his pain was worsening until yesterday when it started to get better after he stopped eating all foods at home and only began to drink water and flavored water. Patient states he has not eaten any solid food since Monday afternoon. Patient states he went to his primary care provider yesterday and got his labs drawn and was called this morning and told to come to the emergency department because his amylase level was 2000- patient states his lipase is elevated but he is unsure what the number was. Patient states while waiting in the waiting room he did have a cough and the sugar and it. Patient denies alcohol use. Patient states this feels exactly like his prior episodes of pancreatitis and states that the dull constant ache in his upper epigastric region and states the pain is 7/10. Patient states since he has not been eating food over the last 2 days he has not had a bowel movement 1 day. Patient denies any chest pain, shortness of breath, fever, nausea, vomiting, change in bladder, change in vision, lightheadedness, dizziness, headache. - Related Data Home Medications Medication Instructions Recorded Confirmed Ascorbic Acid [Vitamin C] 500 mg PO DAILY 03/10/20 12/30/21 Glucosamine/Chondr Zayas A Sod [Osteo 1 tab PO DAILY 03/10/20 12/30/21 Bi-Flex Caplet] [place]-3 Fatty Acids/Fish Oil [Fish 1 cap PO DAILY 03/10/20 12/30/21 Oil 1,000 mg Softgel] Multivit-Min/Folic/Vit K/Lycop 1 tab PO DAILY 07/18/21 12/30/21 [Men's Multivitamin Tablet] Cholecalciferol [Vitamin D3 (25 25 mcg PO DAILY 12/30/21 12/30/21 Mcg = 1000 Iu)] Allergies Allergy/AdvReac Type Severity Reaction Status Date / Time No Known Allergies Allergy Verified 12/30/21 20:15 Review of Systems ROS Statement: Those systems with pertinent positive or pertinent negative responses have been documented in the HPI. ROS Other: All systems not noted in ROS Statement are negative. Past Medical History Past Medical History: Pneumonia Additional Past Medical History / Comment(s): bronchial pneumonia, 08/13/18 pancreatitis ( 4 times ), bilateral knees worn cartlidge-receives injections. History of Any Multi-Drug Resistant Organisms: None Reported Past Surgical History: Cholecystectomy, Orthopedic Surgery Additional Past Surgical History / Comment(s): L nephrectomy (donor), L knee surgery for meniscus tear, L thumb injury with tendon repair, colonoscopy, bilateral eye lasik surgery for vision correcti Past Anesthesia/Blood Transfusion Reactions: No Reported Reaction Past Psychological History: No Psychological Hx Reported Smoking Status: Former smoker Past Alcohol Use History: None Reported Past Drug Use History: None Reported - Past Family History Father Family Medical History: COPD Additional Family Medical History / Comment(s): Father lived to be 89yrs old. He was a smoker. Mother Family Medical History: CVA/TIA Additional Family Medical History / Comment(s): Mother has heart issues and CVA. She is 89yrs old. General Exam Limitations: no limitations General appearance: alert, in no apparent distress Head exam: Present: atraumatic, normocephalic, normal inspection Eye exam: Present: normal appearance, PERRL, EOMI. Absent: scleral icterus, conjunctival injection, periorbital swelling Pupils: Present: normal accommodation ENT exam: Present: normal exam, mucous membranes moist Neck exam: Present: normal inspection, full ROM. Absent: tenderness, meningismus, lymphadenopathy Respiratory exam: Present: normal lung sounds bilaterally. Absent: respiratory distress, wheezes, rales, rhonchi, stridor, chest wall tenderness Cardiovascular Exam: Present: regular rate, normal rhythm, normal heart sounds. Absent: systolic murmur, diastolic murmur, rubs, gallop, clicks GI/Abdominal exam: Present: soft, tenderness (Tenderness to palpation over pancreas-upper epigastric region), normal bowel sounds. Absent: distended, guarding, rebound, rigid Extremities exam: Present: normal inspection, full ROM, normal capillary refill. Absent: tenderness, pedal edema, joint swelling, calf tenderness Back exam: Present: full ROM. Absent: CVA tenderness (R), CVA tenderness (L), paraspinal tenderness, vertebral tenderness Neurological exam: Present: alert, oriented X3, CN II-XII intact Psychiatric exam: Present: normal affect, normal mood Skin exam: Present: warm, dry, intact, normal color. Absent: rash Course Vital Signs 12/30/21 14:48 Temperature 97.8 F Pulse Rate 76 Respiratory 18 Rate Blood Pressure 148/83 O2 Sat by Pulse 98 Oximetry Medical Decision Making - Medical Decision Making This 56-year-old male with past medical history of chronic pancreatitis presents to the emergency department with acute pancreatitis. Patient states his labs were up yesterday according to labs that were drawn by his primary care provider - he states they called him today and told him to come to the emergency department due to his amylase greater than 2000 yesterday and an elevated lipase, however he is unsure what the number was. Patient with glucose 71 on initial reading- 89 prior to discharge -patient drink sugary coffee after this blood draw and was given orange juice in the emergency department. Amylase 470, lipase 710. 2 L normal saline given and patient. Patient was requesting discharge. Instructed patient to begin a clear liquid x24 hours and advance to a bland/soft diet as tolerated. Instructed patient to follow-up with his primary care provider in the next 1-2 days. Strict return precautions were discussed. Patient verbally agree to plan. Patient sent home in stable condition. Case discussed in detail with my attending, . - Lab Data Result diagrams: 12/30/21 15:28 12/30/21 15:28 Lab Results 12/30/21 12/30/21 12/30/21 Range/Units 15:28 15:28 21:17 WBC 6.0 (3.8-10.6) k/uL RBC 4.82 (4.30-5.90) m/uL Hgb 14.9 (13.0-17.5) gm/dL Hct 44.0 (39.0-53.0) % MCV 91.4 (80.0-100.0) fL MCH 31.0 (25.0-35.0) pg MCHC 34.0 (31.0-37.0) g/dL RDW 13.3 (11.5-15.5) % Plt Count 299 (150-450) k/uL MPV 7.1 Neutrophils % 64 % Lymphocytes % 23 % Monocytes % 6 % Eosinophils % 4 % Basophils % 1 % Neutrophils # 3.8 (1.3-7.7) k/uL Lymphocytes # 1.4 (1.0-4.8) k/uL Monocytes # 0.4 (0-1.0) k/uL Eosinophils # 0.2 (0-0.7) k/uL Basophils # 0.1 (0-0.2) k/uL Sodium 136 L (137-145) mmol/L Potassium 4.9 (3.5-5.1) mmol/L Chloride 102 (98-107) mmol/L Carbon Dioxide 25 (22-30) mmol/L Anion Gap 9 mmol/L BUN 15 (9-20) mg/dL Creatinine 1.01 (0.66-1.25) mg/dL Est GFR (CKD-EPI)AfAm >90 (>60 ml/min/1.73 sqM) Est GFR (CKD-EPI)NonAf 84 (>60 ml/min/1.73 sqM) Glucose 71 L (74-99) mg/dL POC Glucose (mg/dL) 89 (75-99) mg/dL POC Glu Certified Court Interpreter ID [place] Calcium 9.2 (8.4-10.2) mg/dL Total Bilirubin 1.4 H (0.2-1.3) mg/dL AST 40 (17-59) U/L ALT 28 (4-49) U/L Alkaline Phosphatase 117 (38-126) U/L Total Protein 7.7 (6.3-8.2) g/dL Albumin 4.7 (3.5-5.0) g/dL Amylase 470 H* (30-110) U/L Lipase 710 H (23-300) U/L Disposition Clinical Impression: Pancreatitis, acute Disposition: HOME SELF-CARE Condition: Stable Instructions (If sedation given, give patient instructions): Pancreatitis (ED), Clear Liquid Diet (ED) Additional Instructions: Please maintain a clear liquid diet x24 hours and advance to a bland diet as tolerated. Avoid greasy/fatty foods. Follow-up with your primary care provider next 1-2 days. Return to the emergency department with any new, worsening, or concerning symptoms. Is patient prescribed a controlled substance at d/c from ED?: No Referrals: Benjamin De MD [Primary Care Provider] - 1-2 days
[2021-12-30 21:18] LABS: Glucose,Whole Blood 89 mg/dL (75-99)
[2021-12-30 21:25] VITALS: BP 132/78; PULSE 89; TEMP 98.9
== END 2021-12-30 21:24 | disposition home or self-care (01) ==
LOC: EC 13:11
DX: K85.90 Acute pancreatitis without necrosis or infection, unspecified (principal); F17.200 Nicotine dependence, unspecified, uncomplicated
CPT/HCPCS: 36415; 80053; 82150; 83690; 85025

== ENCOUNTER 2022-12-27 02:55 | Observation (INO) | payer BC ==
--- NOTE | 2022-12-27 03:12 | ED ---
Abdominal Pain HPI - General Stated Complaint: Abd Pain Time Seen by Provider: 12/27/22 03:10 - History of Present Illness MD Complaint: abdominal pain -: hour(s) Location: LUQ, RUQ Radiation: none Migration to: no migration Severity: moderate Quality: aching Consistency: constant Improves With: nothing Worsens With: other (after eating greasy food) Associated Symptoms: nausea - Related Data Home Medications Medication Instructions Recorded Confirmed Ascorbic Acid [Vitamin C] 500 mg PO DAILY 03/10/20 12/30/21 Glucosamine/Chondr Zayas A Sod [Osteo 1 tab PO DAILY 03/10/20 12/30/21 Bi-Flex Caplet] [place]-3 Fatty Acids/Fish Oil [Fish 1 cap PO DAILY 03/10/20 12/30/21 Oil 1,000 mg Softgel] Multivit-Min/Folic/Vit K/Lycop 1 tab PO DAILY 07/18/21 12/30/21 [Men's Multivitamin Tablet] Cholecalciferol [Vitamin D3 (25 25 mcg PO DAILY 12/30/21 12/30/21 Mcg = 1000 Iu)] Allergies Allergy/AdvReac Type Severity Reaction Status Date / Time No Known Allergies Allergy Verified 12/30/21 20:15 Review of Systems ROS Statement: Those systems with pertinent positive or pertinent negative responses have been documented in the HPI. ROS Other: All systems not noted in ROS Statement are negative. Constitutional: Denies: fever, chills Respiratory: Denies: cough, dyspnea Cardiovascular: Denies: chest pain, palpitations, edema Gastrointestinal: Reports: abdominal pain, nausea. Denies: vomiting, diarrhea, constipation, melena, hematochezia Genitourinary: Denies: dysuria, hematuria, testicular pain Musculoskeletal: Denies: back pain Skin: Denies: rash Neurological: Denies: headache, weakness Past Medical History Past Medical History: Pneumonia Additional Past Medical History / Comment(s): bronchial pneumonia, 08/13/18 pancreatitis ( 4 times ), bilateral knees worn cartlidge-receives injections. History of Any Multi-Drug Resistant Organisms: None Reported Past Surgical History: Cholecystectomy, Orthopedic Surgery Additional Past Surgical History / Comment(s): L nephrectomy (donor), L knee surgery for meniscus tear, L thumb injury with tendon repair, colonoscopy, bilateral eye lasik surgery for vision correcti Past Anesthesia/Blood Transfusion Reactions: No Reported Reaction Past Psychological History: No Psychological Hx Reported Smoking Status: Former smoker Past Alcohol Use History: None Reported Past Drug Use History: None Reported - Past Family History Father Family Medical History: COPD Additional Family Medical History / Comment(s): Father lived to be 89yrs old. He was a smoker. Mother Family Medical History: CVA/TIA Additional Family Medical History / Comment(s): Mother has heart issues and CVA. She is 89yrs old. General Exam General appearance: alert, in no apparent distress Head exam: Present: atraumatic, normocephalic Eye exam: Present: normal appearance. Absent: scleral icterus, conjunctival injection Neck exam: Present: normal inspection Respiratory exam: Present: normal lung sounds bilaterally. Absent: respiratory distress, wheezes, rales, rhonchi, stridor Cardiovascular Exam: Present: regular rate, normal rhythm, normal heart sounds. Absent: systolic murmur, diastolic murmur, rubs, gallop GI/Abdominal exam: Present: soft. Absent: distended, tenderness, guarding, rebound, rigid, mass, pulsatile mass, hernia Extremities exam: Present: normal inspection, normal capillary refill. Absent: pedal edema, calf tenderness Back exam: Present: normal inspection. Absent: CVA tenderness (R), CVA tenderness (L) Neurological exam: Present: alert Skin exam: Present: warm, dry, intact, normal color. Absent: rash Course Vital Signs 12/27/22 12/27/22 03:09 03:15 Temperature 98 F 98.2 F Pulse Rate 76 66 Respiratory 18 20 Rate Blood Pressure 186/103 188/98 O2 Sat by Pulse 99 100 Oximetry Medical Decision Making - Lab Data Result diagrams: 12/27/22 03:29 12/27/22 03:29 Lab Results 12/27/22 12/27/22 12/27/22 Range/Units 03:29 03:29 03:29 WBC 11.5 H (3.8-10.6) k/uL RBC 5.18 (4.30-5.90) m/uL Hgb 16.1 (13.0-17.5) gm/dL Hct 47.2 (39.0-53.0) % MCV 91.0 (80.0-100.0) fL MCH 31.0 (25.0-35.0) pg MCHC 34.1 (31.0-37.0) g/dL RDW 12.4 (11.5-15.5) % Plt Count 265 (150-450) k/uL MPV 7.3 Neutrophils % 64 % Lymphocytes % 18 % Monocytes % 6 % Eosinophils % 8 % Basophils % 1 % Neutrophils # 7.4 (1.3-7.7) k/uL Lymphocytes # 2.1 (1.0-4.8) k/uL Monocytes # 0.7 (0-1.0) k/uL Eosinophils # 0.9 H (0-0.7) k/uL Basophils # 0.1 (0-0.2) k/uL Sodium 139 (137-145) mmol/L Potassium 4.1 (3.5-5.1) mmol/L Chloride 102 (98-107) mmol/L Carbon Dioxide 28 (22-30) mmol/L Anion Gap 9 mmol/L BUN 21 H (9-20) mg/dL Creatinine 0.96 (0.66-1.25) mg/dL Est GFR (CKD-EPI)AfAm >90 (>60 ml/min/1.73 sqM) Est GFR (CKD-EPI)NonAf 89 (>60 ml/min/1.73 sqM) Glucose 112 H (74-99) mg/dL Plasma Lactic Acid Tenzin 2.2 H* (0.7-2.0) mmol/L Calcium 8.9 (8.4-10.2) mg/dL Total Bilirubin 0.8 (0.2-1.3) mg/dL AST 37 (17-59) U/L ALT 32 (4-49) U/L Alkaline Phosphatase 132 H (38-126) U/L Total Protein 7.5 (6.3-8.2) g/dL Albumin 4.3 (3.5-5.0) g/dL Amylase 4271 H* (30-110) U/L Lipase >60485 H (23-300) U/L - EKG Data -: EKG Interpreted by Me EKG shows normal: sinus rhythm, axis (normal), intervals (normal), QRS complexes (normal), ST-T waves (normal) Rate: bradycardia (rate 58 bpm) Disposition Clinical Impression: Acute pancreatitis, Abdominal pain Disposition: ADMITTED IP TO THIS HOSP Condition: Fair Is patient prescribed a controlled substance at d/c from ED?: No Referrals: Nonstaff,Physician [Primary Care Provider] - 1-2 days
[2022-12-27] MEDS ORDERED: ONDANSETRON 4 MG/2 ML VIAL IVP STA (03:19)
[2022-12-27] MEDS ORDERED: SODIUM CHLORIDE 0.9% 1,000 ML IV STA (03:19)
[2022-12-27] MEDS ORDERED: HYDROmorphone 0.5 MG/0.5 ML SYRINGE IVP STA (03:19)
[2022-12-27] MEDS ORDERED: SODIUM CHLORIDE 0.9% 1,000 ML IV ONE (03:19)
[2022-12-27 03:59] LABS: Basophils # (A) 0.1 k/uL (0-0.2); Basophils % (A) 1 %; Eosinophils # (A) 0.9 k/uL (0-0.7); Eosinophils % (A) 8 %; HCT 47.2 % (39.0-53.0); HGB 16.1 gm/dL (13.0-17.5); Lymphocytes # (A) 2.1 k/uL (1.0-4.8); Lymphocytes % (A) 18 %; MCHC 34.1 g/dL (31.0-37.0); Mean Platelet Volume 7.3; Monocytes # (A) 0.7 k/uL (0-1.0); Monocytes % (A) 6 %; Neutrophils # (A) 7.4 k/uL (1.3-7.7); Neutrophils % (A) 64 %; Platelet Count 265 k/uL (150-450); RBC 5.18 m/uL (4.30-5.90); RDW 12.4 % (11.5-15.5); WBC 11.5 k/uL (3.8-10.6)
[2022-12-27 04:05] LABS: ALT 32 U/L (4-49); AST 37 U/L (17-59); African American GFR (CKD) >90 (>60 ml/min/1.73 sqM); Albumin 4.3 g/dL (3.5-5.0); Alkaline Phosphatase 132 U/L (38-126); Anion Gap 9 mmol/L; Blood Urea Nitrogen 21 mg/dL (9-20); Calcium 8.9 mg/dL (8.4-10.2); Carbon Dioxide 28 mmol/L (22-30); Chloride 102 mmol/L (98-107); Glucose 112 mg/dL (74-99); Non-African American GFR(CKD) 89 (>60 ml/min/1.73 sqM); Potassium 4.1 mmol/L (3.5-5.1); Sodium 139 mmol/L (137-145); Total Bilirubin 0.8 mg/dL (0.2-1.3); Total Protein 7.5 g/dL (6.3-8.2)
[2022-12-27 05:35] LABS: Amylase 4271 U/L (30-110)
[2022-12-27 05:38] LABS: Lipase >20000 U/L (23-300)
[2022-12-27] MEDS ORDERED: NALOXONE 0.4 MG/ML 1 ML VIAL IV PRN (06:03)
[2022-12-27] MEDS ORDERED: HYDROmorphone 0.5 MG/0.5 ML SYRINGE IVP PRN (06:03)
[2022-12-27 06:13] LABS: Appearance,Urine Clear (Clear); Bilirubin,Urine Negative (Negative); Blood,Urine Negative (Negative); Color,Urine Yellow; Glucose,Urine (UA) Negative (Negative); Ketones,Urine Negative (Negative); Leukocyte Esterase,Urine Negative (Negative); Nitrite,Urine Negative (Negative); Protein,Urine Trace (Negative); Specific Gravity,Urine 1.024 (1.001-1.035); Urobilinogen,Urine <2.0 mg/dL (<2.0)
[2022-12-27] MEDS ORDERED: HYDROmorphone 1 MG/ML 1 ML SYRINGE IVP STA (06:16)
[2022-12-27] MEDS: MORPHINE SULFATE 4 MG/ML SYRINGE IV PRN ×4 (06:24→23:50)
[2022-12-27] MEDS: SODIUM CHLORIDE 0.9% 1,000 ML IV SCH ×4 (07:34→21:17)
[2022-12-27] MEDS: PANTOPRAZOLE 40 MG/10 ML VIAL IV SCH (08:19)
[2022-12-27] MEDS: ONDANSETRON 4 MG/2 ML VIAL IVP PRN ×2 (08:19→14:37)
--- NOTE | 2022-12-27 11:33 | P.HPIM ---
History of Present Illness H&P Date: 12/27/22 Patient is a 57-year-old male with history of recurrent pancreatitis presenting with acute abdominal pain. He claims that his pain started last night, epigastric, 10/10, nonradiating, associated with nausea and vomiting. He claims that he has been having recurrent tachycardias for the last 4 years, has been worked up at [facility], however no etiology has been found. He does follow up with GI as well. He denies any smoking, alcohol, or illicit drug use. In the ED, temperature was 98, pulse 76, respiratory rate 18, blood pressure 186/103, saturating at 99%. WBC 11.5, BUN 21, creatinine 0.96, lactic acid 2.2, lipase greater than 20,000. EKG personally interpreted, shows sinus rhythm. Patient is admitted for acute pancreatitis. Pertinent positives and negatives as discussed in HPI, a complete review of systems was performed and all other systems are negative. Patient seen and examined at bedside. Vital signs reviewed General: nontoxic, no distress, appears at stated age Derm: warm, dry Head: atraumatic, normocephalic, symmetric Eyes: EOMI, no lid lag, anicteric sclera, pupils equal round reactive to light ENT: Nose and ears atraumatic Neck: No thyromegaly, supple Mouth: no lip lesion, mucus membranes moist Cardiovascular: S1S2 reg, no murmur, no edema Lungs: clear to auscultation bilateral, no rhonchi, no rales, no wheeze, no accessory muscle use Abdominal: soft, tender to palpation in epigastric region, no guarding, no appreciable organomegaly Ext: no gross muscle atrophy, muscle strength muscle strength 5 out of 5 in all 4 extremities, no contractures Neuro: CN II-XII grossly intact Psych: Alert, oriented, appropriate affect Assessment/Plan: Acute recurrent pancreatitis, unclear etiology Leukocytosis Prerenal azotemia Malignant hypertension Lactic acidosis -Patient has had extensive workup for recurrent pancreatitis in the past. -IV normal saline increased her to 200 mL an hour -Pain control with oral Tylenol as needed, IV Dilaudid as needed, IV morphine as needed -Zofran as needed -Pantoprazole 40 mg IV daily -Lactic acidosis has resolved -Malignant hypertension likely in the setting of pain, blood pressure now better controlled -Repeat CBC to monitor for leukocytes and BMP tomorrow to monitor for electrolytes as well as renal function -If no improvement in pain by tomorrow, we'll consider CT abdomen and pelvis -Diet advanced to clear liquids The patient is admitted with an anticipated greater than 2 midnight stay as inpatient status for evaluation of acute pancreatitis. Surrogate decision-maker: CODE STATUS: Full code DVT prophylaxis: Lovenox Anticipated discharge date: Pending clinical course Anticipated discharge place: Pending clinical course A total of 55 minutes was spent on the care of this complex patient more than 50% of the time was spent in counseling and care coordination. Past Medical History Past Medical History: Pneumonia Additional Past Medical History / Comment(s): bronchial pneumonia, pancreatitis, bilateral knees worn cartlidge-receives injections. History of Any Multi-Drug Resistant Organisms: None Reported Past Surgical History: Cholecystectomy, Orthopedic Surgery Additional Past Surgical History / Comment(s): L nephrectomy (donor), L knee surgery for meniscus tear, L thumb injury with tendon repair, colonoscopy, bilateral eye lasik surgery for vision correcti Past Anesthesia/Blood Transfusion Reactions: No Reported Reaction Past Psychological History: No Psychological Hx Reported Additional Psychological History / Comment(s): Pt resides with his spouse. He is independent. Smoking Status: Former smoker Past Alcohol Use History: None Reported Additional Past Alcohol Use History / Comment(s): . Past Drug Use History: None Reported - Past Family History Father Family Medical History: COPD Additional Family Medical History / Comment(s): Father lived to be 89yrs old. He was a smoker. Mother Family Medical History: CVA/TIA Additional Family Medical History / Comment(s): Mother has heart issues and CVA. She is 89yrs old. Medications and Allergies Home Medications Medication Instructions Recorded Confirmed Type No Known Home Medications 12/27/22 12/27/22 History Allergies Allergy/AdvReac Type Severity Reaction Status Date / Time No Known Allergies Allergy Verified 12/27/22 07:36 Physical Exam Vitals: Vital Signs Temp Pulse Pulse Resp BP BP Pulse Ox 12/27/22 08:00 97.9 F 65 19 163/78 96 12/27/22 06:31 97.8 F 72 20 142/81 98 12/27/22 06:17 98.7 F 72 22 142/81 98 12/27/22 03:15 98.2 F 66 20 188/98 100 12/27/22 03:09 98 F 76 18 186/103 99 Intake and Output 12/26/22 12/27/22 12/27/22 22:59 06:59 14:59 Other: Voiding Method Toilet Weight 90 kg Results CBC & Chem 7: 12/27/22 03:29 12/27/22 03:29 Labs: Abnormal Lab Results - Last 24 Hours (Table) 12/27/22 12/27/22 12/27/22 Range/Units 03:29 03:29 03:29 WBC 11.5 H (3.8-10.6) k/uL Eosinophils # 0.9 H (0-0.7) k/uL BUN 21 H (9-20) mg/dL Glucose 112 H (74-99) mg/dL Plasma Lactic Acid Tenzin (0.7-2.0) mmol/L Alkaline Phosphatase 132 H (38-126) U/L Amylase 4271 H* (30-110) U/L Lipase >40001 H (23-300) U/L Urine Protein Trace H (Negative) 12/27/22 Range/Units 03:29 WBC (3.8-10.6) k/uL Eosinophils # (0-0.7) k/uL BUN (9-20) mg/dL Glucose (74-99) mg/dL Plasma Lactic Acid Tenzin 2.2 H* (0.7-2.0) mmol/L Alkaline Phosphatase (38-126) U/L Amylase (30-110) U/L Lipase (23-300) U/L Urine Protein (Negative)
[2022-12-27] MEDS: ACETAMINOPHEN TAB 325 MG TAB PO PRN (18:32)
[2022-12-28] MEDS: SODIUM CHLORIDE 0.9% 1,000 ML IV SCH ×2 (02:34→07:35)
[2022-12-28] MEDS: ACETAMINOPHEN TAB 325 MG TAB PO PRN (04:39)
[2022-12-28 06:16] LABS: Basophils % (A) 1 %; Eosinophils # (A) 0.4 k/uL (0-0.7); Eosinophils % (A) 8 %; HCT 42.5 % (39.0-53.0); HGB 13.6 gm/dL (13.0-17.5); Lymphocytes % (A) 23 %; MCH 30.3 pg (25.0-35.0); MCHC 32.1 g/dL (31.0-37.0); MCV 94.5 fL (80.0-100.0); Monocytes # (A) 0.3 k/uL (0-1.0); Monocytes % (A) 8 %; Neutrophils # (A) 2.5 k/uL (1.3-7.7); Neutrophils % (A) 58 %; Platelet Count 185 k/uL (150-450); RBC 4.49 m/uL (4.30-5.90); RDW 12.6 % (11.5-15.5); WBC 4.3 k/uL (3.8-10.6)
[2022-12-28 06:28] LABS: African American GFR (CKD) >90 (>60 ml/min/1.73 sqM); Anion Gap 4 mmol/L; Blood Urea Nitrogen 10 mg/dL (9-20); Calcium 7.8 mg/dL (8.4-10.2); Carbon Dioxide 26 mmol/L (22-30); Chloride 109 mmol/L (98-107); Glucose 77 mg/dL (74-99); Non-African American GFR(CKD) >90 (>60 ml/min/1.73 sqM); Potassium 4.8 mmol/L (3.5-5.1); Sodium 139 mmol/L (137-145)
[2022-12-28 07:33] VITALS: BP 109/62; PULSE 63; RESP 18; TEMP 97.9
[2022-12-28] MEDS: PANTOPRAZOLE 40 MG/10 ML VIAL IV SCH (07:35)
[2022-12-28] MEDS ORDERED: ENOXAPARIN 40 MG/0.4 ML SYRINGE SQ SCH (09:00)
--- NOTE | 2022-12-28 12:50 | P.DS ---
Providers Date of admission: 12/27/22 06:06 Expected date of discharge: 12/28/22 Attending physician: Lashonda Bustos MD Primary care physician: Physician Nonstaff Hospital Course: Discharge Diagnosis: Acute recurrent pancreatitis, unclear etiology Leukocytosis Prerenal azotemia Malignant hypertension Lactic acidosis Hospital Course: 57-year-old male with history of recurrent pancreatitis presenting with acute abdominal pain. He claims that his pain started last night, epigastric, 10/10, nonradiating, associated with nausea and vomiting. He claims that he has been having recurrent tachycardias for the last 4 years, has been worked up at [facility], however no etiology has been found. He does follow up with GI as well. He denies any smoking, alcohol, or illicit drug use.In the ED, temperature was 98, pulse 76, respiratory rate 18, blood pressure 186/103, saturating at 99%. WBC 11.5, BUN 21, creatinine 0.96, lactic acid 2.2, lipase greater than 20,000. EKG personally interpreted, shows sinus rhythm. Patient is admitted for acute pancreatitis. Pain improved with IV fluids. Labs improved as well. Patient able to tolerate oral intake. Patient to see his PCP and GI. Patient seen and examined at bedside. Vital signs reviewed and stable. General: nontoxic, no distress, appears at stated age Derm: warm, dry Head: atraumatic, normocephalic, symmetric Eyes: EOMI, no lid lag, anicteric sclera Mouth: no lip lesion, mucus membranes moist Cardiovascular: S1S2 reg, no murmur Lungs: CTA bilateral, no rhonchi, no rales , no accessory muscle use Abdominal: soft, nontender to palpation, no guarding, no appreciable organomegaly Ext: no gross muscle atrophy, no edema, no contractures Neuro: CN II-XI grossly intact, no focal neuro deficits Psych: Alert, oriented, appropriate affect A total of 33 minutes of time were spent preparing this complex discharge summary. Patient was discharged on 12/28/22 at 12:45. Patient Condition at Discharge: Stable Plan - Discharge Summary New Discharge Prescriptions: New Acetaminophen Tab [Tylenol] 650 mg PO Q6HR PRN tab PRN Reason: Mild Pain Or Fever > 100.5 Discharge Medication List Acetaminophen Tab [Tylenol] 650 mg PO Q6HR PRN tab 12/28/22 [Rx] Follow up Appointment(s)/Referral(s): Nonstaff,Physician [Primary Care Provider] - 1-2 days Patient Instructions/Handouts: Pancreatitis (DC) Activity/Diet/Wound Care/Special Instructions: Please see your PCP and GI. Discharge Disposition: HOME SELF-CARE
== END 2022-12-28 13:48 | disposition home or self-care (01) ==
LOC: EC 02:55 → INTOOBSV 06:06 → 5NMEDONC 06:06 → 6NMEDSUR 06:24
PROVIDERS: ADMIT Internal Medicine; ATTEND Internal Medicine
DX: K85.90 Acute pancreatitis without necrosis or infection, unspecified (principal); E87.20 Acidosis, unspecified; I10 Essential (primary) hypertension; R79.89 Other specified abnormal findings of blood chemistry; M24.19 Other articular cartilage disorders, other specified site; Z90.49 Acquired absence of other specified parts of digestive tract; Z90.5 Acquired absence of kidney; Z87.891 Personal history of nicotine dependence; Z98.890 Other specified postprocedural states; Z82.5 Family history of asthma and other chronic lower respiratory diseases; Z82.3 Family history of stroke; Z81.2 Family history of tobacco abuse and dependence
CPT/HCPCS: 96376 ×3; 96361 ×2; 96375 ×2; 96374; 99285; 36415; 93005; 80053; 80048; 82150; 83605; 83690; 85025 ×2; 81003; G0378; J2270; J2405; J1170 ×2; C9113 ×2

== ENCOUNTER 2023-10-05 22:05 | Inpatient (IN) | payer BC ==
--- NOTE | 2023-10-05 22:27 | ED ---
General Adult HPI - General Stated complaint: Pancreatitis Time Seen by Provider: 10/05/23 22:27 Source: patient Mode of arrival: ambulatory Limitations: no limitations - History of Present Illness Initial comments: 57-year-old male with history of pancreatitis presenting with chief complaint of epigastric pain. Patient has been experiencing dull epigastric pain for few days, but states that today the pain substantially increased. This feels similar to previous pancreatitis flareups. Admits to some nausea no vomiting. Patient has history of cholecystectomy, he has had previous extensive workups to determine the cause of his recurrent pancreatitis, and follows at [facility]. Denies chest pain, difficulty breathing, diarrhea, hematochezia, melena, fever, chills. - Related Data Previous Rx's Medication Instructions Recorded Acetaminophen Tab [Tylenol] 650 mg PO Q6HR PRN tab 12/28/22 Allergies Allergy/AdvReac Type Severity Reaction Status Date / Time No Known Allergies Allergy Verified 10/05/23 23:07 Review of Systems ROS Statement: Those systems with pertinent positive or pertinent negative responses have been documented in the HPI. ROS Other: All systems not noted in ROS Statement are negative. Past Medical History Past Medical History: Pneumonia Additional Past Medical History / Comment(s): bronchial pneumonia, 08/13/18 pa ncreatitis ( 4 times ), bilateral knees worn cartlidge-receives injections. History of Any Multi-Drug Resistant Organisms: None Reported Past Surgical History: Cholecystectomy, Orthopedic Surgery Additional Past Surgical History / Comment(s): L nephrectomy (donor), L knee surgery for meniscus tear, L thumb injury with tendon repair, colonoscopy, bilateral eye lasik surgery for vision correcti Past Anesthesia/Blood Transfusion Reactions: No Reported Reaction Past Psychological History: No Psychological Hx Reported Smoking Status: Former smoker Past Alcohol Use History: None Reported Past Drug Use History: None Reported - Past Family History Father Family Medical History: COPD Additional Family Medical History / Comment(s): Father lived to be 89yrs old. He was a smoker. Mother Family Medical History: CVA/TIA Additional Family Medical History / Comment(s): Mother has heart issues and CVA. She is 89yrs old. General Exam - General Exam Comments Initial Comments: Visual Physical Exam Vital signs reviewed General: Well-appearing, nontoxic, no acute distress. Head: Normocephalic, atraumatic Eyes: PERRLA, EOMI ENT: Airway patent Chest: Nonlabored breathing Skin: No visual rash, normal skin tone Neuro: Alert and oriented 3 Musculoskeletal: No gross abnormalities Limitations: no limitations General appearance: alert, in no apparent distress Head exam: Present: atraumatic, normocephalic Eye exam: Present: normal appearance Neck exam: Present: normal inspection Respiratory exam: Present: normal lung sounds bilaterally. Absent: respiratory distress, wheezes, rales, rhonchi, stridor Cardiovascular Exam: Present: regular rate, normal rhythm, normal heart sounds. Absent: systolic murmur, diastolic murmur, rubs, gallop, clicks GI/Abdominal exam: Present: soft, tenderness. Absent: distended, guarding, rebound, rigid Neurological exam: Present: alert, oriented X3 Psychiatric exam: Present: normal affect, normal mood Skin exam: Present: warm, dry Course Vital Signs 10/05/23 23:03 Temperature 98.7 F Pulse Rate 77 Respiratory 20 Rate Blood Pressure 162/81 O2 Sat by Pulse 99 Oximetry Medical Decision Making - Medical Decision Making Was pt. sent in by a medical professional or institution (, PA, QUALITY CONTROL ANALYST, urgent care, hospital, or chcf...) When possible be specific @ -No Did you speak to anyone other than the patient for history (EMS, parent, family, police, friend...)? What history was obtained from this source @ -No Did you review nursing and triage notes (agree or disagree)? Why? @ -I reviewed and agree with nursing and triage notes Were old charts reviewed (outside hosp., previous admission, EMS record, old EKG, old radiological studies, urgent care reports/EKG's, chcf records)? Report findings @ -Previous visits reviewed Differential Diagnosis (chest pain, altered mental status, abdominal pain women, abdominal pain men, vaginal bleeding, weakness, fever, dyspnea, syncope, headache, dizziness, GI bleed, back pain, seizure, CVA, palpatations, mental health, musculoskeletal)? @ -[facility] Differential Abdominal Pain Men: Appendicitis, cholecystitis, diverticulosis, ischemic bowel, pancreatitis, hepatitis, UTI, gastroenteritis, AAA, incarcerated hernia, bowel obstruction, constipation, inflammatory bowel, hepatitis, peptic ulcer disease, splenic infarction, perforated viscus, testicular torsion... This is not meant to be an all-inclusive list EKG interpreted by me (3pts min.). @ -As above X-rays interpreted by me (1pt min.). @ -None done CT interpreted by me (1pt min.). @ -None done U/S interpreted by me (1pt. min.). @ -None done What testing was considered but not performed or refused? (CT, X-rays, U/S, labs)? Why? @ -CT was considered, however patient has had multiple episodes of pancreatitis in the past and has received extensive workup. He has history of cholecystectomy so no reason to suspect a gallstone pancreatitis. What meds were considered but not given or refused? Why? @ -None Did you discuss the management of the patient with other professionals (professionals i.e. , PA, QUALITY CONTROL ANALYST, lab, RT, psych nurse, social welfare administrator, side stitching machine operator, teacher, chairman & chief executive officer, rn field case manager)? Give summary @ -My attending spoke with the [facility] provider on-call who accepted admission Was smoking cessation discussed for >3mins.? @ -No Was critical care preformed (if so, how long)? @ -No Were there social determinants of health that impacted care today? How? (Homelessness, low income, unemployed, alcoholism, drug addiction, transpo rtation, low edu. Level, literacy, decrease access to med. care, snf, rehab)? @ -No Was there de-escalation of care discussed even if they declined (Discuss DNR or withdrawal of care, Hospice)? DNR status @ -No What co-morbidities impacted this encounter? (DM, HTN, Smoking, COPD, CAD, Cancer, CVA, ARF, Chemo, Hep., AIDS, mental health diagnosis, sleep apnea, morbid obesity)? @ -None Was patient admitted / discharged? Hospital course, mention meds given and route, prescriptions, significant lab abnormalities, going to OR and other pertinent info. @ -57-year-old male with history of pancreatitis presenting with chief complaint of epigastric pain. He suspects this is a pancreatitis flareup. Workup is initiated by triage. WBC 14.2. Amylase 4468 and lipase greater than 20,000. Patient is placed in a room where the physical exam is conducted. He is started on fluids and IV pain and nausea medications. He will be admitted. Patient is agreeable with this plan. I discussed this case with my attending Dr. Vega Undiagnosed new problem with uncertain prognosis? @ -No Drug Therapy requiring intensive monitoring for toxicity (Heparin, Nitro, Insulin, Cardizem)? @ -No Were any procedures done? @ -No Diagnosis/symptom? @ -Pancreatitis Acute, or Chronic, or Acute on Chronic? @ -Acute on chronic Uncomplicated (without systemic symptoms) or Complicated (systemic symptoms)? @ -Complicated Side effects of treatment? @ -No Exacerbation, Progression, or Severe Exacerbation? @ -No Poses a threat to life or bodily function? How? (Chest pain, USA, LA, pneumonia, PE, COPD, DKA, ARF, appy, cholecystitis, CVA, Diverticulitis, Homicidal, Suicidal, threat to staff... and all critical care pts) @ -Yes - Lab Data Result diagrams: 10/05/23 23:11 10/05/23 23:11 Lab Results 10/05/23 10/05/23 10/05/23 Range/Units 23:11 23:11 23:11 WBC 14.2 H (3.8-10.6) k/uL RBC 5.34 (4.30-5.90) m/uL Hgb 16.4 (13.0-17.5) gm/dL Hct 47.9 (39.0-53.0) % MCV 89.7 (80.0-100.0) fL MCH 30.7 (25.0-35.0) pg MCHC 34.2 (31.0-37.0) g/dL RDW 12.1 (11.5-15.5) % Plt Count 316 (150-450) k/uL MPV 6.8 Neutrophils % 73 % Lymphocytes % 16 % Monocytes % 7 % Eosinophils % 3 % Basophils % 1 % Neutrophils # 10.3 H (1.3-7.7) k/uL Lymphocytes # 2.2 (1.0-4.8) k/uL Monocytes # 1.0 (0-1.0) k/uL Eosinophils # 0.4 (0-0.7) k/uL Basophils # 0.1 (0-0.2) k/uL Sodium 138 (137-145) mmol/L Potassium 4.3 (3.5-5.1) mmol/L Chloride 102 (98-107) mmol/L Carbon Dioxide 30 (22-30) mmol/L Anion Gap 6 mmol/L BUN 20 (9-20) mg/dL Creatinine 0.93 (0.66-1.25) mg/dL Est GFR (CKD-EPI)AfAm >90 (>60 ml/min/1.73 sqM) Est GFR (CKD-EPI)NonAf >90 (>60 ml/min/1.73 sqM) Glucose 90 (74-99) mg/dL Plasma Lactic Acid Tenzin (0.7-2.0) mmol/L Calcium 9.3 (8.4-10.2) mg/dL Total Bilirubin 0.8 (0.2-1.3) mg/dL AST 34 (17-59) U/L ALT 31 (4-49) U/L Alkaline Phosphatase 100 (38-126) U/L Total Protein 7.5 (6.3-8.2) g/dL Albumin 4.4 (3.5-5.0) g/dL Amylase 4468 H* (30-110) U/L Lipase >27987 H (23-300) U/L Urine Color Light Yellow Urine Appearance Clear (Clear) Urine pH 6.0 (5.0-8.0) Ur Specific [place] 1.015 (1.001-1.035) Urine Protein Negative (Negative) Urine Glucose (UA) Negative (Negative) Urine Ketones Negative (Negative) Urine Blood Negative (Negative) Urine Nitrite Negative (Negative) Urine Bilirubin Negative (Negative) Urine Urobilinogen <2.0 (<2.0) mg/dL Ur Leukocyte Esterase Negative (Negative) 10/05/23 Range/Units 23:11 WBC (3.8-10.6) k/uL RBC (4.30-5.90) m/uL Hgb (13.0-17.5) gm/dL Hct (39.0-53.0) % MCV (80.0-100.0) fL MCH (25.0-35.0) pg MCHC (31.0-37.0) g/dL RDW (11.5-15.5) % Plt Count (150-450) k/uL MPV Neutrophils % % Lymphocytes % % Monocytes % % Eosinophils % % Basophils % % Neutrophils # (1.3-7.7) k/uL Lymphocytes # (1.0-4.8) k/uL Monocytes # (0-1.0) k/uL Eosinophils # (0-0.7) k/uL Basophils # (0-0.2) k/uL Sodium (137-145) mmol/L Potassium (3.5-5.1) mmol/L Chloride (98-107) mmol/L Carbon Dioxide (22-30) mmol/L Anion Gap mmol/L BUN (9-20) mg/dL Creatinine (0.66-1.25) mg/dL Est GFR (CKD-EPI)AfAm (>60 ml/min/1.73 sqM) Est GFR (CKD-EPI)NonAf (>60 ml/min/1.73 sqM) Glucose (74-99) mg/dL Plasma Lactic Acid Tenzin 0.8 (0.7-2.0) mmol/L Calcium (8.4-10.2) mg/dL Total Bilirubin (0.2-1.3) mg/dL AST (17-59) U/L ALT (4-49) U/L Alkaline Phosphatase (38-126) U/L Total Protein (6.3-8.2) g/dL Albumin (3.5-5.0) g/dL Amylase (30-110) U/L Lipase (23-300) U/L Urine Color Urine Appearance (Clear) Urine pH (5.0-8.0) Ur Specific [place] (1.001-1.035) Urine Protein (Negative) Urine Glucose (UA) (Negative) Urine Ketones (Negative) Urine Blood (Negative) Urine Nitrite (Negative) Urine Bilirubin (Negative) Urine Urobilinogen (<2.0) mg/dL Ur Leukocyte Esterase (Negative) Disposition Clinical Impression: Pancreatitis Disposition: ADMITTED IP TO THIS [facility] Condition: Fair Time of Disposition: 01:33
[2023-10-05 23:40] LABS: Basophils # (A) 0.1 k/uL (0-0.2); Basophils % (A) 1 %; Eosinophils # (A) 0.4 k/uL (0-0.7); Eosinophils % (A) 3 %; HCT 47.9 % (39.0-53.0); HGB 16.4 gm/dL (13.0-17.5); Lymphocytes # (A) 2.2 k/uL (1.0-4.8); Lymphocytes % (A) 16 %; MCH 30.7 pg (25.0-35.0); MCHC 34.2 g/dL (31.0-37.0); MCV 89.7 fL (80.0-100.0); Mean Platelet Volume 6.8; Monocytes % (A) 7 %; Neutrophils # (A) 10.3 k/uL (1.3-7.7); Neutrophils % (A) 73 %; Platelet Count 316 k/uL (150-450); RBC 5.34 m/uL (4.30-5.90); RDW 12.1 % (11.5-15.5); WBC 14.2 k/uL (3.8-10.6)
[2023-10-05 23:56] LABS: Appearance,Urine Clear (Clear); Bilirubin,Urine Negative (Negative); Blood,Urine Negative (Negative); Color,Urine Light Yellow; Glucose,Urine (UA) Negative (Negative); Ketones,Urine Negative (Negative); Leukocyte Esterase,Urine Negative (Negative); Nitrite,Urine Negative (Negative); Protein,Urine Negative (Negative); Specific Gravity,Urine 1.015 (1.001-1.035); Urobilinogen,Urine <2.0 mg/dL (<2.0)
[2023-10-06 01:14] LABS: ALT 31 U/L (4-49); AST 34 U/L (17-59); African American GFR (CKD) >90 (>60 ml/min/1.73 sqM); Albumin 4.4 g/dL (3.5-5.0); Alkaline Phosphatase 100 U/L (38-126); Anion Gap 6 mmol/L; Blood Urea Nitrogen 20 mg/dL (9-20); Calcium 9.3 mg/dL (8.4-10.2); Carbon Dioxide 30 mmol/L (22-30); Chloride 102 mmol/L (98-107); Glucose 90 mg/dL (74-99); Non-African American GFR(CKD) >90 (>60 ml/min/1.73 sqM); Potassium 4.3 mmol/L (3.5-5.1); Sodium 138 mmol/L (137-145); Total Bilirubin 0.8 mg/dL (0.2-1.3); Total Protein 7.5 g/dL (6.3-8.2)
[2023-10-06 01:15] LABS: Amylase 4468 U/L (30-110)
[2023-10-06 01:16] LABS: Lipase >20000 U/L (23-300)
[2023-10-06] MEDS ORDERED: NALOXONE 0.4 MG/ML 1 ML VIAL IV PRN (01:22)
[2023-10-06] MEDS: HYDROmorphone 1 MG/ML 1 ML SYRINGE IVP STA (02:16)
[2023-10-06] MEDS: SODIUM CHLORIDE 0.9% 2,000 ML IV ONE ×2 (02:17→07:34)
[2023-10-06] MEDS: ONDANSETRON 4 MG/2 ML VIAL IVP STA (02:17)
[2023-10-06] MEDS: SODIUM CHLORIDE 0.9% 1,000 ML IV SCH (02:17)
[2023-10-06] MEDS: KETOROLAC 15 MG/ML 1 ML VIAL IVP PRN (03:12)
[2023-10-06] MEDS: HYDROmorphone 1 MG/ML 1 ML SYRINGE IVP PRN (03:12)
[2023-10-06 11:48] LABS: ALT 282 U/L (4-49); AST 469 U/L (17-59); African American GFR (CKD) >90 (>60 ml/min/1.73 sqM); Albumin/Globulin Ratio 1.2; Alkaline Phosphatase 131 U/L (38-126); Anion Gap 2 mmol/L; Blood Urea Nitrogen 19 mg/dL (9-20); Calcium 8.1 mg/dL (8.4-10.2); Carbon Dioxide 26 mmol/L (22-30); Chloride 108 mmol/L (98-107); Globulin 2.6 g/dL; Glucose 87 mg/dL (74-99); Magnesium 1.9 mg/dL (1.6-2.3); Non-African American GFR(CKD) >90 (>60 ml/min/1.73 sqM); Potassium 4.1 mmol/L (3.5-5.1); Sodium 136 mmol/L (137-145); Total Bilirubin 1.9 mg/dL (0.2-1.3); Total Protein 5.6 g/dL (6.3-8.2)
[2023-10-06 11:59] LABS: Basophils # (A) 0.1 k/uL (0-0.2); Basophils % (A) 1 %; Eosinophils # (A) 0.2 k/uL (0-0.7); Eosinophils % (A) 2 %; HGB 13.5 gm/dL (13.0-17.5); Lymphocytes # (A) 1.2 k/uL (1.0-4.8); Lymphocytes % (A) 16 %; MCH 30.7 pg (25.0-35.0); MCHC 33.8 g/dL (31.0-37.0); MCV 90.8 fL (80.0-100.0); Mean Platelet Volume 7.2; Monocytes # (A) 0.6 k/uL (0-1.0); Monocytes % (A) 9 %; Neutrophils # (A) 5.1 k/uL (1.3-7.7); Neutrophils % (A) 71 %; Platelet Count 240 k/uL (150-450); RBC 4.41 m/uL (4.30-5.90); RDW 12.2 % (11.5-15.5); WBC 7.2 k/uL (3.8-10.6)
[2023-10-06 12:12] LABS: Amylase 1915 U/L (30-110)
[2023-10-06 12:43] LABS: Lipase 8282 U/L (23-300)
[2023-10-06] MEDS ORDERED: ALBUTEROL NEBULIZED 2.5 MG/3 ML INHALATION PRN (16:01)
[2023-10-06] MEDS ORDERED: IOPAMIDOL CONTRAST (ORAL USE) VIAL PO PRN (16:03)
--- NOTE | 2023-10-06 16:06 | P.HPIM ---
History of Present Illness H&P Date: 10/06/23 This is a pleasant 57-year-old male who presented to the emergency department last night with increased epigastric abdominal pain with feeling of fullness and bloating and has had multiple episodes of pancreatitis in the past and has followed up at [facility]. Patient did have increased nausea with inability to tolerate oral intake and denies vomiting. Patient follows with [facility] in the outpatient setting with a past medical history of pancreatitis 4 times, former smoker. Labs reviewed in the ER initially with a white count of 14.2 hemoglobin was stable, platelets were 316, sodium 138, potassium 4.3, creatinine 0.93, magnesium 1.9, liver functions within normal l imits, amylase 4468 and lipase over 20,000. Urinalysis was negative. Patient was admitted for acute pancreatitis and started on IV hydration as well as pain management. Patient is n.p.o. and will follow-up with repeat labs REVIEW OF SYSTEMS: CONSTITUTIONAL: No fever, no malaise, no fatigue. HEENT: No recent visual problems or hearing problems. Denied any sore throat. CARDIOVASCULAR: No chest pain, orthopnea, PND, no palpitations, no syncope. PULMONARY: No shortness of breath, no cough, no hemoptysis. GASTROINTESTINAL: No diarrhea, reports some nausea, denies vomiting, reports severe abdominal pain. NEUROLOGICAL: No headaches, no weakness, no numbness. HEMATOLOGICAL: Denies any bleeding or petechiae. GENITOURINARY: Denies any burning micturition, frequency, or urgency. MUSCULOSKELETAL/RHEUMATOLOGICAL: Denies any joint pain, swelling, or any muscle pain. ENDOCRINE: Denies any polyuria or polydipsia. The rest of the 14-point review of systems is negative. PHYSICAL EXAMINATION: GENERAL: The patient is alert and oriented x3. Well developed, well nourished. HEENT: Pupils are round and equally reacting to light. EOMI. No scleral icterus. No conjunctival pallor. Normocephalic, atraumatic. No pharyngeal erythema. No thyromegaly. CARDIOVASCULAR: S1 and S2 present. No murmurs, rubs, or gallops. PULMONARY: Chest is clear to auscultation, no wheezing or crackles. ABDOMEN: Soft, mildly tender in the epigastric region, somewhat distended, normoactive bowel sounds. No palpable organomegaly. MUSCULOSKELETAL: No joint swelling or deformity. EXTREMITIES: No cyanosis, clubbing, or pedal edema. NEUROLOGICAL: Gross neurological examination did not reveal any focal deficits. SKIN: No rashes. Assessment: Abdominal pain with acute pancreatitis, lipase over 20,000 and amylase 4468 Leukocytosis, secondary to above, improved History of cholecystectomy Transaminitis History of bronchial pneumonia Former smoker History of pancreatitis x 4 follows with [facility] outpatient GI prophylaxis DVT prophylaxis Full code Plan: Will continue on gentle IV hydration and n.p.o. for now as patient is continuing to report abdominal pain and discomfort Continue Protonix twice daily and will follow-up on repeat labs A.m. labs pending although finally resulted this afternoon with increase in LFTs noted and will consult general surgery and appreciate input and recommendations as there is no GI coverage at this time Follow-up on repeat labs in the a.m. CT abdomen ordered and pending Given patient's continued symptoms, patient will require more than 2 night hospitalization The impression and plan of care has been dictated by Kaylyn Srivastava, Nurse Practitioner as directed. Dr. Vanessa MD I have performed a history and examination and MDM of this patient, discussed the same with the dictator, and agree with the dictator's assessment and plan as written ,documented as a scribe. Based on total visit time, I have performed more than 50% of the visit. Past Medical History Past Medical History: Pneumonia Additional Past Medical History / Comment(s): bronchial pneumonia, 08/13/18 pancreatitis ( 4 times ), bilateral knees worn cartlidge-receives injections. History of Any Multi-Drug Resistant Organisms: None Reported Past Surgical History: Cholecystectomy, Orthopedic Surgery Additional Past Surgical History / Comment(s): L nephrectomy (donor), L knee surgery for meniscus tear, L thumb injury with tendon repair, colonoscopy, bilateral eye lasik surgery for vision correcti Past Anesthesia/Blood Transfusion Reactions: No Reported Reaction Past Psychological History: No Psychological Hx Reported Smoking Status: Former smoker Past Alcohol Use History: None Reported Past Drug Use History: None Reported - Past Family History Father Family Medical History: COPD Additional Family Medical History / Comment(s): Father lived to be 89yrs old. He was a smoker. Mother Family Medical History: CVA/TIA Additional Family Medical History / Comment(s): Mother has heart issues and CVA. She is 89yrs old. Medications and Allergies Home Medications Medication Instructions Recorded Confirmed Type Acetaminophen Tab [Tylenol] 650 mg PO Q6HR PRN tab 12/28/22 10/06/23 Rx Albuterol Sulfate [Albuterol 2 puff PO RT-Q6H PRN 10/06/23 10/06/23 History Sulfate Hfa] Allergies Allergy/AdvReac Type Severity Reaction Status Date / Time No Known Allergies Allergy Verified 10/06/23 07:34 Physical Exam Vitals: Vital Signs Temp Pulse Resp BP Pulse Ox 10/06/23 06:12 97.6 F 56 L 16 120/71 98 10/05/23 23:03 98.7 F 77 20 162/81 99 Intake and Output 10/05/23 10/06/23 10/06/23 22:59 06:59 14:59 Other: Weight 90.718 kg Results CBC & Chem 7: 10/06/23 10:55 10/06/23 10:55 Labs: Abnormal Lab Results - Last 24 Hours (Table) 10/05/23 10/05/23 Range/Units 23:11 23:11 WBC 14.2 H (3.8-10.6) k/uL Neutrophils # 10.3 H (1.3-7.7) k/uL Amylase 4468 H* (30-110) U/L Lipase >70840 H (23-300) U/L Thrombosis Risk Factor Assmnt - DVT/VTE Prophylaxis DVT/VTE Prophylaxis: Mechanical Prophylaxis ordered Assessment and Plan Time with Patient: Greater than 30
[2023-10-06] MEDS: ONDANSETRON 4 MG/2 ML VIAL IVP PRN (16:36)
[2023-10-06] MEDS: PANTOPRAZOLE 40 MG/10 ML VIAL IVP SCH (17:38)
--- NOTE | 2023-10-06 18:23 | CT ---
EXAMINATION TYPE: CT abdomen wo con CT DLP: 473 mGycm, Automated exposure control for dose reduction was used. DATE OF EXAM: 10/06/2023 5:30 PM COMPARISON: [id number] CLINICAL INDICATION:Male, 57 years old with history of elevated liver enzymes; elevated liver enzymes . Pancreatitis TECHNIQUE: Axial CT abdomen wo con;Sagittal and coronal reformats were created on a separate worksta tion. Contrast used: mL of , (none if empty) Oral contrast used: with Oral Contrast (none if empty) FINDINGS: LOWER CHEST: Unremarkable ABDOMEN LIVER: No dilated ducts, masses or cystic structures. GALLBLADDER AND BILE DUCTS: Gallbladder surgically absent. PANCREAS: No evidence for mass, dilated duct or adjacent inflammation. SPLEEN: Unremarkable. ADRENAL GLANDS: Unremarkable. KIDNEYS AND URETERS: No left kidney is surgically absent. Right kidney is without evidence for hydron ephrosis or kyphosis. No suspicious mass. PELVIS BLADDER: Unremarkable REPRODUCTIVE: Unremarkable. ABDOMEN & PELVIS STOMACH AND BOWEL: No evidence of bowel obstruction. PERITONEUM/RETROPERITONEUM: No evidence of pneumoperitoneum or free fluid. VASCULATURE: No evidence of aortic aneurysm. MUSCULOSKELETAL: No acute osseous abnormalities LYMPH NODES: No gross evidence for lymphadenopathy. SOFT TISSUE/ABDOMINAL WALL: Unremarkable IMPRESSION: 1. No evidence for acute process. The liver appears within normal limits. 2. No evidence for pancreatitis.
[2023-10-07 05:21] VITALS: RESP 16
[2023-10-07 10:27] LABS: Basophils # (A) 0.08 X 10*3/uL (0.00-0.10); Basophils % (A) 0.9 %; Eosinophils # (A) 0.35 X 10*3/uL (0.04-0.35); Eosinophils % (A) 3.7 %; HCT 41.7 % (39.6-50.0); HGB 14.1 g/dL (13.0-17.0); Lymphocytes # (A) 1.04 X 10*3/uL (0.90-5.00); Lymphocytes % (A) 11.1 %; MCH 30.2 pg (27.0-32.0); MCHC 33.8 g/dL (32.0-37.0); MCV 89.3 FL (80.0-97.0); Mean Platelet Volume 9.4 FL (9.5-12.2); Monocytes # (A) 0.89 X 10*3/uL (0.20-1.00); Monocytes % (A) 9.5 %; NRBC Per 100 WBC 0 X 10*3/uL (0.00-0.01); Neutrophils # (A) 6.95 X 10*3/uL (1.80-7.70); Neutrophils % (A) 73.8 %; Platelet Count 251 X 10*3/uL (140-440); RBC 4.67 X 10*6/uL (4.40-5.60)
[2023-10-07 11:52] LABS: ALT 350 U/L (10-49); AST 253 U/L (14-35); Albumin 3.4 g/dL (3.8-4.9); Albumin/Globulin Ratio 1.55 Ratio (1.60-3.17); Alkaline Phosphatase 189 U/L (41-126); BUN/Creat Ratio 16.89 Ratio (12.00-20.00); Blood Urea Nitrogen 15.2 mg/dL (9.0-27.0); Calcium 8.6 mg/dL (8.7-10.3); Carbon Dioxide 23.9 mmol/L (21.6-31.8); Chloride 103 mmol/L (96-109); Globulin 2.2 g/dL (1.6-3.3); Glucose 71 mg/dL (70-110); Magnesium 1.8 mg/dL (1.5-2.4); Potassium 4.4 mmol/L (3.5-5.5); Sodium 137 mmol/L (135-145); Total Bilirubin 1.1 mg/dL (0.3-1.2); Total Protein 5.6 g/dL (6.2-8.2)
[2023-10-07 12:03] LABS: Lipase 1661 U/L (14-60)
[2023-10-07 12:06] LABS: Amylase 1258 U/L (23-121)
--- NOTE | 2023-10-07 12:13 | P.GSCN ---
History of Present Illness Consult date: 10/07/23 Reason for Consult: Pancreatitis, recurrent, s/p remote lap cholecystectomy Requesting physician: Alex Spencer History of present illness: The patient was admitted with epigastric pain. He had a normal CT of abdomen, elevated amylase and lipase. Initial LFTs were normal and then jumped up on the next draw. This same pattern happened with an episode of pancreatits in Jun 2021. He had a lap sanna for sludge in about 2019. He had pancreatitis again after the lap sanna and has seen GI at [facility]. He had 2 MRCP at [facility] with the last one being in May 2022. He believes the last MRCP was normal based on a tele visit with his [facility] GI. He believes the pancreatitis is releated to recent Covid + and rx for URI with antibiotic and steroids. Past Medical History Past Medical History: Hypertension, Osteoarthritis (OA), Pneumonia, Skin Disorder Additional Past Medical History / Comment(s): bronchial pneumonia, 08/13/18 pancreatitis (12 times, on and off for past 4 years), bilateral knees worn cartlidge-receives injections, psoriasis, History of Any Multi-Drug Resistant Organisms: None Reported Past Surgical History: Cholecystectomy, Orthopedic Surgery Additional Past Surgical History / Comment(s): L nephrectomy (donor), L knee surgery for meniscus tear, L thumb injury with tendon repair, colonoscopy, bilateral eye lasik surgery for vision correcti Past Anesthesia/Blood Transfusion Reactions: No Reported Reaction Smoking Status: Former smoker - Past Family History Father Family Medical History: COPD Additional Family Medical History / Comment(s): Father lived to be 89yrs old. He was a smoker. Mother Family Medical History: CVA/TIA Additional Family Medical History / Comment(s): Mother has heart issues and CVA. She is 89yrs old. Medications and Allergies Home Medications Medication Instructions Recorded Confirmed Type Acetaminophen Tab [Tylenol] 650 mg PO Q6HR PRN tab 12/28/22 10/06/23 Rx Albuterol Sulfate [Albuterol 2 puff PO RT-Q6H PRN 10/06/23 10/06/23 History Sulfate Hfa] Allergies Allergy/AdvReac Type Severity Reaction Status Date / Time No Known Allergies Allergy Verified 10/06/23 07:34 Surgical - Exam Vital Signs Temp Pulse Resp BP Pulse Ox 98.7 F 77 20 162/81 99 10/05/23 23:03 10/05/23 23:03 10/05/23 23:03 10/05/23 23:03 10/05/23 23:03 - General well nourished, no distress - Abdomen Abdomen: soft, non tender Results - Labs 10/07/23 06:16 10/07/23 06:16 Abnormal Lab Results - Last 24 Hours (Table) 10/06/23 10/07/23 10/07/23 Range/Units 10:55 06:16 06:16 MPV 9.4 L (9.5-12.2) FL Immature Gran # 0.09 H (0.00-0.04) X 10*3/uL Sodium 136 L (137-145) mmol/L Chloride 108 H (98-107) mmol/L Calcium 8.1 L 8.6 L (8.4-10.2) mg/dL Total Bilirubin 1.9 H (0.2-1.3) mg/dL AST 469 H 253 H (17-59) U/L ALT 282 H 350 H (4-49) U/L Alkaline Phosphatase 131 H 189 H (38-126) U/L Total Protein 5.6 L 5.6 L (6.3-8.2) g/dL Albumin 3.0 L 3.4 L (3.5-5.0) g/dL Albumin/Globulin Ratio 1.55 L (1.60-3.17) Ratio Amylase 1915 H* (30-110) U/L Lipase 8282 H (23-300) U/L Diabetes panel 10/06/23 10/07/23 Range/Units 10:55 06:16 Sodium 136 L 137 (137-145) mmol/L Potassium 4.1 4.4 (3.5-5.1) mmol/L Chloride 108 H 103 (98-107) mmol/L Carbon Dioxide 26 23.9 (22-30) mmol/L BUN 19 15.2 (9-20) mg/dL Creatinine 0.75 0.9 (0.66-1.25) mg/dL Glucose 87 71 (74-99) mg/dL Calcium 8.1 L 8.6 L (8.4-10.2) mg/dL AST 469 H 253 H (17-59) U/L ALT 282 H 350 H (4-49) U/L Alkaline Phosphatase 131 H 189 H (38-126) U/L Total Protein 5.6 L 5.6 L (6.3-8.2) g/dL Albumin 3.0 L 3.4 L (3.5-5.0) g/dL Calcium panel 10/06/23 10/07/23 Range/Units 10:55 06:16 Calcium 8.1 L 8.6 L (8.4-10.2) mg/dL Albumin 3.0 L 3.4 L (3.5-5.0) g/dL Pituitary panel 10/06/23 10/07/23 Range/Units 10:55 06:16 Sodium 136 L 137 (137-145) mmol/L Potassium 4.1 4.4 (3.5-5.1) mmol/L Chloride 108 H 103 (98-107) mmol/L Carbon Dioxide 26 23.9 (22-30) mmol/L BUN 19 15.2 (9-20) mg/dL Creatinine 0.75 0.9 (0.66-1.25) mg/dL Glucose 87 71 (74-99) mg/dL Calcium 8.1 L 8.6 L (8.4-10.2) mg/dL Adrenal panel 10/06/23 10/07/23 Range/Units 10:55 06:16 Sodium 136 L 137 (137-145) mmol/L Potassium 4.1 4.4 (3.5-5.1) mmol/L Chloride 108 H 103 (98-107) mmol/L Carbon Dioxide 26 23.9 (22-30) mmol/L BUN 19 15.2 (9-20) mg/dL Creatinine 0.75 0.9 (0.66-1.25) mg/dL Glucose 87 71 (74-99) mg/dL Calcium 8.1 L 8.6 L (8.4-10.2) mg/dL Total Bilirubin 1.9 H 1.1 (0.2-1.3) mg/dL AST 469 H 253 H (17-59) U/L ALT 282 H 350 H (4-49) U/L Alkaline Phosphatase 131 H 189 H (38-126) U/L Total Protein 5.6 L 5.6 L (6.3-8.2) g/dL Albumin 3.0 L 3.4 L (3.5-5.0) g/dL Assessment and Plan Assessment: Recurrent pancreatitis, s/p lap sanna in a non drinker. He is unaware of triglyceride level. With increase in LFTs and pancreas enyzmes, concern exists for CBD abnormalitiy such a stone or sphincter of Oddi stenosis. Since he had a presumably normal MRCP after a similar episode, the next step might be ERCP and eval for sphincter of Oddi stenosis. I will order an US of bile duct and MRCP should be done if CBD is quite large, > 9 or 10 mm, last size I saw was 7 mm. He should follow up with GI to decide on approach for bile duct and sphincter evaluation. Time with Patient: Less than 30
--- NOTE | 2023-10-07 14:34 | US ---
EXAMINATION TYPE: US liver DATE OF EXAM: 10/07/2023 COMPARISON: 07/10/2021 CLINICAL INDICATION: Male, 57 years old with history of measure CBD; Pancreatitis, cholecystectomy TECHNIQUE: Multiple sonographic images of the right upper quadrant are obtained. FINDINGS: EXAM MEASUREMENTS: Liver Length: 18.2 cm Gallbladder Wall: Surgically absent CBD: 0.5 cm Right Kidney: 12.2 x 5.5 x 5.4 cm [employer] NOTES: Technical limitations due to large amount of overlying bowel gas Pancreas: Obscured by bowel gas Liver: appears wnl Gallbladder: Surgically absent Evidence for sonographic Robles's sign: no CBD: visualized portion appears wnl Right Kidney: no evidence of hydronephrosis IMPRESSION: No evidence for acute abdominal process.
--- NOTE | 2023-10-07 23:07 | P.PN ---
Subjective Progress Note Date: 10/07/23 This is a pleasant 57-year-old male who presented to the emergency department last night with increased epigastric abdominal pain with feeling of fullness and bloating and has had multiple episodes of pancreatitis in the past and has followed up at [facility]. Patient did have increased nausea with inability to tolerate oral intake and denies vomiting. Patient follows with Octaviano URIBE in the outpatient setting with a past medical history of pancreatitis 4 times, former smoker. Labs reviewed in the ER initially with a white count of 14.2 hemoglobin was stable, platelets were 316, sodium 138, potassium 4.3, creatinine 0.93, magnesium 1.9, liver functions within normal limits, amylase 4468 and lipase over 20,000. Urinalysis was negative. Patient was admitted for acute pancreatitis and started on IV hydration as well as pain management. Patient is n.p.o. and will follow-up with repeat labs 10/07/2023 Patient is evaluated today on the medical floor he does continue to report improvement in his abdominal pain he has been requesting ice chips. There is no GI service currently he was seen by the general surgeon today recommending a level ultrasound to assess for the bile duct. If this is dilated the patient is recommended to undergo MRCP. We are pending repeat labs monitoring for improvement in the LFTs and the amylase lipase. Review of Systems Constitutional: Denied any fatigue denied any fever. Cardio vascular: denied any chest pain, palpitations Gastrointestinal: denied any nausea, vomiting, diarrhea Pulmonary: Denied any shortness of breath cough Neurologic denied any new focal deficits All inpatient medications were reviewed and appropriate changes in these medications as dictated in the interval history and assessment and plan. REVIEW OF SYSTEMS: CONSTITUTIONAL: No fever, no malaise, no fatigue. HEENT: No recent visual problems or hearing problems. Denied any sore throat. CARDIOVASCULAR: No chest pain, orthopnea, PND, no palpitations, no syncope. PULMONARY: No shortness of breath, no cough, no hemoptysis. GASTROINTESTINAL: No diarrhea, reports some nausea, denies vomiting, reports severe abdominal pain. NEUROLOGICAL: No headaches, no weakness, no numbness. HEMATOLOGICAL: Denies any bleeding or petechiae. GENITOURINARY: Denies any burning micturition, frequency, or urgency. MUSCULOSKELETAL/RHEUMATOLOGICAL: Denies any joint pain, swelling, or any muscle pain. ENDOCRINE: Denies any polyuria or polydipsia. The rest of the 14-point review of systems is negative. PHYSICAL EXAMINATION: GENERAL: The patient is alert and oriented x3. Well developed, well nourished. HEENT: Pupils are round and equally reacting to light. EOMI. No scleral icterus. No conjunctival pallor. Normocephalic, atraumatic. No pharyngeal erythema. No thyromegaly. CARDIOVASCULAR: S1 and S2 present. No murmurs, rubs, or gallops. PULMONARY: Chest is clear to auscultation, no wheezing or crackles. ABDOMEN: Soft, mildly tender in the epigastric region, somewhat distended, normoactive bowel sounds. No palpable organomegaly. MUSCULOSKELETAL: No joint swelling or deformity. EXTREMITIES: No cyanosis, clubbing, or pedal edema. NEUROLOGICAL: Gross neurological examination did not reveal any focal deficits. SKIN: No rashes. Assessment: Abdominal pain with acute pancreatitis, lipase over 20,000 and amylase 4468 Leukocytosis, secondary to above, improved History of cholecystectomy Transaminitis History of bronchial pneumonia Former smoker History of pancreatitis x 4 follows with [facility] outpatient GI prophylaxis DVT prophylaxis Full code Plan: Will continue on gentle IV hydration and n.p.o. for now as patient is continuing to report abdominal pain and discomfort Continue Protonix twice daily and will follow-up on repeat labs A.m. labs pending although finally resulted this afternoon with increase in LFTs noted and will consult general surgery and appreciate input and recommendations as there is no GI coverage at this time Follow-up on repeat labs in the a.m. Stat liver US ordered needed to consider cholangitis Given patient's continued symptoms, patient will require more than 2 night hospitalization The impression and plan of care has been dictated by Toyin Whitney, Nurse Practitioner as directed. Dr. Vanessa MD I have performed a history and physical examination and medical decision making of this patient, discussed the same with the dictator, and agree with the dictators assessment and plan as written, documented as a scribe. Based on total visit time, I have performed more than 50% of this visit. Objective - Vital Signs Vital signs: Vital Signs Temp 98.7 F 10/07/23 13:42 Pulse 69 10/07/23 13:42 Resp 16 10/07/23 13:42 BP 168/85 10/07/23 13:42 Pulse Ox 97 02/17/24 13:42 FiO2 Intake & Output 10/06/23 10/07/23 10/07/23 18:59 06:59 18:59 Weight 90.718 kg Other: # Voids 2 4 - Labs CBC & Chem 7: 10/07/23 06:16 10/07/23 06:16 Labs: Abnormal Lab Results - Last 24 Hours (Table) 10/07/23 10/07/23 Range/Units 06:16 06:16 MPV 9.4 L (9.5-12.2) FL Immature Gran # 0.09 H (0.00-0.04) X 10*3/uL Calcium 8.6 L (8.7-10.3) mg/dL AST 253 H (14-35) U/L ALT 350 H (10-49) U/L Alkaline Phosphatase 189 H (41-126) U/L Total Protein 5.6 L (6.2-8.2) g/dL Albumin 3.4 L (3.8-4.9) g/dL Albumin/Globulin Ratio 1.55 L (1.60-3.17) Ratio Amylase 1258 A* (23-121) U/L Lipase 1661 H (14-60) U/L Assessment and Plan Time with Patient: Less than 30
[2023-10-08 02:28] VITALS: PULSE 71
[2023-10-08 09:04] VITALS: BP 157/76; TEMP 98.5
--- NOTE | 2023-10-08 09:31 | P.PN ---
Subjective Progress Note Date: 10/08/23 Patient states he feels much improved. Patient states he has had previous attacks of pancreatitis. He currently feels normal. He wants to go home. On exam vital signs appear stable. Abdomen soft. Patient is stable for discharge. He will follow-up with his certified nurse midwife at [facility]. Objective - Vital Signs Vital signs: Vital Signs Temp 98.5 F 10/08/23 07:00 Pulse 71 10/08/23 07:00 Resp 16 10/08/23 07:00 BP 157/76 10/08/23 07:00 Pulse Ox 96 10/08/23 07:00 FiO2 Intake & Output 10/07/23 10/08/23 10/08/23 18:59 06:59 18:59 Other: # Voids 4 2 # Bowel Movements 1 - Labs CBC & Chem 7: 10/07/23 06:16 10/07/23 06:16 Labs: Abnormal Lab Results - Last 24 Hours (Table) 10/07/23 10/07/23 Range/Units 06:16 06:16 MPV 9.4 L (9.5-12.2) FL Immature Gran # 0.09 H (0.00-0.04) X 10*3/uL Calcium 8.6 L (8.7-10.3) mg/dL AST 253 H (14-35) U/L ALT 350 H (10-49) U/L Alkaline Phosphatase 189 H (41-126) U/L Total Protein 5.6 L (6.2-8.2) g/dL Albumin 3.4 L (3.8-4.9) g/dL Albumin/Globulin Ratio 1.55 L (1.60-3.17) Ratio Amylase 1258 A* (23-121) U/L Lipase 1661 H (14-60) U/L
[2023-10-08 11:02] LABS: ALT 227 U/L (10-49); AST 103 U/L (14-35); Albumin 3.4 g/dL (3.8-4.9); Albumin/Globulin Ratio 1.42 Ratio (1.60-3.17); Alkaline Phosphatase 168 U/L (41-126); Amylase 528 U/L (23-121); BUN/Creat Ratio 11.33 Ratio (12.00-20.00); Blood Urea Nitrogen 10.2 mg/dL (9.0-27.0); Calcium 8.6 mg/dL (8.7-10.3); Carbon Dioxide 22.6 mmol/L (21.6-31.8); Chloride 100 mmol/L (96-109); Globulin 2.4 g/dL (1.6-3.3); Glucose 72 mg/dL (70-110); Lipase 638 U/L (14-60); Potassium 4.7 mmol/L (3.5-5.5); Sodium 134 mmol/L (135-145); Total Protein 5.8 g/dL (6.2-8.2)
--- NOTE | 2023-10-08 17:20 | P.DS ---
Providers Date of admission: 10/06/23 12:26 Attending physician: Alex Spencer Consults: 10/06/23 16:02 Consult Physician Urgent Consulting Provider: Al Munoz Consult Reason/Comments: acute pancreatitis with transaminitis Do you want consulting provider notified?: Yes Primary care physician: Octaviano Davalos [facility] Course: Final diagnosis Abdominal pain with acute pancreatitis, lipase over 20,000 and amylase 4468 Leukocytosis, secondary to above, improved History of cholecystectomy Transaminitis History of bronchial pneumonia Former smoker History of pancreatitis x 4 follows with [facility] outpatient Discharge disposition Patient is stable for discharge home to follow-up with his GI specialist out of [facility]. His amylase and lipase have improved pending downwards. He is only reporting mild generalized abdominal discomfort he is tolerating diet. He has been cleared by general surgery underwent liver ultrasound showing no ductal dilation. He will continue to increase his oral water intake once discharged home. Recommending to repeat labs in 2 to 3 days. Hospital course This is a pleasant 57-year-old male who presented to the emergency department last night with increased epigastric abdominal pain with feeling of fullness and bloating and has had multiple episodes of pancreatitis in the past and has followed up at [facility]. Patient did have increased nausea with inability to tolerate oral intake and denies vomiting. Patient follows with Octaviano URIBE in the outpatient setting with a past medical history of pancreatitis 4 times, former smoker. Labs reviewed in the ER initially with a white count of 14.2 hemoglobin was stable, platelets were 316, sodium 138, potassium 4.3, creatinine 0.93, magnesium 1.9, liver functions within normal limits, amylase 4468 and lipase over 20,000. Urinalysis was negative. Patient was admitted for acute pancreatitis and started on IV hydration as well as pain management. Patient is n.p.o. on admission. Patient was seen by the general surgery recommending a liver ultrasound which was completed on revealing no acute abdominal process. No reports of any ductal dilation. Noted that patient does not have a gallbladder. His LFTs are improving and his amylase is down to 528 and his lipase is down to 638. Patient recommending diet as tolerated and to increase his oral water intake. His symptoms clinically have improved hydration he is only now reporting mild abdominal discomfort. He has been cleared by general surgery for evaluation there was no GI coverage this hospital stay and he can follow-up with his at of specialist as well as Dr. Silveira who he has seen in the past. Medically he is stable for discharge hemodynamically he is stable. Please see medication reconciliation for list of current medication. Thank you for allowing us to participate in the care of this patient. The impression and plan of care has been dictated by Toyin Whitney Nurse Practitioner as directed. Dr. Vanessa MD I have performed a history and physical examination and medical decision making of this patient, discussed the same with the dictator, and agree with the dictators assessment and plan as written, documented as a scribe. Based on total visit time, I have performed more than 50% of this visit. Patient Condition at Discharge: Stable Plan - Discharge Summary New Discharge Prescriptions: Continue Acetaminophen Tab [Tylenol] 650 mg PO Q6HR PRN tab PRN Reason: Mild Pain Or Fever > 100.5 Albuterol Sulfate [Albuterol Sulfate Hfa] 2 puff PO RT-Q6H PRN PRN Reason: Shortness Of Breath Discharge Medication List Acetaminophen Tab [Tylenol] 650 mg PO Q6HR PRN tab 12/28/22 [Rx] Albuterol Sulfate [Albuterol Sulfate Hfa] 2 puff PO RT-Q6H PRN 10/06/23 [History] Follow up Appointment(s)/Referral(s): Brittanie Silveira MD [STAFF PHYSICIAN] - 1 Week Octaviano Davalos PAC [Primary Care Provider] - 1-2 days Ambulatory/Diagnostic Orders: Amylase [LAB.AMB] Location: None Selected Comprehensive Metabolic Panel [LAB.AMB] Time Frame: 3 Days, Location: None Selected Lipase [LAB.AMB] Location: None Selected Patient Instructions/Handouts: Pancreatitis (GEN) Activity/Diet/Wound Care/Special Instructions: Please follow up with your GI specialist out of [facility] on discharge. Repeat labs in 2 to 3 days Recommend to see your PCP Dr. Davalos in 2 to 3 days. Diet as tolerated Activity limited until follow up Discharge Disposition: HOME SELF-CARE
== END 2023-10-08 14:27 | disposition home or self-care (01) | DRG 440 ==
LOC: EC 22:05 → 6NMEDSUR 10-06 01:23 → OBSVTOIN 10-06 12:26 → 6NMEDSUR 10-06 16:39
PROVIDERS: ADMIT Hospitalist; ATTEND Hospitalist
DX: K85.90 Acute pancreatitis without necrosis or infection, unspecified (principal); M19.90 Unspecified osteoarthritis, unspecified site; L40.9 Psoriasis, unspecified; R74.01 Elevation of levels of liver transaminase levels; I10 Essential (primary) hypertension; Z87.01 Personal history of pneumonia (recurrent); Z90.49 Acquired absence of other specified parts of digestive tract; Z87.891 Personal history of nicotine dependence; Z86.16 Personal history of COVID-19
CPT/HCPCS: 36415; 74150; 76705; 80053; 81003; 82150; 83605; 83690; 83735; 84478; 85025; 96361; 96374; 96375; 96376; 99285

== ENCOUNTER 2024-07-02 21:36 | Observation (INO) | payer BC ==
--- NOTE | 2024-07-02 21:54 | ED ---
Abdominal Pain HPI - General Chief Complaint: Abdominal Pain Stated Complaint: Abd pain Time Seen by Provider: 07/02/24 21:38 Source: patient, EMS, RN notes reviewed Mode of arrival: EMS Limitations: no limitations - History of Present Illness Initial Comments: 58-year-old male presents emergency department complaint of mid abdominal pain. Patient states is a reoccurring condition which she has pancreatitis. Patient states his pain is very similar to the past. Patient has been evaluated extensively by GI including at [facility] and has been diagnosed with idiopathic pancreatitis. Patient states that certain dietary things to flareup. Patient has had prior cholecystectomy denies being alcoholic. Patient does admit to nausea but did receive Zofran and fentanyl for the pain which has helped. - Related Data Home Medications Medication Instructions Recorded Confirmed Albuterol Sulfate [Albuterol 2 puff PO RT-Q6H PRN 10/06/23 10/06/23 Sulfate Hfa] Previous Rx's Medication Instructions Recorded Acetaminophen Tab [Tylenol] 650 mg PO Q6HR PRN tab 12/28/22 Allergies Allergy/AdvReac Type Severity Reaction Status Date / Time No Known Allergies Allergy Verified 07/02/24 21:49 Review of Systems ROS Statement: Those systems with pertinent positive or pertinent negative responses have been documented in the HPI. ROS Other: All systems not noted in ROS Statement are negative. Past Medical History Past Medical History: Hypertension, Osteoarthritis (OA), Pneumonia, Skin Disorder Additional Past Medical History / Comment(s): bronchial pneumonia, 08/13/18 pancreatitis (12 times, on and off for past 4 years), bilateral knees worn cartlidge-receives injections, psoriasis, History of Any Multi-Drug Resistant Organisms: None Reported Past Surgical History: Cholecystectomy, Orthopedic Surgery Additional Past Surgical History / Comment(s): L nephrectomy (donor), L knee surgery for meniscus tear, L thumb injury with tendon repair, colonoscopy, bilateral eye lasik surgery for vision correcti Past Anesthesia/Blood Transfusion Reactions: No Reported Reaction Past Psychological History: No Psychological Hx Reported Smoking Status: Former smoker Past Alcohol Use History: Occasional Past Drug Use History: None Reported - Past Family History Father Family Medical History: COPD Additional Family Medical History / Comment(s): Father lived to be 89yrs old. He was a smoker. Mother Family Medical History: CVA/TIA Additional Family Medical History / Comment(s): Mother has heart issues and CVA. She is 89yrs old. General Exam Limitations: no limitations General appearance: alert, in no apparent distress Head exam: Present: atraumatic, normocephalic, normal inspection Eye exam: Present: normal appearance, PERRL, EOMI. Absent: scleral icterus, c onjunctival injection, periorbital swelling ENT exam: Present: normal exam, normal oropharynx, mucous membranes moist Neck exam: Present: normal inspection, full ROM. Absent: tenderness, meningismus, lymphadenopathy Respiratory exam: Present: normal lung sounds bilaterally. Absent: respiratory distress, wheezes, rales, rhonchi, stridor Cardiovascular Exam: Present: regular rate, normal rhythm, normal heart sounds. Absent: systolic murmur, diastolic murmur, rubs, gallop, clicks GI/Abdominal exam: Present: soft, tenderness, normal bowel sounds. Absent: distended, guarding, rebound, rigid Back exam: Absent: CVA tenderness (R), CVA tenderness (L) Neurological exam: Present: alert Skin exam: Present: warm, dry, intact, normal color. Absent: rash Course Vital Signs 07/02/24 21:45 Temperature 98.0 F Pulse Rate 76 Respiratory 20 Rate Blood Pressure 155/90 O2 Sat by Pulse 98 Oximetry Medical Decision Making - Medical Decision Making Was pt. sent in by a medical professional or institution ([facility]Y Ortiz, TYPE CASTER, urgent care, hospital, or [facility]...) When possible be specific @ -No Did you speak to anyone other than the patient for history (EMS, parent, family, police, friend...)? What history was obtained from this source @ -No Did you review nursing and triage notes (agree or disagree)? Why? @ -I reviewed and agree with nursing and triage notes Were old charts reviewed (outside hosp., previous admission, EMS record, old EKG, old radiological studies, urgent care reports/EKG's, [facility] records)? Report findings @ -Review of prior inpatient records including CBC, CMP and lipase Differential Diagnosis (chest pain, altered mental status, abdominal pain women, abdominal pain men, vaginal bleeding, weakness, fever, dyspnea, syncope, headache, dizziness, GI bleed, back pain, seizure, CVA, palpatations, mental health, musculoskeletal)? @ -Differential Abdominal Pain Men: Appendicitis, cholecystitis, diverticulosis, ischemic bowel, pancreatitis, hepatitis, UTI, gastroenteritis, AAA, incarcerated hernia, bowel obstruction, constipation, inflammatory bowel, hepatitis, peptic ulcer disease, splenic infarction, perforated viscus, testicular torsion, this is not meant to be an all-inclusive list EKG interpreted by me (3pts min.). @ -None X-rays interpreted by me (1pt min.). @ -None done CT interpreted by me (1pt min.). @ -None done U/S interpreted by me (1pt. min.). @ -None done What testing was considered but not performed or refused? (CT, X-rays, U/S, labs)? Why? @ -None What meds were considered but not given or refused? Why? @ -None Did you discuss the management of the patient with other professionals (professionals i.e. , PA, TYPE CASTER, lab, RT, psych nurse, social media marketing manager, wiring inspector, teacher, aoc airspace control officer, clinical case manager)? Give summary @ -No Was smoking cessation discussed for >3mins.? @ -No Was critical care preformed (if so, how long)? @ -No Were there social determinants of health that impacted care today? How? (Homelessness, low income, unemployed, alcoholism, drug addiction, transportation, low edu. Level, literacy, decrease access to med. care, group home, rehab)? @ -No Was there de-escalation of care discussed even if they declined (Discuss DNR or withdrawal of care, Hospice)? DNR status @ -No What co-morbidities impacted this encounter? (DM, HTN, Smoking, COPD, CAD, Cancer, CVA, ARF, Chemo, Hep., AIDS, mental health diagnosis, sleep apnea, morbid obesity)? @ -Pancreatitis Was patient admitted / discharged? Hospital course, mention meds given and route, prescriptions, significant lab abnormalities, going to OR and other pertinent info. @ -Admitted patient's found to have elevated lipase, amylase consistent with pancreatitis. Patient has acute on chronic pancreatitis of unknown etiology. Patient will be started maintenance with n.p.o., analgesics patient has mild EAN. Undiagnosed new problem with uncertain prognosis? @ -No Drug Therapy requiring intensive monitoring for toxicity (Heparin, Nitro, Insulin, Cardizem)? @ -No Were any procedures done? @ -No Diagnosis/symptom? @ -Pancreatitis, EAN Acute, or Chronic, or Acute on Chronic? @ -Acute Uncomplicated (without systemic symptoms) or Complicated (systemic symptoms)? @ -Complicated Side effects of treatment? @ -No Exacerbation, Progression, or Severe Exacerbation? @ -No Poses a threat to life or bodily function? How? (Chest pain, [place], [place], pneumonia, PE, COPD, DKA, ARF, appy, cholecystitis, CVA, Diverticulitis, Homicidal, Suicidal, threat to staff... and all critical care pts) @ -Yes low likelihood of pancreatitis - Lab Data Result diagrams: 07/02/24 22:00 07/02/24 22:00 Lab Results 07/02/24 07/02/24 07/02/24 Range/Units 22:00 22:00 22:00 WBC 8.2 (3.8-10.6) k/uL RBC 4.99 (4.30-5.90) m/uL Hgb 15.2 (13.0-17.5) gm/dL Hct 45.3 (39.0-53.0) % MCV 90.8 (80.0-100.0) fL MCH 30.4 (25.0-35.0) pg MCHC 33.5 (31.0-37.0) g/dL RDW 12.0 (11.5-15.5) % Plt Count 230 (150-450) k/uL MPV 6.9 Neutrophils % 65 % Lymphocytes % 19 % Monocytes % 6 % Eosinophils % 7 % Basophils % 1 % Neutrophils # 5.3 (1.3-7.7) k/uL Lymphocytes # 1.6 (1.0-4.8) k/uL Monocytes # 0.5 (0-1.0) k/uL Eosinophils # 0.6 (0-0.7) k/uL Basophils # 0.0 (0-0.2) k/uL Sodium 139 (137-145) mmol/L Potassium 3.9 (3.5-5.1) mmol/L Chloride 107 (98-107) mmol/L Carbon Dioxide 22 (22-30) mmol/L Anion Gap 10 mmol/L BUN 23 H (9-20) mg/dL Creatinine 1.27 H (0.66-1.25) mg/dL Est GFR (CKD-EPI)AfAm 73 (>60 ml/min/1.73 sqM) Est GFR (CKD-EPI)NonAf 63 (>60 ml/min/1.73 sqM) Glucose 161 H (74-99) mg/dL Plasma Lactic Acid Tenzin 1.3 (0.7-2.0) mmol/L Calcium 8.7 (8.4-10.2) mg/dL Total Bilirubin 0.5 (0.2-1.3) mg/dL AST 58 (17-59) U/L ALT 36 (4-49) U/L Alkaline Phosphatase 95 (38-126) U/L Total Protein 7.1 (6.3-8.2) g/dL Albumin 4.2 (3.5-5.0) g/dL Amylase 1228 H* (30-110) U/L Lipase 13705 H (23-300) U/L Urine Color Urine Appearance (Clear) Urine pH (5.0-8.0) Ur Specific [employer] (1.001-1.035) Urine Protein (Negative) Urine Glucose (UA) (Negative) Urine Ketones (Negative) Urine Blood (Negative) Urine Nitrite (Negative) Urine Bilirubin (Negative) Urine Urobilinogen (<2.0) mg/dL Ur Leukocyte Esterase (Negative) 07/02/24 Range/Units 23:16 WBC (3.8-10.6) k/uL RBC (4.30-5.90) m/uL Hgb (13.0-17.5) gm/dL Hct (39.0-53.0) % MCV (80.0-100.0) fL MCH (25.0-35.0) pg MCHC (31.0-37.0) g/dL RDW (11.5-15.5) % Plt Count (150-450) k/uL MPV Neutrophils % % Lymphocytes % % Monocytes % % Eosinophils % % Basophils % % Neutrophils # (1.3-7.7) k/uL Lymphocytes # (1.0-4.8) k/uL Monocytes # (0-1.0) k/uL Eosinophils # (0-0.7) k/uL Basophils # (0-0.2) k/uL Sodium (137-145) mmol/L Potassium (3.5-5.1) mmol/L Chloride (98-107) mmol/L Carbon Dioxide (22-30) mmol/L Anion Gap mmol/L BUN (9-20) mg/dL Creatinine (0.66-1.25) mg/dL Est GFR (CKD-EPI)AfAm (>60 ml/min/1.73 sqM) Est GFR (CKD-EPI)NonAf (>60 ml/min/1.73 sqM) Glucose (74-99) mg/dL Plasma Lactic Acid Tenzin (0.7-2.0) mmol/L Calcium (8.4-10.2) mg/dL Total Bilirubin (0.2-1.3) mg/dL AST (17-59) U/L ALT (4-49) U/L Alkaline Phosphatase (38-126) U/L Total Protein (6.3-8.2) g/dL Albumin (3.5-5.0) g/dL Amylase (30-110) U/L Lipase (23-300) U/L Urine Color Colorless Urine Appearance Clear (Clear) Urine pH 6.0 (5.0-8.0) Ur Specific [employer] 1.017 (1.001-1.035) Urine Protein Negative (Negative) Urine Glucose (UA) Negative (Negative) Urine Ketones Negative (Negative) Urine Blood Negative (Negative) Urine Nitrite Negative (Negative) Urine Bilirubin Negative (Negative) Urine Urobilinogen <2.0 (<2.0) mg/dL Ur Leukocyte Esterase Negative (Negative) Disposition Clinical Impression: Acute pancreatitis, EAN (acute kidney injury) Disposition: ADMITTED IP TO THIS [facility] Condition: Fair Referrals: Onesimo Matute MD [Primary Care Provider] - 1-2 days Time of Disposition: 23:44
[2024-07-02] MEDS: SODIUM CHLORIDE 0.9% 2,000 ML IV STA (22:09)
[2024-07-02 22:21] LABS: Basophils % (A) 1 %; Eosinophils # (A) 0.6 k/uL (0-0.7); Eosinophils % (A) 7 %; HCT 45.3 % (39.0-53.0); HGB 15.2 gm/dL (13.0-17.5); Lymphocytes # (A) 1.6 k/uL (1.0-4.8); Lymphocytes % (A) 19 %; MCH 30.4 pg (25.0-35.0); MCHC 33.5 g/dL (31.0-37.0); MCV 90.8 fL (80.0-100.0); Mean Platelet Volume 6.9; Monocytes # (A) 0.5 k/uL (0-1.0); Monocytes % (A) 6 %; Neutrophils # (A) 5.3 k/uL (1.3-7.7); Neutrophils % (A) 65 %; Platelet Count 230 k/uL (150-450); RBC 4.99 m/uL (4.30-5.90); WBC 8.2 k/uL (3.8-10.6)
[2024-07-02 22:33] LABS: ALT 36 U/L (4-49); AST 58 U/L (17-59); African American GFR (CKD) 73 (>60 ml/min/1.73 sqM); Albumin 4.2 g/dL (3.5-5.0); Alkaline Phosphatase 95 U/L (38-126); Anion Gap 10 mmol/L; Blood Urea Nitrogen 23 mg/dL (9-20); Calcium 8.7 mg/dL (8.4-10.2); Carbon Dioxide 22 mmol/L (22-30); Chloride 107 mmol/L (98-107); Glucose 161 mg/dL (74-99); Non-African American GFR(CKD) 63 (>60 ml/min/1.73 sqM); Potassium 3.9 mmol/L (3.5-5.1); Sodium 139 mmol/L (137-145); Total Bilirubin 0.5 mg/dL (0.2-1.3); Total Protein 7.1 g/dL (6.3-8.2)
[2024-07-02 23:17] LABS: Amylase 1228 U/L (30-110)
[2024-07-02 23:19] LABS: Lipase 17723 U/L (23-300)
[2024-07-02 23:30] LABS: Appearance,Urine Clear (Clear); Bilirubin,Urine Negative (Negative); Blood,Urine Negative (Negative); Color,Urine Colorless; Glucose,Urine (UA) Negative (Negative); Ketones,Urine Negative (Negative); Leukocyte Esterase,Urine Negative (Negative); Nitrite,Urine Negative (Negative); Protein,Urine Negative (Negative); Specific Gravity,Urine 1.017 (1.001-1.035); Urobilinogen,Urine <2.0 mg/dL (<2.0)
[2024-07-02] MEDS ORDERED: HYDROmorphone 0.5 MG/0.5 ML SYRINGE IVP PRN (23:44)
[2024-07-02] MEDS ORDERED: ONDANSETRON 4 MG/2 ML VIAL IVP PRN (23:44)
[2024-07-02] MEDS ORDERED: NALOXONE 0.4 MG/ML 1 ML VIAL IV PRN (23:44)
[2024-07-03] MEDS: SODIUM CHLORIDE 0.9% 1,000 ML IV SCH (00:10)
[2024-07-03] MEDS: LACTATED RINGERS 1,000 ML IV ONE (00:35)
--- NOTE | 2024-07-03 00:41 | P.HPIM ---
History of Present Illness H&P Date: 07/03/24 Chief Complaint: Pancreatitis History of present illness; Very pleasant 58-year-old man with chronic idiopathic episodes of pancreatitis. Presents to the emergency department with mid abdominal pain. Patient has had multiple episodes of pancreatitis in the past and followed up at the [facility] and was diagnosed with idiopathic pancreatitis. Patient states that certain dietary things lead to a flareup, however he is unsure exactly what and does admit to having an overall poor diet. Patient has had a prior cholecystectomy and denies being alcoholic. Additionally, after following up with [facility], he receives an [facility] P on a yearly basis, his most recent one Patient has received Zofran and fentanyl which alleviated his nausea and helps with his pain. He states that this episode is similar to the previous episodes in how it came about and the course, although he says some events he has worse pain than with others. He states that when the pain first began earlier tonight (07/02) he rated it as a 12/10, noting he felt as though he was gasping for air and unable to get any words out. He is currently resting comfortable, rating the pain as a 5/10 without any acute complaints. He understands the general course of recovering from these episodes, as he has had so many in the past and states he is currently feeling well. Vitals: -Blood pressure 125/90, heart rate 76, respiratory rate 20, SpO2 98% on room air Patient admitted to internal medicine service REVIEW OF SYSTEMS: CONSTITUTIONAL: No fever, no malaise, no fatigue. HEENT: No recent visual problems or hearing problems. Denied any sore throat. CARDIOVASCULAR: No chest pain, orthopnea, PND, no palpitations, no syncope. PULMONARY: No shortness of breath, no cough, no hemoptysis. GASTROINTESTINAL: Some nausea noted when the pain first started, but since resolved. NEUROLOGICAL: No headaches, no weakness, no numbness. HEMATOLOGICAL: Denies any bleeding or petechiae. GENITOURINARY: Denies any burning micturition, frequency, or urgency. MUSCULOSKELETAL/RHEUMATOLOGICAL: Denies any joint pain, swelling, or any muscle pain. ENDOCRINE: Denies any polyuria or polydipsia. The rest of the 14-point review of systems is negative. PHYSICAL EXAMINATION: GENERAL: The patient is alert and oriented x3, not in any acute distress. Well developed, well nourished. HEENT: Pupils are round and equally reacting to light. EOMI. No scleral icterus. No conjunctival pallor. Normocephalic, atraumatic. No pharyngeal erythema. No thyromegaly. CARDIOVASCULAR: S1 and S2 present. No murmurs, rubs, or gallops. PULMONARY: Chest is clear to auscultation, no wheezing or crackles. ABDOMEN: Some mild tenderness to palpation of the mid-epigastric area with some distention. normoactive bowel sounds heard. MUSCULOSKELETAL: No joint swelling or deformity. EXTREMITIES: No cyanosis, clubbing, or pedal edema. NEUROLOGICAL: Gross neurological examination did not reveal any focal deficits. SKIN: No rashes. Assessment and plan 58-year-old man with hypertension and osteoarthritis. Presents to the emergency department with mid abdominal pain. Patient has had multiple episodes of pancreatitis in the past and followed up at the [facility] and was diagnosed with idiopathic pancreatitis. Patient has been admitted for further observation for his acute episode of pancreatitis. #Acute pancreatitis -Amylase 1,228, lipase 17,723 -Monitor repeat amylase and lipase -Continue with lactated Ringer 150 cc/h -Keep patient n.p.o. for the moment, introduce diet as soon as able -W/O nausea and vomiting, with decrease in pain and inflammatory markers, begin oral feeding within 24-48 hours of onset; starting with low fat, soft diet and advance cautiously as tolerated. -Pain control with Dilaudid 0.5 mg and 1 mg IV push every 3 hours as needed -Triglycerides currently pending -Monitor vital signs -Monitor Is and Os, titrate fluids to maintain urine output >0.5-1 cc/kg/hr -Monitor electrolytes with morning CMP #Acute kidney injury -BUN 23, creatinine 1.27 on arrival -Patient will continue receiving lactated Ringer 150 cc/h -Monitor CMP in morning Code Status: Full Code GI prohylaxis: Protonix 40 mg IV daily DVT prophylaxis: 5000 units heparin subcu every 8 hours Dictation was produced using [employer] dictation software. please excuse any grammatical, word or spelling errors. Past Medical History Past Medical History: Hypertension, Osteoarthritis (OA), Pneumonia, Skin Disorder Additional Past Medical History / Comment(s): bronchial pneumonia, 08/13/18 pancreatitis (12 times, on and off for past 4 years), bilateral knees worn cartlidge-receives injections, psoriasis, History of Any Multi-Drug Resistant Organisms: None Reported Past Surgical History: Cholecystectomy, Orthopedic Surgery Additional Past Surgical History / Comment(s): L nephrectomy (donor), L knee surgery for meniscus tear, L thumb injury with tendon repair, colonoscopy, bilateral eye lasik surgery for vision correcti Past Anesthesia/Blood Transfusion Reactions: No Reported Reaction Past Psychological History: No Psychological Hx Reported Smoking Status: Former smoker Past Alcohol Use History: Occasional Past Drug Use History: None Reported - Past Family History Father Family Medical History: COPD Additional Family Medical History / Comment(s): Father lived to be 89yrs old. He was a smoker. Mother Family Medical History: CVA/TIA Additional Family Medical History / Comment(s): Mother has heart issues and CVA. She is 89yrs old. Medications and Allergies Home Medications Medication Instructions Recorded Confirmed Type Acetaminophen Tab [Tylenol] 650 mg PO Q6HR PRN tab 12/28/22 10/06/23 Rx Albuterol Sulfate [Albuterol 2 puff PO RT-Q6H PRN 10/06/23 10/06/23 History Sulfate Hfa] Allergies Allergy/AdvReac Type Severity Reaction Status Date / Time No Known Allergies Allergy Verified 07/02/24 21:49 Physical Exam Vitals: Vital Signs Temp Pulse Resp BP Pulse Ox 07/02/24 21:45 98.0 F 76 20 155/90 98 Intake and Output 07/02/24 07/02/24 07/03/24 14:59 22:59 06:59 Other: Weight 90.718 kg Results CBC & Chem 7: 07/02/24 22:00 07/02/24 22:00 Labs: Abnormal Lab Results - Last 24 Hours (Table) 07/02/24 Range/Units 22:00 BUN 23 H (9-20) mg/dL Creatinine 1.27 H (0.66-1.25) mg/dL Glucose 161 H (74-99) mg/dL Amylase 1228 H* (30-110) U/L Lipase 63882 H (23-300) U/L Assessment and Plan Assessment: I have seen and evaluated the patient today. I Discussed the case with the resident and agree with the resident's findings I edited the assessment and plan as necessary as documented in the resident's note.
[2024-07-03] MEDS: LACTATED RINGERS 1,000 ML BAG IV STA (01:39)
[2024-07-03] MEDS: HYDROmorphone 1 MG/ML 1 ML SYRINGE IVP PRN (02:20)
[2024-07-03] MEDS: MORPHINE SULFATE 2 MG/ML SYRINGE IVP PRN (05:30)
[2024-07-03 08:38] LABS: Basophils # (A) 0.08 X 10*3/uL (0.00-0.10); Eosinophils # (A) 0.51 X 10*3/uL (0.04-0.35); Eosinophils % (A) 6.6 %; HCT 41.5 % (39.6-50.0); HGB 14.5 g/dL (13.0-17.0); Lymphocytes % (A) 23.2 %; MCH 30.9 pg (27.0-32.0); MCHC 34.9 g/dL (32.0-37.0); MCV 88.3 FL (80.0-97.0); Mean Platelet Volume 9.5 FL (9.5-12.2); Monocytes # (A) 0.53 X 10*3/uL (0.20-1.00); Monocytes % (A) 6.8 %; NRBC Per 100 WBC 0 X 10*3/uL (0.00-0.01); Platelet Count 228 X 10*3/uL (140-440); RDW 11.9 % (11.5-14.5); WBC 7.75 X 10*3/uL (4.50-10.00)
[2024-07-03 08:43] LABS: Amylase 673 U/L (23-121); Blood Urea Nitrogen 17.6 mg/dL (9.0-27.0); Chloride 109 mmol/L (96-109); Glucose 97 mg/dL (70-110); Potassium 4.4 mmol/L (3.5-5.5); Sodium 140 mmol/L (135-145)
[2024-07-03 08:44] LABS: ALT 32 U/L (10-49); AST 36 U/L (14-35); Albumin 3.8 g/dL (3.8-4.9); Albumin/Globulin Ratio 1.58 Ratio (1.60-3.17); Alkaline Phosphatase 98 U/L (41-126); Calcium 8.3 mg/dL (8.7-10.3); Carbon Dioxide 22.4 mmol/L (21.6-31.8); Globulin 2.4 g/dL (1.6-3.3); Total Bilirubin 0.3 mg/dL (0.3-1.2); Total Protein 6.2 g/dL (6.2-8.2)
[2024-07-03] MEDS: PANTOPRAZOLE 40 MG/10 ML VIAL IV SCH (08:49)
[2024-07-03] MEDS: HEPARIN SODIUM,PORCINE 5,000 UNIT/ML 1 ML VIAL SQ SCH (08:50)
[2024-07-03 08:59] LABS: Lipase 1049 U/L (14-60)
[2024-07-03] MEDS: LACTATED RINGERS 1,000 ML IV SCH (09:02)
--- NOTE | 2024-07-03 10:58 | P.PN ---
Subjective Progress Note Date: 07/03/24 Hospital course: 58-year-old male with history of hypertension, and chronic idiopathic episodes of pancreatitis presented to the ER with mid abdominal pain. Patient is currently admitted to hospital for acute pancreatitis with initial laboratory evaluation showing lipase 17,723 and amylase 1228. Rest of the labs shows WBC 8.2, hemoglobin 15.2, sodium 139, potassium 3.9, BUN 23, creatinine 1.27, glucos e 161, calcium 8.7. Vital signs: Tmax 98.0 F, pulse rate 76, respiratory rate 20, blood pressure 155/90, oxygen saturation 98% on room air. Patient started on IV fluids and IV antibiotics. Subjective: Patient seen and examined at the bedside. Patient continues to endorse epigastric pain, 5/10, nonradiating, improving. Denies any nausea and/or vomiting. All Systems reviewed and pertinent positives and negatives noted in HPI, all other symptoms are negative Objective: Vital signs reviewed. General: non toxic, no distress, appears at stated age, normal weight Derm: no unusual rashes/lesions, warm Head: atraumatic, normocephalic, symmetric Eyes: EOMI, no lid lag, anicteric sclera, pupils equal round reactive to light ENT: Nose and ears atraumatic Neck: No cervical lymphadenopathy, trachea midline, supple Mouth: no lip lesion, mucus membranes moist Cardiovascular: S1S2 reg, no murmur, positive dorsalis pedis pulse bilateral, no edema Lungs: CTA bilateral, no rhonchi, no rales, no accessory muscle use Abdominal: soft, mild tenderness upon palpation of the epigastric region, bowel sounds positive with no guarding present. Ext: muscle strength 5 out of 5 in all 4 extremities grossly, no gross muscle atrophy, no contractures, Neuro: CN II-XI grossly intact, no gross focal neuro deficits Psych: Alert, oriented, appropriate affect Data reviewed today: Pertinent Labs: WBC 7.75, hemoglobin 14.5, sodium 140, potassium 4.4, BUN 13.6, creatinine 1.1, triglyceride 185, amylase 163, lipase 1049 Images: No new imaging Assessment and Plan: 58-year-old man with hypertension and osteoarthritis. Presents to the emergency department with mid abdominal pain. Patient has had multiple episodes of pancreatitis in the past and followed up at the [facility] and was diagnosed with idiopathic pancreatitis. Patient has been admitted for further observation for his acute episode of pancreatitis. #Acute pancreatitis Amylase lipase trending down Continue with lactated Ringer 150 cc/h Advance diet to clear liquid, if tolerated, then advance to soft low-fat diet. Pain control with Dilaudid 0.5 mg and 1 mg IV push every 3 hours as needed Triglycerides 185 Continue monitor vital signs Continue monitor I's and O's, titrate fluids to maintain urine output >0.5-1 cc/kg/hr Repeat BMP in morning #Acute kidney injury, resolved Creatinine trended down to 1.1 Continue with IV fluids as above Monitor BMP F: Lactated Ringer at 150 cc/h E: Replete as needed N: Clear liquid diet then if tolerated low-fat diet A: Patient is ambulatory without assist DVT ppx: Subcu heparin Code Status: Full code Anticipated discharge place: Home Anticipated discharge date: Within 24 to 48 hours I have seen and evaluated the patient today. Discussed with the resident and agree with the residents finding and plan as documented in the resident's note. Changes highlighted in blue font. Objective - Vital Signs Vital signs: Vital Signs Temp 97.6 F 07/03/24 07:00 Pulse 59 L 07/03/24 07:00 Resp 16 07/03/24 07:00 BP 139/69 07/03/24 07:00 Pulse Ox 99 07/03/24 07:00 FiO2 Intake & Output 07/02/24 07/03/24 07/03/24 18:59 06:59 18:59 Weight 90.718 kg Other: # Voids 2 - Labs CBC & Chem 7: 07/03/24 04:07 07/03/24 04:07 Labs: Abnormal Lab Results - Last 24 Hours (Table) 07/02/24 07/03/24 07/03/24 Range/Units 22:00 04:07 04:07 Eosinophils # 0.51 H (0.04-0.35) X 10*3/uL BUN 23 H (9-20) mg/dL Creatinine 1.27 H (0.66-1.25) mg/dL Glucose 161 H (74-99) mg/dL Calcium 8.3 L (8.7-10.3) mg/dL AST 36 H (14-35) U/L Albumin/Globulin Ratio 1.58 L (1.60-3.17) Ratio Triglycerides 185.00 H (0.00-149.00) mg/dL Amylase 1228 H* 673 H (30-110) U/L Lipase 01583 H 1049 H (23-300) U/L
[2024-07-03] MEDS: ACETAMINOPHEN TAB 325 MG TAB PO PRN (16:45)
[2024-07-04 02:00] VITALS: RESP 16
[2024-07-04 07:10] VITALS: BP 149/83; PULSE 64; TEMP 98
[2024-07-04 08:39] LABS: Basophils # (A) 0.07 X 10*3/uL (0.00-0.10); Basophils % (A) 1.6 %; Eosinophils # (A) 0.46 X 10*3/uL (0.04-0.35); Eosinophils % (A) 10.4 %; HCT 42.3 % (39.6-50.0); HGB 14.7 g/dL (13.0-17.0); Lymphocytes # (A) 1.75 X 10*3/uL (0.90-5.00); Lymphocytes % (A) 39.7 %; MCHC 34.8 g/dL (32.0-37.0); MCV 89.2 FL (80.0-97.0); Mean Platelet Volume 10.1 FL (9.5-12.2); Monocytes # (A) 0.39 X 10*3/uL (0.20-1.00); Monocytes % (A) 8.8 %; NRBC Per 100 WBC 0 X 10*3/uL (0.00-0.01); Neutrophils # (A) 1.72 X 10*3/uL (1.80-7.70); Platelet Count 226 X 10*3/uL (140-440); RBC 4.74 X 10*6/uL (4.40-5.60); RDW 12.1 % (11.5-14.5); WBC 4.41 X 10*3/uL (4.50-10.00)
[2024-07-04 08:51] LABS: BUN/Creat Ratio 11.89 Ratio (12.00-20.00); Blood Urea Nitrogen 10.7 mg/dL (9.0-27.0); Chloride 107 mmol/L (96-109); Glucose 87 mg/dL (70-110); Potassium 4.1 mmol/L (3.5-5.5); Sodium 142 mmol/L (135-145)
[2024-07-04 08:52] LABS: Calcium 9.2 mg/dL (8.7-10.3)
--- NOTE | 2024-07-04 10:54 | P.DS ---
Providers Date of admission: 07/02/24 23:45 Expected date of discharge: 07/04/24 Attending physician: Lashonda Bustos MD Primary care physician: Onesimo Matute [facility] Course: Discharge Diagnosis: #Acute pancreatitis #Acute kidney injury, resolved Hospital Course: 58-year-old male with history of hypertension, and chronic idiopathic episodes of pancreatitis presented to the ER with mid abdominal pain. Patient is admitted to hospital for acute pancreatitis with initial laboratory evaluation showing lipase 17,723 and amylase 1228. Rest of the labs shows WBC 8.2, hemoglobin 15.2, sodium 139, potassium 3.9, BUN 23, creatinine 1.27, glucose 161, calcium 8.7. Vital signs: Tmax 98.0 F, pulse rate 76, respiratory rate 20, blood pressure 155/90, oxygen saturation 98% on room air. Patient started on IV fluids and IV antibiotics. Patient reports improvement in his symptoms and started tolerating oral liquids. Repeat lab work shows downtrending WBCs and improving pancreatic enzymes. Patient no longer complaining of abdominal pain and tolerating food well. Patient is medically optimized and hemodynamically stable for discharge home. Discharge instructions: Patient advised to follow-up with PCP and gastroenterology at [facility]. Patient is advised to follow a low-fat diet and provided handout for it. Patient to continue with his home medications as directed. Vital signs reviewed. Gen: in no apparent distress, resting comfortably in bed Eyes: PERRL, no scleral injection or icterus HENT: normocephalic, atraumatic, good hearing acuity, moist mucous membranes Neck: full range of motion Resp: CTAB, no rales, rhonchi, or wheezes CVS: normal S1 and S2, no murmurs, rubs or gallops, no edema GI: soft, NTTP, ND, no hepatosplenomegaly : no suprapubic tenderness, no CVAT, gómez catheter is not present MSK: no clubbing, no cyanosis, no noted contractures of extremities Skin: no noted rashes, petechiae; temperature of skin is appropriate Neuro: moving all extremities without signs of weakness, CN II-XII intact Psych: cooperative, euthymic mood, insight and judgment intact A total of 35 minutes of time were spent preparing this complex discharge summary. Patient was discharged on 07/04/24 at 928. I have seen and evaluated the patient today. Discussed with the resident and agree with the residents finding and plan as documented in the resident's note. Changes highlighted in blue font. Patient Condition at Discharge: Fair Plan - Discharge Summary Discharge Rx Participant: No New Discharge Prescriptions: Continue Acetaminophen Tab [Tylenol] 650 mg PO Q6HR PRN tab PRN Reason: Mild Pain Or Fever > 100.5 Albuterol Sulfate [Albuterol Sulfate Hfa] 2 puff PO RT-Q6H PRN PRN Reason: Shortness Of Breath Discharge Medication List Acetaminophen Tab [Tylenol] 650 mg PO Q6HR PRN tab 12/28/22 [Rx] Albuterol Sulfate [Albuterol Sulfate Hfa] 2 puff PO RT-Q6H PRN 10/06/23 [History] Follow up Appointment(s)/Referral(s): Onesimo Matute MD [Primary Care Provider] - 1-2 days Patient Instructions/Handouts: Pancreatitis (DC), Low Fat Diet (DC) Activity/Diet/Wound Care/Special Instructions: Please see your PCP and gastroenterology at [facility]. Discharge Disposition: HOME SELF-CARE
== END 2024-07-04 10:43 | disposition home or self-care (01) ==
LOC: EC 21:36 → 6NMEDSUR 23:45
PROVIDERS: ADMIT Internal Medicine; ATTEND Internal Medicine
DX: K85.90 Acute pancreatitis without necrosis or infection, unspecified (principal); K86.1 Other chronic pancreatitis; N17.9 Acute kidney failure, unspecified; I10 Essential (primary) hypertension; M19.90 Unspecified osteoarthritis, unspecified site; Z79.899 Other long term (current) drug therapy; Z87.891 Personal history of nicotine dependence; Z90.49 Acquired absence of other specified parts of digestive tract; Z90.5 Acquired absence of kidney
CPT/HCPCS: 96376; 96361 ×4; 96372 ×2; 96374; 96375; 99285; 36415; 80053 ×2; 80048; 82150 ×2; 83605; 83690 ×2; 84478; 85025 ×3; 81003; G0378 ×4; J1644 ×2; J2270; J1171; J2470